=== PATIENT | female | born 1935 | race Caucasian/White ===

== ENCOUNTER 2024-01-29 17:52 | Inpatient (IN) | payer MEDICARE, OTHER, SELFPAY ==
[2024-01-29] VITALS (19 sets, daily range): BP systolic 148–220; BP diastolic 65–90; PULSE 79–92; RESP 12–29; TEMP 36.7–37; O2SAT 94–98; BMI 16.1
--- NOTE | 2024-01-29 | DI.CT.S_ITS ---
PROCEDURE: CT CERVICAL SPINE WO CON INDICATIONS: Pain TECHNIQUE: Noncontrast 3 mm thick sections acquired from the skull base to the T4 level. Sagittal and coronal reformats were then constructed. For radiation dose reduction, the following was used: automated exposure control, adjustment of mA and/or kV according to patient size. COMPARISON: None. FINDINGS: Image quality: Diagnostic Bones: Moderate spondylotic changes. Vertebral body heights are well maintained. No evidence of traumatic subluxation. There is leftward spinal curvature. Trace anterolisthesis of C7 on T1, probably degenerative Soft tissues: No pathologic prevertebral soft tissue swelling. Chest findings are separately dictated. Vascular calcifications. IMPRESSION: No displaced fracture or traumatic subluxation. Moderate spondylotic changes. If there is high concern for further derangement, consider MRI evaluation. Dictated by: Nahid Montalvo M.D. on 01/29/2024 at 20:04 Approved by: Nahid Montalvo M.D. on 01/29/2024 at 20:05
--- NOTE | 2024-01-29 | DI.CT.S_ITS ---
PROCEDURE: CT CHEST ABD PEL WO CON INDICATIONS: Fall/ Lower back and hip pain TECHNIQUE: After the administration of oral contrast, 5 mm thick sections acquired from the lung apices to the symphysis pubis. 5 mm thick coronal and sagittal reformats acquired, with additional 7 mm coronal MIP reformats through the lungs. For radiation dose reduction, the following was used: automated exposure control, adjustment of mA and/or kV according to patient size. COMPARISON: None. FINDINGS: Image quality: Motion degraded Lungs and pleura: Scattered scarring and atelectasis. No pneumothorax or hemothorax. No pulmonary laceration or contusion. No pleural effusions. No overtly suspicious pulmonary nodule. Follow-up for micro nodules for example in the left is optional for high risk patients. Mediastinum, heart, and esophagus: Not well assessed without intravenous contrast. No definite mediastinal hematoma. Coronary calcifications and annular calcifications. Ectatic ascending aorta 4.1 cm. No pathologic lymph nodes by size criteria. Chest wall and thyroid: Unremarkable Liver: No contour deforming mass. Gallbladder and biliary system: Cholelithiasis. CBD measures 6-7 mm at the upper limit of normal, correlate with LFTs. Pancreas: No ductal dilation Spleen: Nonenlarged Adrenals: No discrete nodules Kidneys: No contour deforming mass or hydronephrosis Evaluation of the solid organs is very limited without IV contrast. Vessels and lymph nodes: Atherosclerotic calcifications. Very tortuous aorta. No definite aneurysmal dilation within the limits of noncontrast evaluation. Bowel and peritoneum: No definite distal bowel obstruction. No drainable abscess or hemoperitoneum identified. Body wall: Unremarkable abdominal wall Pelvis: Distended bladder. A catheter is in place. Air is seen within the bladder likely iatrogenic. Uterus is not seen. The pelvis is obscured by metallic artifact. Bones: Right hip arthroplasty in place. Dislocation of the left hip arthroplasty. No pubic diastasis. Superior endplate height loss at T11, age-indeterminate. Less than 50% height loss. 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 Age-indeterminate superior endplate height loss at T11, less than 50%. No definite acute intrathoracic or intra-abdominal traumatic injury. Very limited noncontrast CT. Cholelithiasis and ectatic CBD, possibly incidental. Correlate with LFTs and right upper quadrant symptoms. Other findings above. Dictated by: Nahid Montalvo M.D. on 01/29/2024 at 20:06 Approved by: Nahid Montalvo M.D. on 01/29/2024 at 20:13
--- NOTE | 2024-01-29 18:10 | DI.CT.S_ITS ---
PROCEDURE: CT HEAD/BRAIN WO CON INDICATIONS: Alt MSE TECHNIQUE: Noncontrast 4.5 mm thick angled axial sections acquired from the foramen magnum to the vertex, with coronal and sagittal reformats. For radiation dose reduction, the following was used: automated exposure control, adjustment of mA and/or kV according to patient size. COMPARISON: None. FINDINGS: Image quality: Evaluation is limited in the posterior fossa due to the metallic artifact CSF spaces: Basal cisterns are patent. Lateral ventricles are symmetric. Volume: Vascular calcifications. Periventricular white matter disease is commonly seen with chronic microangiopathy. Volume loss is present. These findings are moderate Brain: No acute hemorrhage or large territory loss of landa-white differentiation Craniofacial structures: No significant paranasal sinus opacity. IMPRESSION: No acute intracranial abnormality. If there is high concern for parenchymal pathology, consider further evaluation with MRI. Dictated by: Nahid Montalvo M.D. on 01/29/2024 at 20:03 Approved by: Nahid Montalvo M.D. on 01/29/2024 at 20:04
--- NOTE | 2024-01-29 18:31 | ED.GENADULT ---
HPI - General Adult General Chief complaint: Fall Stated complaint: Fall/Confusion Time Seen by Provider: 01/29/24 18:09 History of Present Illness HPI narrative: 89-year-old female found down in her home after she had not been seen for at least 24 hours, we will for check, seemed confused, complaining of left hip pain. Had recent fall. Denied pain to her head, neck, chest, upper back, lower back, abdomen and pelvis. She denies pain to her right leg. She denies pain to shoulders, arms, elbows, wrists, hands. She denied recent cough, shortness of breath or chest pain. She denied nausea vomiting diarrhea. She denies painful urination. She denies numbness or tingling to her left leg, can feel her left foot and leg. She does not think she is taking any blood thinner medications Related Data Home Medications Medication Instructions Recorded Confirmed estradiol 1 mg tablet 1 mg PO DAILY 01/30/24 01/30/24 famotidine 20 mg tablet 20 mg PO DAILY 01/30/24 01/30/24 hydrocodone 10 mg-acetaminophen 1 tab PO Q6H PRN pain 01/30/24 01/30/24 325 mg tablet levothyroxine 75 mcg tablet 75 mcg PO 01/30/24 (Synthroid) montelukast 10 mg tablet 10 mg PO DAILY 01/30/24 01/30/24 Allergies Allergy/AdvReac Type Severity Reaction Status Date / Time pollen extracts Allergy Verified 01/29/24 18:41 Review of Systems Review of Systems Narrative: per HPI Patient History Social History Smoking Status: Never smoker Exam Narrative Exam Narrative: GENERAL: Well-developed patient, in mild distress. HEAD: Atraumatic. Normocephalic. EYES: Pupils equal round and reactive. Extraocular motions intact. No scleral icterus. No injection or drainage. ENT: Nose without bleeding, purulent drainage. Throat without erythema, tonsillar hypertrophy or exudate. Airway patent. NECK: Trachea midline. Non tender CARDIOVASCULAR: Regular rate and rhythm without murmurs, gallops, or rubs. RESPIRATORY: Clear to auscultation. Breath sounds equal bilaterally. No wheezes, rales, or rhonchi. GASTROINTESTINAL: Abdomen soft, non-tender, nondistended. EXTREMITIES: No edema or joint tenderness. Tenderness to left hip lateral and anterior BACK: Nontender without deformity or crepitance. No flank tenderness. Erythema and decubitus changes low lumbar, see nurse documentation photo NEURO: AOx3. Motor limited by pain left lower extremity, otherwise seems to be moving bilateral upper extremities well, right leg without difficulty, can wiggle toes left leg. No facial droop, clear speech SKIN: No rash or erythema of visible areas Initial Vital Signs Initial Vital Signs: Vital Signs Temperature 98.3 F 01/29/24 17:58 Pulse Rate 85 01/29/24 17:58 Respiratory Rate 16 01/29/24 17:58 Blood Pressure 193/79 H 01/29/24 17:58 Pulse Oximetry 98 01/29/24 17:58 Oxygen Delivery Method Room Air 01/29/24 17:58 Course Orders Ordered: Acetaminophen (Acetaminophen 325 Mg Tablet) 650 mg PO Q6H PRN PRN Reason: Fever/Mild Pain (1-3) Hydrocodone Bitart/Acetaminophen (Hydrocodone/Acet 5/325 Tablet) 1 tab PO Q4H PRN PRN Reason: Pain, Moderate (4-6) Hydralazine HCl (Hydralazine 20 Mg/Ml Vial) 10 mg IV Q4H PRN PRN Reason: SBP > 160 Last Admin: 01/30/24 03:57 Dose: 10 mg Documented By: WILLIE Sodium Chloride (Normal Saline 0.9%) 1,000 mls @ 100 mls/hr IV CONT DARIEN Last Admin: 01/30/24 03:36 Dose: Not Given Documented By: WILLIE Naloxone HCl (Naloxone 0.4 Mg/Ml Vial) 0.2 mg IV Q2MIN PRN PRN Reason: Opiate Reversal Sodium Chloride (Sodium Chloride 0.9% Flush) 10 ml IV PRN PRN PRN Reason: Flush Sodium Chloride (Sodium Chloride 0.9% Flush) 10 ml IV BID DARIEN Discontinued Medications Hydromorphone HCl (Hydromorphone 0.5 Mg Inj) 0.5 mg IV NOW ONE Stop: 01/29/24 22:37 Last Admin: 01/29/24 22:40 Dose: 0.5 mg Documented By: Sodium Chloride (Normal Saline 0.9%) 1,000 mls @ 150 mls/hr IV CONT DARIEN Last Infusion: 01/30/24 03:00 Dose: 100 mls/hr Documented By: Admin: 06/30/24 18:48 Dose: 150 mls/hr Documented By: RICH Sodium Chloride (Normal Saline 0.9%) 1,000 mls @ 1,000 mls/hr IV BOLUS ONE Stop: 01/29/24 21:15 Last Admin: 01/29/24 20:00 Dose: 1,000 mls/hr Documented By: Propofol (Propofol 200 Mg/20 Ml Vial) 100 mg IV NOW ONE Stop: 01/29/24 23:48 Last Admin: 01/30/24 01:12 Dose: 60 mg Documented By: Vital Signs Vital signs: Vital Signs - 8 hr 01/30/24 00:00 01/30/24 00:00 01/30/24 00:30 Pulse Rate 80 80 Respiratory Rate 11 L 12 Blood Pressure 176/74 H Pulse Oximetry 99 98 01/30/24 00:30 01/30/24 00:34 01/30/24 00:34 Pulse Rate 88 Respiratory Rate 11 L Blood Pressure 175/72 H 170/75 H Pulse Oximetry 99 01/30/24 00:35 01/30/24 00:35 01/30/24 00:35 Pulse Rate 80 89 Respiratory Rate 18 25 H Blood Pressure 185/78 H 186/77 H Pulse Oximetry 100 99 01/30/24 00:40 01/30/24 00:40 01/30/24 00:41 Pulse Rate 81 81 Respiratory Rate 17 6 L Blood Pressure 153/65 H 153/65 H Pulse Oximetry 99 98 01/30/24 00:43 01/30/24 00:46 01/30/24 00:46 Pulse Rate 79 80 Respiratory Rate 12 13 Blood Pressure 211/84 H 211/84 H Pulse Oximetry 100 100 01/30/24 00:49 01/30/24 00:50 01/30/24 00:50 Pulse Rate 81 81 Respiratory Rate 12 12 Blood Pressure 178/73 H 178/73 H Pulse Oximetry 97 97 01/30/24 00:51 01/30/24 00:55 01/30/24 00:55 Pulse Rate 82 80 Respiratory Rate 18 12 Blood Pressure 166/73 H 179/77 H Pulse Oximetry 97 97 01/30/24 01:00 01/30/24 01:00 01/30/24 01:05 Pulse Rate 80 Respiratory Rate 12 Blood Pressure 176/70 H 169/72 H Pulse Oximetry 97 01/30/24 01:05 01/30/24 01:10 01/30/24 01:10 Pulse Rate 81 81 Respiratory Rate 12 12 Blood Pressure 166/73 H Pulse Oximetry 97 97 Medical Decision Making Lab Data Lab results reviewed: Yes I reviewed the patient's lab results. 01/29/24 18:46 01/29/24 18:46 Labs: Lab Results 01/29/24 01/29/24 01/29/24 Range/Units 18:28 18:28 18:46 WBC 16.5 H (4.5-11.0) X10^3/uL RBC 4.82 (4.0-5.2) X10^6/uL Hgb 14.6 (12.0-16.0) g/dL Hct 43.3 (36-46) % MCV 89.8 (80-100) fL MCH 30.3 (26-34) PG MCHC 33.8 (30-36) % RDW 14.8 (11.6-14.8) % Plt Count 289 (150-400) X10^3/uL Neut % (Auto) 87.8 H (50-75) % Lymph % (Auto) 3.7 L (25-40) % [place] % (Auto) 8.0 (3-14) % Eos % (Auto) 0.0 L (2-4) % Baso % (Auto) 0.5 (0-2) % Neut # (Auto) 24674 H (6140-0141) /uL Lymph # (Auto) 600 L (0794-7870) /uL [place] # (Auto) 1300 H (0-900) /uL Eos # (Auto) 0 (0-450) /uL Baso # (Auto) 100 (0-100) /uL PT 10.4 (9.4-12.5) SECONDS INR 0.9 (0.9-1.3) APTT 25 L (25.1-36.5) SECONDS Sodium 126 L (137-145) mmol/L Potassium 3.5 (3.4-5.1) mmol/L Chloride 88 L (98-107) mmol/L Carbon Dioxide 28 (22-32) mmol/L BUN 29 H (7-17) mg/dL Creatinine 1.08 H (0.52-1.04) mg/dL Estimated GFR 49 L (>60) mL/min BUN/Creatinine Ratio 26.9 H (6-22) Glucose 112 H (80-110) mg/dL Lactate (0.7-2.1) mmol/L Calcium 9.3 (8.4-10.2) mg/dL Total Bilirubin 1.1 (0.2-1.3) mg/dL AST 187 H (14-36) IU/L ALT 61 H (<35) IU/L Alkaline Phosphatase 89 (38-126) U/L Ammonia (9-30) umol/L Total Creatine Kinase 2632 H (30-135) U/L Total Protein 7.6 (6.3-8.2) g/dL Albumin 4.5 (3.5-5.0) g/dL Globulin 3.1 (1.7-4.1) g/dL Albumin/Globulin Ratio 1.5 (1.0-2.8) TSH 11.2 H (0.47-4.68) uIU/mL Prolactin 9.0 (3.0-18.6) ng/mL Urine Color Yellow Urine Appearance Clear Urine pH 6.0 Normal (4.5-8.0) Ur Specific [place] 1.015 (1.000-1.035) Urine Protein 1+ H (Negative) Urine Glucose (UA) Negative (Negative) g/dL Urine Ketones 1+ H (NEGATIVE) Urine Occult Blood Trace-intact (Negative) Urine Nitrate Negative (Negative) Urine Bilirubin Negative (NEGATIVE) Urine Urobilinogen 0.2 (0.2) E.U./dL Ur Leukocyte Esterase Negative (NEGATIVE) Urine RBC None seen (0-5/HPF) Urine WBC None seen (0-5/HPF) Ur Squamous Epith Cells None seen (0-5/HPF) Urine Bacteria None seen (None) Ur Culture Indicated? Cult not indicated Vol Urine Centrifuged 10ml (spun) U Opiates 300ng/mL cut Positive H (Negative) Ur Oxycodone Screen Negative (Negative) Urine Methadone Screen Negative (Negative) Ur Barbiturates Screen Negative (Negative) U Tricyclic Antidepress Negative (Negative) Ur Phencyclidine Scrn Negative (Negative) Ur Amphetamines Screen Negative (Negative) U Methamphetamines Scrn Negative (Negative) Ur MDMA Scrn (Ecstasy) Negative (Negative) U Benzodiazepines Scrn Negative (Negative) Urine Cocaine Screen Negative (Negative) U Marijuana (THC) Screen Negative (Negative) Urine Specific [place] Normal (Normal) Ethyl Alcohol < 10 ( - 10) mg/dL Ur Creatinine Normal (Normal) 01/29/24 01/29/24 Range/Units 19:08 22:45 WBC (4.5-11.0) X10^3/uL RBC (4.0-5.2) X10^6/uL Hgb (12.0-16.0) g/dL Hct (36-46) % MCV (80-100) fL MCH (26-34) PG MCHC (30-36) % RDW (11.6-14.8) % Plt Count (150-400) X10^3/uL Neut % (Auto) (50-75) % Lymph % (Auto) (25-40) % [place] % (Auto) (3-14) % Eos % (Auto) (2-4) % Baso % (Auto) (0-2) % Neut # (Auto) (9002-6880) /uL Lymph # (Auto) (3191-4538) /uL [place] # (Auto) (0-900) /uL Eos # (Auto) (0-450) /uL Baso # (Auto) (0-100) /uL PT (9.4-12.5) SECONDS INR (0.9-1.3) APTT (25.1-36.5) SECONDS Sodium (137-145) mmol/L Potassium (3.4-5.1) mmol/L Chloride (98-107) mmol/L Carbon Dioxide (22-32) mmol/L BUN (7-17) mg/dL Creatinine (0.52-1.04) mg/dL Estimated GFR (>60) mL/min BUN/Creatinine Ratio (6-22) Glucose (80-110) mg/dL Lactate 2.5 H 2.4 H (0.7-2.1) mmol/L Calcium (8.4-10.2) mg/dL Total Bilirubin (0.2-1.3) mg/dL AST (14-36) IU/L ALT (<35) IU/L Alkaline Phosphatase (38-126) U/L Ammonia < 9 L (9-30) umol/L Total Creatine Kinase (30-135) U/L Total Protein (6.3-8.2) g/dL Albumin (3.5-5.0) g/dL Globulin (1.7-4.1) g/dL Albumin/Globulin Ratio (1.0-2.8) TSH (0.47-4.68) uIU/mL Prolactin (3.0-18.6) ng/mL Urine Color Urine Appearance Urine pH (4.5-8.0) Ur Specific [place] (1.000-1.035) Urine Protein (Negative) Urine Glucose (UA) (Negative) g/dL Urine Ketones (NEGATIVE) Urine Occult Blood (Negative) Urine Nitrate (Negative) Urine Bilirubin (NEGATIVE) Urine Urobilinogen (0.2) E.U./dL Ur Leukocyte Esterase (NEGATIVE) Urine RBC (0-5/HPF) Urine WBC (0-5/HPF) Ur Squamous Epith Cells (0-5/HPF) Urine Bacteria (None) Ur Culture Indicated? Vol Urine Centrifuged U Opiates 300ng/mL cut (Negative) Ur Oxycodone Screen (Negative) Urine Methadone Screen (Negative) Ur Barbiturates Screen (Negative) U Tricyclic Antidepress (Negative) Ur Phencyclidine Scrn (Negative) Ur Amphetamines Screen (Negative) U Methamphetamines Scrn (Negative) Ur MDMA Scrn (Ecstasy) (Negative) U Benzodiazepines Scrn (Negative) Urine Cocaine Screen (Negative) U Marijuana (THC) Screen (Negative) Urine Specific [place] (Normal) Ethyl Alcohol ( - 10) mg/dL Ur Creatinine (Normal) Point of Care Testing Test Results Negative Glucose POC 112 Urine Dip Bedside Urine Glucose Negative Bedside Urine Bilirubin - Negative Bedside Urine Ketone +/- 5 Urine Specific [place] 1.015 Bedside Urine Occult Blood +/- Bedside Urine pH 6.0 Bedside Urine Protein +/- 15 Bedside Urine Urobilinogen - Negative Bedside Urine Nitrite - Negative Bedside Urine Leukocytes - Negative Esterase Point of care testing: Point of Care Testing Test Results Negative Glucose POC 112 Urine Dip Bedside Urine Glucose Negative Bedside Urine Bilirubin - Negative Bedside Urine Ketone +/- 5 Urine Specific [place] 1.015 Bedside Urine Occult Blood +/- Bedside Urine pH 6.0 Bedside Urine Protein +/- 15 Bedside Urine Urobilinogen - Negative Bedside Urine Nitrite - Negative Bedside Urine Leukocytes - Negative Esterase Imaging Data CT scan - head: Radiologist's Impression: [address] [address] [address] Scan Report Signed Patient: Donya Arreguin (Adamaris) MR#: [id number] : 1935 Acct:[id number] Age/Sex: 89 / F Date of Service: 01/29/24 Loc: ED Accession Number: [id number] Procedure: CT head/brain wo con Ordering Provider: Mario Dupont MD PROCEDURE: CT HEAD/BRAIN WO CON INDICATIONS: Alt MSE TECHNIQUE: Noncontrast 4.5 mm thick angled axial sections acquired from the foramen magnum to the vertex, with coronal and sagittal reformats. For radiation dose reduction, the following was used: automated exposure control, adjustment of mA and/or kV according to patient size. COMPARISON: None. FINDINGS: Image quality: Evaluation is limited in the posterior fossa due to the metallic artifact CSF spaces: Basal cisterns are patent. Lateral ventricles are symmetric. Volume: Vascular calcifications. Periventricular white matter disease is commonly seen with chronic microangiopathy. Volume loss is present. These findings are moderate Brain: No acute hemorrhage or large territory loss of landa-white differentiation Craniofacial structures: No significant paranasal sinus opacity. IMPRESSION: No acute intracranial abnormality. If there is high concern for parenchymal pathology, consider further evaluation with MRI. Dictated by: Nahid Montlavo M.D. on 01/29/2024 at 20:03 Approved by: Nahid Montalvo M.D. on 01/29/2024 at 20:04 [facility] Narrative Medical decision making narrative: 89-year-old female found down at private residence on the ground for 24 hours, seemed confused, left hip pain, tenderness on exam, left hip x-ray pending. CT head C-spine chest abdomen and pelvis imaging. Labs pending including urinalysis, troponin, tox screen, CPK, urinalysis. Low lumbar decubitus skin changes noted, nurse photo documentation done. CT head no acute changes. CT cervical spine. Impressions: ?no displaced fracture or traumatic subluxation. Moderate spondylotic changes. If there is high concern for further derangement, consider MRI evaluation. ? Radiology report CT chest abdomen and pelvis without contrast. 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 Age indeterminate superior endplate height loss at T11, less than 10%. No definite acute intrathoracic or intra-abdominal traumatic injury. Very limited noncontrast CT. Cholelithiasis and ectatic CBD, possibly incidental. Correlate with LFTs and right upper quadrant symptoms. Other findings above. ? Radiology report White blood cell count 56321 elevated, UA pending. CPK 2000 elevated, rhabdomyolysis noted, IV fluid bolus. Left hip arthroplasty dislocation on imaging, other imaging studies negative including head CT. Keep NPO. IV conscious sedation for attempted relocation of left dislocated hip arthroplasty, might have been out for some time. Patient had some distal left femur pain as well, no gross deformity, additional imaging for the rest of the femur also requested. X-ray left femur. Impressions: Superior left hip arthroplasty dislocation is seen on CT. No displaced fracture of the femoral shaft.. Radiology report Left femur distal portion without fracture, we will proceed with left hip arthroplasty dislocation reduction attempt. Conscious sedation attempt after verbal consent from patient, could not reach family members, IV Dilaudid given prior, IV propofol, RT present gave jaw lift respiratory support, could feel some sliding of arthroplasty, but no reduction successful. We will contact Orthopedic surgery, possible reduction in operating room. We will consult hospitalist regarding postoperative placement and further treatment for rhabdomyolysis 0100, still awaiting call back from Orthopedic surgery, case discussed with hospitalist Nicola to anticipate further treatment inpatient post reduction for rhabdomyolysis Case discussed with Orthopedic surgery Dr. Lowry, patient might require open reduction given the time likely out, requests admit to hospitalist for further treatment of rhabdomyolysis and better preparation for possible open procedure later today Case discussed with hospitalist Dr. Petersen, accepts patient for admission to inpatient Critical Care Time Critical Care Time Critical Care Time: Yes Total Critical Care Time: 45 Attestation: The high probability of a clinically significant, sudden or life threatening deterioration of the [cardiopulmonary, abdominopelvic, musculoskeletal] system(s) required my full and direct attention, intervention and personal management. The aggregate critical care time was [45] minutes. This time is in addition to time spent performing reported procedures but includes the following: [x] Data Review and interpretation [x] Patient assessment and monitoring of vital signs [x] Documentation x Medication orders and management Discharge Plan Departure Clinical Impression: Left hip pain, Decubitus skin ulcer, Hip dislocation, left, Rhabdomyolysis Admit Date/Time: 01/30/24 01:10 Admit Provider: Morales Petersen
[2024-01-29 18:38] LABS: Appearance Urine UA CLEAR; Bilirubin Urine UA NEGATIVE (NEGATIVE); Color Urine UA YELLOW; Glucose Urine UA NEGATIVE (Negative); Ketones Urine UA 1+ (NEGATIVE); Leukocyte Esterase Urine UA NEGATIVE (NEGATIVE); Nitrite Urine UA NEGATIVE (Negative); Occult Blood Urine UA TRACE-INTACT (Negative); Protein Urine UA 1+ (Negative); Specific Gravity Urine UA 1.015 (1.000-1.035); Urobilinogen Urine UA 0.2 E.U./dL (0.2)
[2024-01-29 18:44] LABS: Ur Creatinine Normal (Normal); Ur Specific Gravity Normal (Normal); Urine pH Normal (Normal)
[2024-01-29 18:45] LABS: UR Morphine/Opiate cutoff 300 Positive (Negative); Urine Amphetamines Negative (Negative); Urine Barbiturates Negative (Negative); Urine Benzodiazepines Negative (Negative); Urine Cocaine Negative (Negative); Urine MDMA Negative (Negative); Urine Methadone Negative (Negative); Urine Methamphetamines Negative (Negative); Urine Oxycodone Negative (Negative); Urine Phencyclidine Negative (Negative); Urine Tetrahydrocannabinol Negative (Negative); Urine Tricyclic Antidepressant Negative (Negative)
[2024-01-29] MEDS: SODIUM CHLORIDE 0.9% 1,000 ML 150 ML IV (18:48)
[2024-01-29 18:54] LABS: Add Manual Diff / Slide Review NO; Basophils Absolute Auto 100 /uL (0-100); Basophils Percent Auto 0.5 % (0-2); Eosinophils Absolute Auto 0 /uL (0-450); Hematocrit 43.3 % (36-46); Hemoglobin 14.6 g/dL (12.0-16.0); Lymphocytes Absolute Auto 600 /uL (1100-4500); Lymphocytes Percent Auto 3.7 % (25-40); Mean Corpuscular HGB Conc 33.8 % (30-36); Mean Corpuscular Hemoglobin 30.3 PG (26-34); Mean Corpuscular Volume 89.8 fL (80-100); Monocytes Absolute Auto 1300 /uL (0-900); Neutrophils Absolute Auto 14500 /uL (1500-7000); Neutrophils Percent Auto 87.8 % (50-75); Platelet Count 289 X10^3/uL (150-400); Red Blood Cell Count 4.82 X10^6/uL (4.0-5.2); Red Cell Distribution Width 14.8 % (11.6-14.8); White Blood Cell Count 16.5 X10^3/uL (4.5-11.0)
[2024-01-29 19:07] LABS: INR 0.9 (0.9-1.3); Prothrombin Time 10.4 SECONDS (9.4-12.5)
[2024-01-29 19:09] LABS: Alanine Aminotransferase 61 IU/L (<35); Albumin 4.5 g/dL (3.5-5.0); Albumin Globulin Ratio 1.5 (1.0-2.8); Alkaline Phosphatase 89 U/L (38-126); Aspartate Aminotransferase 187 IU/L (14-36); BUN Creatinine Ratio 26.9 (6-22); Bilirubin Total 1.1 mg/dL (0.2-1.3); Blood Urea Nitrogen 29 mg/dL (7-17); Calcium 9.3 mg/dL (8.4-10.2); Carbon Dioxide 28 mmol/L (22-32); Chloride 88 mmol/L (98-107); Estimated Glomerular Filt Rate 49 mL/min (>60); Ethanol (ETOH) < 10 mg/dL; Globulin 3.1 g/dL (1.7-4.1); Glucose 112 mg/dL (80-110); HEMOLYSIS 47 (0-50); PTT Partial Thromboplastin Tim 25 SECONDS (25.1-36.5); Potassium 3.5 mmol/L (3.4-5.1); Sodium 126 mmol/L (137-145); Total Protein 7.6 g/dL (6.3-8.2)
[2024-01-29 19:09] LABS: Bacteria Urine None Seen; Culture Indicated Urine Cult Not Indicated; RBC Urine None Seen (0-5/HPF); Squamous Epithelial Cell Urine None Seen (0-5/HPF); Urine Volume 10mL (spun); WBC Urine None Seen (0-5/HPF)
--- NOTE | 2024-01-29 19:15 | PC.NURSE ---
Assumed cares from Sultana FERNÁNDEZ. Pt to CT scan.
[2024-01-29 19:31] LABS: Creatine Kinase 2632 U/L (30-135)
[2024-01-29 19:31] LABS: Ammonia (NH3) < 9 umol/L (9-30); Lactate (Lactic Acid) 2.5 mmol/L (0.7-2.1)
[2024-01-29] MEDS: SODIUM CHLORIDE 0.9% 1,000 ML 1000 ML IV (20:00)
--- NOTE | 2024-01-29 20:08 | PC.NURSE ---
Pt back from CT. WBC 16.[address] Dupont notified. ordered.
[2024-01-29 20:42] LABS: Thyroid Stimulating Hormone 11.2 uIU/mL (0.47-4.68)
[2024-01-29 20:50] LABS: Reflexed Lactate in 2 Hours Y
--- NOTE | 2024-01-29 21:38 | DI.RAD.S_ITS ---
PROCEDURE: XR FEMUR LT MIN 2V INDICATIONS: left hip/thigh pain TECHNIQUE: 2 views of the femur were acquired. COMPARISON: None. FINDINGS: Bones: Superior dislocation of the left hip arthroplasty, as seen on CT. Partially seen lumbosacral and pubic symphysis degenerative changes. No displaced fracture of the femoral shaft. The knee is not well seen on this study. Soft tissues: No suspicious calcifications IMPRESSION: Superior left hip arthroplasty dislocation, as seen on CT. No displaced fracture of the femoral shaft. If there is high concern for occult injury, consider repeat radiography or cross-sectional imaging. Dictated by: Nahid Montalvo M.D. on 01/29/2024 at 22:41 Approved by: Nahid Montalvo M.D. on 01/29/2024 at 22:43
--- NOTE | 2024-01-29 22:37 | PC.NURSE ---
BP 202/85. Dr Dupont notified. Verbal order received for IV hydromorphone 0.5 mg
[2024-01-29] MEDS: HYDROMORPHONE 0.5 MG INJ IV (22:40)
[2024-01-30] VITALS (51 sets, daily range): BP systolic 136–211; BP diastolic 59–92; PULSE 79–101; RESP 6–25; TEMP 36.2–37.1; O2SAT 95–100; BMI 17.9
[2024-01-30 00:20] LABS: Lactate 2HR (Lactic Acid Rflx) 2.4 mmol/L (0.7-2.1)
[2024-01-30] MEDS: propofoL 200 MG/20 ML VIAL 100 MG IV (01:12)
--- NOTE | 2024-01-30 01:14 | PC.NURSE ---
Pt tolerated conscious sedation. No issues during procedure.
--- NOTE | 2024-01-30 01:23 | PC.NURSE ---
Repositioned pt to right side, using pillows to bolster pt to right side.
--- NOTE | 2024-01-30 02:08 | P.HP_ITS ---
History of Present Illness History of Present Illness Date Patient Seen: 01/30/24 Time Patient Seen: 02:09 Chief complaint: Fall/Confusion Narrative: 89 years old female with a past medical history of hypertension and who lives at home by herself was brought to the emergency room status post fall with an unknown downtime from anywhere 24 hours to 36 hours before was checked in by family/friends. Was in significant pain and blood pressure was 213/86. Patient received IV pain medications in the emergency room and now drowsy. Unable to get any significant history from the patient. Most of the history has been obtained from the chart and caregivers. Further workup showed a white count of 16.5, hemoglobin of 14.6 and a platelet of 289. Sodium was 126 with a BUN of 29 with a creatinine of 1.08. AST/ALT was 187/61. Urine analysis is negative for leukocyte esterase. Urine toxicology screen is negative. Follow-up CT head and brain shows no acute process. CT cervical spine shows no significant fractures. CT chest and abdomen/pelvis showed superior dislocation of left hip arthroplasty age-indeterminate. Unable to correct the dislocation emergency room and further labs revealed a CPK of 2000. Reviewed with orthopedic surgery and recommended admission for optimizing medically before proceeding with surgery in the OR to fix the dislocation PENDING SALE TO [facility] Social History Smoking Status: Never smoker Meds Home Medications and Allergies Allergies Allergy/AdvReac Type Severity Reaction Status Date / Time pollen extracts Allergy Verified 01/29/24 18:41 Review of Systems Review of Systems Narrative: drowsy Exam Vital Signs (past 8 hours): - 01/29/24 18:30 01/29/24 19:00 01/29/24 19:31 Temperature 98.1 F Pulse Rate 80 81 83 Respiratory Rate 23 Blood Pressure Pulse Oximetry 97 98 98 01/29/24 19:40 01/29/24 19:40 01/29/24 20:00 Temperature 98.2 F 98.4 F Pulse Rate 82 83 Respiratory Rate 27 H 19 Blood Pressure 176/78 H Pulse Oximetry 97 97 01/29/24 20:00 01/29/24 20:30 01/29/24 20:30 Temperature 98.4 F Pulse Rate 85 Respiratory Rate 25 H Blood Pressure 189/81 H 183/81 H Pulse Oximetry 96 01/29/24 20:44 01/29/24 20:44 01/29/24 21:00 Temperature 98.4 F 98.6 F Pulse Rate 86 84 Respiratory Rate 28 H 29 H Blood Pressure 175/79 H Pulse Oximetry 97 98 01/29/24 21:00 01/29/24 21:30 01/29/24 21:30 Temperature 98.6 F Pulse Rate 80 Respiratory Rate 15 Blood Pressure 162/74 H 213/86 H Pulse Oximetry 98 01/29/24 22:24 01/29/24 22:25 01/29/24 22:25 Temperature Pulse Rate 91 H 92 H Respiratory Rate 18 20 Blood Pressure 220/90 H Pulse Oximetry 94 97 01/29/24 22:27 01/29/24 22:27 01/29/24 22:30 Temperature Pulse Rate 88 87 Respiratory Rate 18 18 Blood Pressure 204/81 H Pulse Oximetry 98 98 01/29/24 22:30 01/29/24 23:00 01/29/24 23:00 Temperature Pulse Rate 80 Respiratory Rate 12 Blood Pressure 184/81 H 161/68 H Pulse Oximetry 95 01/29/24 23:30 01/29/24 23:30 01/29/24 23:50 Temperature Pulse Rate 79 85 Respiratory Rate 13 12 Blood Pressure 148/65 H Pulse Oximetry 96 98 01/29/24 23:50 01/30/24 00:00 01/30/24 00:00 Temperature Pulse Rate 80 Respiratory Rate 11 L Blood Pressure 174/75 H 176/74 H Pulse Oximetry 99 01/30/24 00:30 01/30/24 00:30 01/30/24 00:34 Temperature Pulse Rate 80 88 Respiratory Rate 12 11 L Blood Pressure 175/72 H Pulse Oximetry 98 99 01/30/24 00:34 01/30/24 00:35 01/30/24 00:35 Temperature Pulse Rate 80 89 Respiratory Rate 18 25 H Blood Pressure 170/75 H 185/78 H Pulse Oximetry 100 99 01/30/24 00:35 01/30/24 00:40 01/30/24 00:40 Temperature Pulse Rate 81 Respiratory Rate 17 Blood Pressure 186/77 H 153/65 H Pulse Oximetry 99 01/30/24 00:41 01/30/24 00:43 01/30/24 00:46 Temperature Pulse Rate 81 79 80 Respiratory Rate 6 L 12 13 Blood Pressure 153/65 H 211/84 H Pulse Oximetry 98 100 100 01/30/24 00:46 01/30/24 00:49 07/01/24 00:50 Temperature Pulse Rate 81 81 Respiratory Rate 12 12 Blood Pressure 211/84 H 178/73 H Pulse Oximetry 97 97 01/30/24 00:50 01/30/24 00:51 01/30/24 00:55 Temperature Pulse Rate 82 80 Respiratory Rate 18 12 Blood Pressure 178/73 H 166/73 H Pulse Oximetry 97 97 01/30/24 00:55 01/30/24 01:00 01/30/24 01:00 Temperature Pulse Rate 80 Respiratory Rate 12 Blood Pressure 179/77 H 176/70 H Pulse Oximetry 97 01/30/24 01:05 01/30/24 01:05 01/30/24 01:10 Temperature Pulse Rate 81 81 Respiratory Rate 12 12 Blood Pressure 169/72 H Pulse Oximetry 97 97 01/30/24 01:10 Temperature Pulse Rate Respiratory Rate Blood Pressure 166/73 H Pulse Oximetry Oxygen Delivery Method Room Air Narrative Exam Narrative: Patient is in no acute distress. Drowsy S1-S2 heard no S3 no S4 Air entry decreased bilaterally at the base Bruise in lower extremity Objective Labs 01/29/24 18:46 01/29/24 18:46 Labs: Laboratory Results - last 24 hr 01/29/24 01/29/24 01/29/24 18:28 18:28 18:46 WBC 16.5 H RBC 4.82 Hgb 14.6 Hct 43.3 MCV 89.8 MCH 30.3 MCHC 33.8 RDW 14.8 Plt Count 289 Neut % (Auto) 87.8 H Lymph % (Auto) 3.7 L [place] % (Auto) 8.0 Eos % (Auto) 0.0 L Baso % (Auto) 0.5 Neut # (Auto) 34252 H Lymph # (Auto) 600 L [place] # (Auto) 1300 H Eos # (Auto) 0 Baso # (Auto) 100 PT 10.4 INR 0.9 APTT 25 L Sodium 126 L Potassium 3.5 Chloride 88 L Carbon Dioxide 28 BUN 29 H Creatinine 1.08 H Estimated GFR 49 L BUN/Creatinine Ratio 26.9 H Glucose 112 H Lactate Calcium 9.3 Total Bilirubin 1.1 AST 187 H ALT 61 H Alkaline Phosphatase 89 Ammonia Total Creatine Kinase 2632 H Total Protein 7.6 Albumin 4.5 Globulin 3.1 Albumin/Globulin Ratio 1.5 TSH 11.2 H Prolactin 9.0 Urine Color Yellow Urine Appearance Clear Urine pH 6.0 Normal Ur Specific [place] 1.015 Urine Protein 1+ H Urine Glucose (UA) Negative Urine Ketones 1+ H Urine Occult Blood Trace-intact Urine Nitrate Negative Urine Bilirubin Negative Urine Urobilinogen 0.2 Ur Leukocyte Esterase Negative Urine RBC None seen Urine WBC None seen Ur Squamous Epith Cells None seen Urine Bacteria None seen Ur Culture Indicated? Cult not indicated Vol Urine Centrifuged 10ml (spun) U Opiates 300ng/mL cut Positive H Ur Oxycodone Screen Negative Urine Methadone Screen Negative Ur Barbiturates Screen Negative U Tricyclic Antidepress Negative Ur Phencyclidine Scrn Negative Ur Amphetamines Screen Negative U Methamphetamines Scrn Negative Ur MDMA Scrn (Ecstasy) Negative U Benzodiazepines Scrn Negative Urine Cocaine Screen Negative U Marijuana (THC) Screen Negative Urine Specific [place] Normal Ethyl Alcohol < 10 Ur Creatinine Normal 01/29/24 01/29/24 19:08 22:45 WBC RBC Hgb Hct MCV MCH MCHC RDW Plt Count Neut % (Auto) Lymph % (Auto) [place] % (Auto) Eos % (Auto) Baso % (Auto) Neut # (Auto) Lymph # (Auto) [place] # (Auto) Eos # (Auto) Baso # (Auto) PT INR APTT Sodium Potassium Chloride Carbon Dioxide BUN Creatinine Estimated GFR BUN/Creatinine Ratio Glucose Lactate 2.5 H 2.4 H Calcium Total Bilirubin AST ALT Alkaline Phosphatase Ammonia < 9 L Total Creatine Kinase Total Protein Albumin Globulin Albumin/Globulin Ratio TSH Prolactin Urine Color Urine Appearance Urine pH Ur Specific [place] Urine Protein Urine Glucose (UA) Urine Ketones Urine Occult Blood Urine Nitrate Urine Bilirubin Urine Urobilinogen Ur Leukocyte Esterase Urine RBC Urine WBC Ur Squamous Epith Cells Urine Bacteria Ur Culture Indicated? Vol Urine Centrifuged U Opiates 300ng/mL cut Ur Oxycodone Screen Urine Methadone Screen Ur Barbiturates Screen U Tricyclic Antidepress Ur Phencyclidine Scrn Ur Amphetamines Screen U Methamphetamines Scrn Ur MDMA Scrn (Ecstasy) U Benzodiazepines Scrn Urine Cocaine Screen U Marijuana (THC) Screen Urine Specific [place] Ethyl Alcohol Ur Creatinine Assessment & Plan Assessment & Plan narrative: 89 years old female with a past medical history of hypertension and who lives at home by herself was brought to the emergency room status post fall with an unknown downtime from anywhere 24 hours to 36 hours before was checked in by family/friends. Was in significant pain and blood pressure was 213/86. Patient received IV pain medications in the emergency room and now drowsy. Unable to get any significant history from the patient. Most of the history has been obtained from the chart and caregivers. Further workup showed a white count of 16.5, hemoglobin of 14.6 and a platelet of 289. Sodium was 126 with a BUN of 29 with a creatinine of 1.08. AST/ALT was 187/61. Urine analysis is negative for leukocyte esterase. Urine toxicology screen is negative. Follow-up CT head and brain shows no acute process. CT cervical spine shows no significant fractures. CT chest and abdomen/pelvis showed superior dislocation of left hip arthroplasty age-indeterminate. Unable to correct the dislocation emergency room and further labs revealed a CPK of 2000. Reviewed with orthopedic surgery and recommended admission for optimizing medically before proceeding with surgery in the OR to fix the dislocation 1. Rhabdomyolysis likely secondary to fall with prolonged immobilization. IV fluids for now while trending the electrolytes/CPK levels and watch for any fluid overload. 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 Pain control with IV Dilaudid for now and follow orthopedics for further input 3. Hypertension urgency likely further complicated by underlying pain and anxiety. Initiate p.o. and IV hydralazine to keep the systolic under 160. May need to review home medications before resuming antihypertensives 4 decubitus ulcer chronic and stable 5. DVT prophylaxis will be with Lovenox if cleared by orthopedics for now will place SCDs Patient was evaluated with the help of a video communication device. Location of the patient is [facility] Patient will be admitted under inpatient status given the acute hip fracture needing surgical intervention/IV pain medications and expected length of stay greater than 2 midnights
[2024-01-30] MEDS: HYDRALAZINE 20 MG/ML VIAL 10 MG IV (03:57)
--- NOTE | 2024-01-30 08:06 | PC.NURSE ---
Addendum entered by Elizabet Bella R.N. 01/30/24 18:36: Patient had a closed reduction down in surgery, she is doing well and denies pain. She had a smear of stool on her pad and tried to use the bedpan but did not go. Blood pressure has come down with a systolic of 160s. Original Note: Patient is alert this morning and knows that she is in the hospital, her friend that found her down just called and stated that patient was having some hallucinations and was confused. She states that her sons both live out of state and out of town. Patient has a l. dislocated hip, she denies discomfort. Patient is resting comfortably at this time with ivf infusing.
[2024-01-30] MEDS: SODIUM CHLORIDE 0.9% 1,000 ML 100 ML IV (11:08)
[2024-01-30] MEDS: LACTATED RINGERS 1,000 ML 42 ML IV (12:04)
[2024-01-30 12:54] LABS: BUN Creatinine Ratio 31.3 (6-22); Blood Urea Nitrogen 26 mg/dL (7-17); Calcium 8.5 mg/dL (8.4-10.2); Carbon Dioxide 21 mmol/L (22-32); Chloride 101 mmol/L (98-107); Estimated Glomerular Filt Rate > 60 mL/min (>60); Glucose 80 mg/dL (80-110); HEMOLYSIS 18 (0-50); Lactate (Lactic Acid) 1.7 mmol/L (0.7-2.1); Potassium 3.5 mmol/L (3.4-5.1); Sodium 130 mmol/L (137-145)
--- NOTE | 2024-01-30 13:00 | P.HP_ITS ---
History of Present Illness History of Present Illness Date Patient Seen: 01/30/24 Time Patient Seen: 13:00 Chief complaint: Fall/Confusion Narrative: 89-year-old female seen in evaluation for her left hip. She reports that she was in the garden and was pulling a weed when she felt a pop in the left hip. This is not the 1st time that her hip has dislocated. She has had prior dislocations, she estimates 1 or 2 of them. She says that her hip was initially replaced in [place] within the last decade. She does not remember the exact date of that. She lives nearby here on [address]. She reports pain in the left hip. It has been present since the time of injury. It is worsened by movement and partially alleviated by rest. It does not radiate. She has no other known injuries [facility] Social History household members: none Smoking Status: Never smoker alcohol intake: current Meds Home Medications and Allergies Home Medications Medication Instructions Recorded Confirmed Type estradiol 1 mg tablet 1 mg PO DAILY 01/30/24 01/30/24 History famotidine 20 mg tablet 20 mg PO DAILY 01/30/24 01/30/24 History hydrocodone 10 mg-acetaminophen 1 tab PO Q6H PRN pain 01/30/24 01/30/24 History 325 mg tablet levothyroxine 75 mcg tablet 75 mcg PO DAILY 01/30/24 01/30/24 History (Synthroid) montelukast 10 mg tablet 10 mg PO DAILY 01/30/24 01/30/24 History Allergies Allergy/AdvReac Type Severity Reaction Status Date / Time pollen extracts Allergy Verified 01/30/24 11:46 Review of Systems Review of Systems ROS: Yes All systems reviewed with the patient and are negative except as otherwise documented Exam Vital Signs (past 8 hours): - 01/30/24 08:00 01/30/24 11:59 Temperature 98.5 F 98.8 F Pulse Rate 87 101 H Respiratory Rate 16 16 Blood Pressure 150/66 H 151/76 H Pulse Oximetry 100 100 Oxygen Delivery Method Room Air Oxygen Flow Rate 0 Oxygen Delivery Method Room Air Oxygen Flow Rate 0 Narrative Exam Narrative: Left lower extremity held in a position of shortening and external rotation. Sensation intact to light touch in L2 through S1 nerve distributions. Well- healed posterior incision. Flexes and extends hallux and ankle Const General: cooperative Orientation: alert and awake [facility] Head: normal to inspection Ears: hearing grossly normal bilaterally Eyes General: appearance normal, both eyes and all related structures Neck Neck: normal visual inspection Resp Effort & Inspection: normal respiratory effort and able to speak in complete sentences Cardio Pulses: other (peripheral pulses present) Skin Lesions: no lesions Rashes: no rashes Neuro General: patient alert, patient awake and moves all extremities Psych Appearance: grossly normal Objective Imaging Pelvis x-ray: My impression: Left prosthetic hip dislocation Labs 01/29/24 18:46 01/30/24 12:30 Labs: Laboratory Results - last 24 hr 01/29/24 01/29/24 01/29/24 18:28 18:28 18:46 WBC 16.5 H RBC 4.82 Hgb 14.6 Hct 43.3 MCV 89.8 MCH 30.3 MCHC 33.8 RDW 14.8 Plt Count 289 Neut % (Auto) 87.8 H Lymph % (Auto) 3.7 L [place] % (Auto) 8.0 Eos % (Auto) 0.0 L Baso % (Auto) 0.5 Neut # (Auto) 53752 H Lymph # (Auto) 600 L [place] # (Auto) 1300 H Eos # (Auto) 0 Baso # (Auto) 100 PT 10.4 INR 0.9 APTT 25 L Sodium 126 L Potassium 3.5 Chloride 88 L Carbon Dioxide 28 BUN 29 H Creatinine 1.08 H Estimated GFR 49 L BUN/Creatinine Ratio 26.9 H Glucose 112 H Lactate Calcium 9.3 Total Bilirubin 1.1 AST 187 H ALT 61 H Alkaline Phosphatase 89 Ammonia Total Creatine Kinase 2632 H Total Protein 7.6 Albumin 4.5 Globulin 3.1 Albumin/Globulin Ratio 1.5 TSH 11.2 H Prolactin 9.0 Urine Color Yellow Urine Appearance Clear Urine pH 6.0 Normal Ur Specific [place] 1.015 Urine Protein 1+ H Urine Glucose (UA) Negative Urine Ketones 1+ H Urine Occult Blood Trace-intact Urine Nitrate Negative Urine Bilirubin Negative Urine Urobilinogen 0.2 Ur Leukocyte Esterase Negative Urine RBC None seen Urine WBC None seen Ur Squamous Epith Cells None seen Urine Bacteria None seen Ur Culture Indicated? Cult not indicated Vol Urine Centrifuged 10ml (spun) U Opiates 300ng/mL cut Positive H Ur Oxycodone Screen Negative Urine Methadone Screen Negative Ur Barbiturates Screen Negative U Tricyclic Antidepress Negative Ur Phencyclidine Scrn Negative Ur Amphetamines Screen Negative U Methamphetamines Scrn Negative Ur MDMA Scrn (Ecstasy) Negative U Benzodiazepines Scrn Negative Urine Cocaine Screen Negative U Marijuana (THC) Screen Negative Urine Specific [place] Normal Ethyl Alcohol < 10 Ur Creatinine Normal 01/29/24 01/29/24 01/30/24 19:08 22:45 12:30 WBC RBC Hgb Hct MCV MCH MCHC RDW Plt Count Neut % (Auto) Lymph % (Auto) [place] % (Auto) Eos % (Auto) Baso % (Auto) Neut # (Auto) Lymph # (Auto) [place] # (Auto) Eos # (Auto) Baso # (Auto) PT INR APTT Sodium 130 L Potassium 3.5 Chloride 101 Carbon Dioxide 21 L BUN 26 H Creatinine 0.83 Estimated GFR > 60 BUN/Creatinine Ratio 31.3 H Glucose 80 Lactate 2.5 H 2.4 H 1.7 Calcium 8.5 Total Bilirubin AST ALT Alkaline Phosphatase Ammonia < 9 L Total Creatine Kinase Total Protein Albumin Globulin Albumin/Globulin Ratio TSH Prolactin Urine Color Urine Appearance Urine pH Ur Specific [place] Urine Protein Urine Glucose (UA) Urine Ketones Urine Occult Blood Urine Nitrate Urine Bilirubin Urine Urobilinogen Ur Leukocyte Esterase Urine RBC Urine WBC Ur Squamous Epith Cells Urine Bacteria Ur Culture Indicated? Vol Urine Centrifuged U Opiates 300ng/mL cut Ur Oxycodone Screen Urine Methadone Screen Ur Barbiturates Screen U Tricyclic Antidepress Ur Phencyclidine Scrn Ur Amphetamines Screen U Methamphetamines Scrn Ur MDMA Scrn (Ecstasy) U Benzodiazepines Scrn Urine Cocaine Screen U Marijuana (THC) Screen Urine Specific [place] Ethyl Alcohol Ur Creatinine Assessment & Plan Assessment and plan (1) Hip dislocation, left: Status: Acute Plan Plan to proceed with closed reduction of the left hip under anesthesia today. We will do this with a [place] table. We will use fluoroscopy for reduction confirmation. We will place the patient in an abduction pillow afterwards and plan to transitioned to an abduction brace. Discussed the procedure with her in detail today. Plan to proceed later today.
--- NOTE | 2024-01-30 13:26 | SUR.OPER ---
Patient supine on padded [place] table, one arm on padded arm board at <90, other arm padded and secured with tape across patient's chest, both legs secured in padded traction boots and positioned per surgeon, padded post at patient's groin, pressure points checked and padded.
--- NOTE | 2024-01-30 13:32 | PM.OP.1 ---
Operative Date/Time/Diagnoses Date of procedure: 01/30/24 Pre-op diagnosis: Prosthetic left hip dislocation Post-op diagnosis: same Procedure & Clinicians Procedure: Closed reduction of left hip Same procedure as scheduled: Yes Surgeon: Rafael Herbert Click Yes if Unassisted: Yes Anesthesia Type: General Operative Notes Procedure in detail: This patient sustained a closed left hip dislocation. She reports not having been down for significant period of time and says that it occurred while she was gardening. She has had some confusion since admission however and there are reports that she may have been down for longer than she indicated to me during our discussion today. She was counseled regarding closed reduction. The operative site was marked. Informed consent was signed. She was brought back to the operating room. A time-out procedure was performed. She was placed supine on the [place] table. Fluoroscopy was utilized to evaluate the left side confirming that it was dislocated. I initially attempted to externally rotate and placed traction on the dislocated hip. Her knee had a tendency to flex during this maneuver in order to limit any stress on her knee I therefore elected to proceed with a standard manual reduction of the hip. This involved having an emergency medicine physician assistant place pressure directly on the ASIS on the dislocated side. I internally rotated, flexed, and adducted the hip. I then placed traction. I felt a palpable clunk. Fluoroscopy was obtained demonstrating that the hip articulation was appropriately reduced. I internally and externally rotated the hip to the [place] table and maintained a reduction during this process. AP and lateral fluoroscopic images were saved. Post-operative Plan for aftercare: 1. Patient has been admitted to the hospitalist service and will remain inpatient for the time being. There are concerns that she made develop rhabdomyolysis and a minimum has an acute kidney injury. She will continue being treated medically for this 2. Patient is currently in a hip abduction pillow. She will be transitioned to a hip abduction brace. This should be set to block her from anything beyond neutral extension, 70? of flexion, and 15? of abduction 3. I will have the patient follow up outpatient with me in clinic after she discharges from the hospital. We will need to ascertain the details of her prior surgical history which at this point in time are unknown to me
--- NOTE | 2024-01-30 13:58 | DI.RAD.S_ITS ---
PROCEDURE: XR HIP W PEL IF DONE LT 2V INDICATIONS: HIP RELOCATION TECHNIQUE: 2 views of the hip were acquired. COMPARISON: None. FINDINGS: Fluoroscopic images demonstrate labeled left hip arthroplasty. There is good anatomic alignment on AP view. IMPRESSION: Left hip arthroplasty in appropriate anatomic location on provided AP view only. Dictated by: Magaly Zimmer M.D. on 01/30/2024 at 14:32 Approved by: Magaly Zimmer M.D. on 01/30/2024 at 14:33
[2024-01-30] MEDS: SODIUM CHLORIDE 0.9% 1,000 ML 75 ML IV (14:30)
[2024-01-30] MEDS: ALBUTEROL 2.5 MG/3 ML NEB (ADULT) INH (15:32)
--- NOTE | 2024-01-30 15:35 | PT-IP ANOTE ---
Pt underwent closed reduction of left hip today after dislocation. There are orders for anterior and posterior total hip precautions. Pt has abduction pillow and op note states transition to abduction brace with limitations in range. Brace not currently available and PT speaks with special events manager about process for this and special events manager following up. PT does not yet see an order for abduction brace.
--- NOTE | 2024-01-30 15:39 | CM.DANOTE ---
Patient is an 89 yo female who was admitted INPT status on 01/30/24 for Hip Dislocation/Found Down. Pt has MCR and PRE PREFERRED for insurance and her PCP is Dr. Osiel Mccarthy. EMR was reviewed. Per MD, pt found down by neighbor friend after GLF for unknown amount of time and developed Rhabdo and imaging showed hip dislocation. Per RN, pt confused and was having some hallucinations overnight. SW attempted to meet bedside with pt later in the day to see if she was less confused and pt now off the floor for surgical intervention for her hip dislocation. SW called pt's son Mario [phone] and explained role and he confirms that he and his brother do not live locally and pt is living alone in [place] and her neighbor friend Joanna is the primary support person locally. Pt has a cane that she will use at times and son states that pt can be difficult to get to accept help and trying to remain as independent as possible. Son thinks pt has a remote hx of SNF in [place] after a previous hip replacement years ago but no current supportive services in place. Mario believes that pt completed POA pwk making him her primary POA but he does not have a copy. Son Mario was up visiting pt about a month ago and states she was managing alright independently and was resistant to other help in the home. Mario's brother Naseem is currently in a SNF himself as he broke his back a few months ago and is still recovering and requiring assist himself and therefore he would not be able to help at this time. SW discussed process of re-location of hip and then to work with PT/OT likely tomorrow as pt still off the floor in PACU to determine d/c needs. Mario acknowledged understanding and appreciative and will help encourage pt in whatever d/c plan is recommended. Plan: SW to follow closely for PT/OT eval and recommendations to determine SNF vs HH when medically stable. CARLITOS Dove Discharge Planning/Care Management CM Discharge Assessment Start: 01/30/24 15:36 Freq: Status: Active Protocol: Document 01/30/24 15:36 BF (Rec: 01/30/24 15:38 BF [id number]) Discharge Planning Assessment Assigned [employer] Consultant CARLITOS Mondragon DPOA/Assigned Designee Name Jeronimo Martin Contact Information [phone] Advance Directives? No Advance Directives on File No History Provided By Patient,Family Member,Medical Record Has Patient been admitted in last 30 No days? Prior Living Arrangements House Household Members none Type of transporation used prior to Drives own vehicle admit Independent with ADL's Yes Is patient alert and oriented? Yes: currently confused Needs Assistance With Meal Prep,Home Chores / Shopping Caregiver for Another No DME Already Rented / Owned Cane Patient/Family Preference Residential Facility,Home with Home Health Comment Pending PT eval post hip relocation Barriers to Discharge No Discharge Plan Home with Home Health Transportation Arrangement Likely her neighbor friend Joanna if safe for d/c home Additional Comment Pending PT eval and recommendations Review Status In Process Please Provide Date Initial DC 01/30/24 Assessment Was Performed Next Review Type Continued Stay Review
--- NOTE | 2024-01-30 16:18 | PM.HP.1 ---
History of Present Illness History of Present Illness Date Patient Seen: 01/30/24 Time Patient Seen: 13:00 Chief complaint: Fall/Confusion Narrative: Per overnight provider, 89 years old female with a past medical history of hypertension and who lives at home by herself was brought to the emergency room status post fall with an unknown downtime from anywhere 24 hours to 36 hours before was checked in by family/friends. Was in significant pain and blood pressure was 213/86. Patient received IV pain medications in the emergency room and now drowsy. Unable to get any significant history from the patient. Most of the history has been obtained from the chart and caregivers. Further workup showed a white count of 16.5, hemoglobin of 14.6 and a platelet of 289. Sodium was 126 with a BUN of 29 with a creatinine of 1.08. AST/ALT was 187/61. Urine analysis is negative for leukocyte esterase. Urine toxicology screen is negative. Follow-up CT head and brain shows no acute process. CT cervical spine shows no significant fractures. CT chest and abdomen/pelvis showed superior dislocation of left hip arthroplasty age-indeterminate. Unable to correct the dislocation emergency room and further labs revealed a CPK of 2000. Reviewed with orthopedic surgery and recommended admission for optimizing medically before proceeding with surgery in the OR to fix the dislocation [facility] Social History household members: none Smoking Status: Never smoker alcohol intake: current Meds Home Medications and Allergies Home Medications Medication Instructions Recorded Confirmed Type estradiol 1 mg tablet 1 mg PO DAILY 01/30/24 01/30/24 History famotidine 20 mg tablet 20 mg PO DAILY 01/30/24 01/30/24 History hydrocodone 10 mg-acetaminophen 1 tab PO Q6H PRN pain 01/30/24 01/30/24 History 325 mg tablet levothyroxine 75 mcg tablet 75 mcg PO DAILY 01/30/24 01/30/24 History (Synthroid) montelukast 10 mg tablet 10 mg PO DAILY 01/30/24 01/30/24 History Allergies Allergy/AdvReac Type Severity Reaction Status Date / Time pollen extracts Allergy Verified 01/30/24 11:46 Review of Systems Review of Systems Narrative: All other systems reviewed with the patient and are negative unless otherwise stated. Exam Vital Signs (past 8 hours): - 01/30/24 11:59 01/30/24 13:40 01/30/24 13:44 Temperature 98.8 F Pulse Rate 101 H 88 85 Respiratory Rate 16 19 20 Blood Pressure 151/76 H 163/71 H 167/69 H Pulse Oximetry 100 95 98 Oxygen Delivery Method Room Air Room Air Room Air 01/30/24 13:50 01/30/24 13:54 01/30/24 14:01 Temperature Pulse Rate 93 H 89 96 H Respiratory Rate 18 16 16 Blood Pressure 183/75 H 183/75 H 183/75 H Pulse Oximetry 97 97 97 Oxygen Delivery Method Room Air Room Air Room Air 01/30/24 15:38 Temperature Pulse Rate 88 Respiratory Rate 16 Blood Pressure Pulse Oximetry 96 Oxygen Delivery Method Room Air Oxygen Delivery Method Room Air Oxygen Flow Rate 0 Narrative Exam Narrative: Patient is in no acute distress. extremities with no edema RRR no respiratory distress Objective Labs 01/29/24 18:46 01/30/24 12:30 Labs: Laboratory Results - last 24 hr 01/29/24 01/29/24 01/29/24 18:28 18:28 18:46 WBC 16.5 H RBC 4.82 Hgb 14.6 Hct 43.3 MCV 89.8 MCH 30.3 MCHC 33.8 RDW 14.8 Plt Count 289 Neut % (Auto) 87.8 H Lymph % (Auto) 3.7 L Swisher % (Auto) 8.0 Eos % (Auto) 0.0 L Baso % (Auto) 0.5 Neut # (Auto) 75377 H Lymph # (Auto) 600 L Swisher # (Auto) 1300 H Eos # (Auto) 0 Baso # (Auto) 100 PT 10.4 INR 0.9 APTT 25 L Sodium 126 L Potassium 3.5 Chloride 88 L Carbon Dioxide 28 BUN 29 H Creatinine 1.08 H Estimated GFR 49 L BUN/Creatinine Ratio 26.9 H Glucose 112 H Lactate Calcium 9.3 Total Bilirubin 1.1 AST 187 H ALT 61 H Alkaline Phosphatase 89 Ammonia Total Creatine Kinase 2632 H Total Protein 7.6 Albumin 4.5 Globulin 3.1 Albumin/Globulin Ratio 1.5 TSH 11.2 H Prolactin 9.0 Urine Color Yellow Urine Appearance Clear Urine pH 6.0 Normal Ur Specific [place] 1.015 Urine Protein 1+ H Urine Glucose (UA) Negative Urine Ketones 1+ H Urine Occult Blood Trace-intact Urine Nitrate Negative Urine Bilirubin Negative Urine Urobilinogen 0.2 Ur Leukocyte Esterase Negative Urine RBC None seen Urine WBC None seen Ur Squamous Epith Cells None seen Urine Bacteria None seen Ur Culture Indicated? Cult not indicated Vol Urine Centrifuged 10ml (spun) U Opiates 300ng/mL cut Positive H Ur Oxycodone Screen Negative Urine Methadone Screen Negative Ur Barbiturates Screen Negative U Tricyclic Antidepress Negative Ur Phencyclidine Scrn Negative Ur Amphetamines Screen Negative U Methamphetamines Scrn Negative Ur MDMA Scrn (Ecstasy) Negative U Benzodiazepines Scrn Negative Urine Cocaine Screen Negative U Marijuana (THC) Screen Negative Urine Specific [place] Normal Ethyl Alcohol < 10 Ur Creatinine Normal 01/29/24 01/29/24 01/30/24 19:08 22:45 12:30 WBC RBC Hgb Hct MCV MCH MCHC RDW Plt Count Neut % (Auto) Lymph % (Auto) Swisher % (Auto) Eos % (Auto) Baso % (Auto) Neut # (Auto) Lymph # (Auto) Swisher # (Auto) Eos # (Auto) Baso # (Auto) PT INR APTT Sodium 130 L Potassium 3.5 Chloride 101 Carbon Dioxide 21 L BUN 26 H Creatinine 0.83 Estimated GFR > 60 BUN/Creatinine Ratio 31.3 H Glucose 80 Lactate 2.5 H 2.4 H 1.7 Calcium 8.5 Total Bilirubin AST ALT Alkaline Phosphatase Ammonia < 9 L Total Creatine Kinase Total Protein Albumin Globulin Albumin/Globulin Ratio TSH Prolactin Urine Color Urine Appearance Urine pH Ur Specific [place] Urine Protein Urine Glucose (UA) Urine Ketones Urine Occult Blood Urine Nitrate Urine Bilirubin Urine Urobilinogen Ur Leukocyte Esterase Urine RBC Urine WBC Ur Squamous Epith Cells Urine Bacteria Ur Culture Indicated? Vol Urine Centrifuged U Opiates 300ng/mL cut Ur Oxycodone Screen Urine Methadone Screen Ur Barbiturates Screen U Tricyclic Antidepress Ur Phencyclidine Scrn Ur Amphetamines Screen U Methamphetamines Scrn Ur MDMA Scrn (Ecstasy) U Benzodiazepines Scrn Urine Cocaine Screen U Marijuana (THC) Screen Urine Specific [place] Ethyl Alcohol Ur Creatinine Assessment & Plan Assessment & Plan narrative: 89 years old female with a past medical history of hypertension and who lives at home by herself was brought to the emergency room status post fall with an unknown downtime from anywhere 24 hours to 36 hours before was checked in by family/friends. She was admitted with rhabdomyolysis and a left hip dislocation, now s/p closed reduction with orthopedics today. 1. Rhabdomyolysis likely secondary to fall with prolonged immobilization. IV fluids for now while trending the electrolytes/CPK levels and watch for any fluid overload. - repeat CK ordered for now. Continue NS at 75 cc per hour. 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 s/p closed reduction in OR with orthopedics. - PT / OT to start tomorrow. 3. Hypertension urgency likely further complicated by underlying pain and anxiety. Prn hydralazine, will start lisinopril 10 mg daily starting tomorrow. 4 decubitus sacral ulcer, unknown chronicity, present on admission. - continue dressing changes per nursing driven protocols. Code: Full, surrogate is patient's son DVT: Lovenox after surgery I have utilized all available immediate resources to obtain, update, or review the patient's current medications. Dispo: patient admitted under inpatient status. Unclear if will be able to discharge home or possible SNF, will have PT/OT evaluations. Additional history obtained via discussions with the overnight providerr. These discussions contributed to the creation of the above assessment and plan. I have reviewed patient's presenting documentation, labs, and imaging personally.
[2024-01-30] MEDS: ASPIRIN EC 81 MG TABLET PO (20:55)
[2024-01-30] MEDS: SODIUM CHLORIDE 0.9% FLUSH 10 ML IV (20:55)
[2024-01-30] MEDS: HYDROCODONE/ACET 5/325 TABLET 1 TAB PO (22:31)
--- NOTE | 2024-01-30 23:41 | PC.NURSE ---
Addendum entered by Jennifer Nelson R.N. 01/31/24 06:45: Had only 150cc UOP this shift Message sent via [facility] to Dr Steven informing him of UOP, IVF rate as well as that patient has an indwelling catheter in place. Original Note: Patient is oriented except to date and states she is here because of taking a medication but when reminded she had fallen she acknowledges that she is aware of that. Breath sounds CTA with RA sat of 98%. HRR w/BP of 156/73 which is improved from last night. Denied nausea. BT present and had BM on bedpan. Indwelling catheter is patent; urine is clear mirian. Is assisted to reposition q2h and legs are immobilized with abduction pillow device. Allevyn dressing to coccyx is intact with moderate amount of serosanguinous drainage. Noted that perirectal area is very reddened but blanchable. Denied pain at time of assessment but later reported 6/10 pain so was medicated by Jimmy Story RN, and is currently asleep. Wearing bilateral calf SCD's. Feet remain reddish/purple which she reports is chronic. CMS is intact bilaterally. Does have trace edema to left LE. Fall risk score is high and bed alarm is activated.
[2024-01-31] VITALS (7 sets, daily range): BP systolic 125–166; BP diastolic 61–91; PULSE 74–85; RESP 16–18; TEMP 36.1–37.2; O2SAT 95–98
[2024-01-31] MEDS: SODIUM CHLORIDE 0.9% 1,000 ML 75 ML IV (02:25)
[2024-01-31] MEDS: LEVOTHYROXINE 75 MCG TABLET PO (05:34)
[2024-01-31] MEDS: SODIUM CHLORIDE 0.9% FLUSH 10 ML IV (05:34)
[2024-01-31 06:04] LABS: Hemoglobin 11.9 g/dL (12.0-16.0)
[2024-01-31 06:12] LABS: BUN Creatinine Ratio 31.6 (6-22); Blood Urea Nitrogen 24 mg/dL (7-17); Calcium 7.9 mg/dL (8.4-10.2); Carbon Dioxide 27 mmol/L (22-32); Chloride 103 mmol/L (98-107); Estimated Glomerular Filt Rate > 60 mL/min (>60); Glucose 91 mg/dL (80-110); HEMOLYSIS < 15 (0-50); Potassium 3.4 mmol/L (3.4-5.1); Sodium 131 mmol/L (137-145)
[2024-01-31 06:21] LABS: Creatine Kinase 816 U/L (30-135)
--- NOTE | 2024-01-31 09:30 | PT.IIE ---
Current Diagnoses Unspecified dislocation of left hip, initial encounter (01/30/24) Traumatic ischemia of muscle, initial encounter (01/30/24) Surgery Performed Operation Date: 01/30/24 12:45 Actual Procedures p Closed Reduction Dislocated Hip(Left) - Rafael Herbert MD Physical Therapy Inpatient Evaluation/Re-Eval M1 PT/OT-IP Prior Functional Status Start: 01/30/24 15:24 Freq: NEEDED Status: Active Protocol: Document 01/31/24 09:30 AB (Rec: 01/31/24 14:11 [id number]) Medical Review Prior Functional Status Medical History Reviewed Yes Communication able to make needs known; with confusion Mobility and Gait pt stated taht she was modified indepednet with all mobilities and ambulation without AD indoors but uses a SPC for outdoor mobility Social History Household Members none Living Arrangements House Number of Floors (Floors) One Floor Number of Stairs To Enter/Railing? 3 steps with 1/lorenzo to enter from the garage has 4 steps without rails to enter from the front Home Environment Standard Height Toilet,Tub/ Shower Home Equipment Straight Cane,Hand Held Shower M2 PT-IP Current Condition Start: 01/30/24 15:24 Freq: NEEDED Status: Active Protocol: Document 01/31/24 09:30 AB (Rec: 01/31/24 14:11 [id number]) Physical Therapy Current Condition Current Condition Evaluation Date 01/31/24 Treatment Diagnosis s/p L hip dislocation s/p closed reduction; difficulty in walking Onset Date 01/30/24 M3 PT-IP Subjective Start: 01/30/24 15:24 Freq: NEEDED Status: Active Protocol: Document 01/31/24 09:30 AB (Rec: 01/31/24 14:11 [id number]) Subjective Physical Therapy Visit Type Type Initial Evaluation Visit Start Time 09:30 Visit Stop Time 11:50 Notes pt seen for split visits: 930 am to 940 am and 1055 to 1150am. Number of HOME HEALTH SPECIALIST Visits 0 Physical Therapy Visit Comments Patient Comments agreeable to do PT Therapy Pain Assessment Pain When Pain Assessed During Mobility Location Left Hip Scale Used pain scale not stated Pain Management Techniques Distraction,Modification of Treatment,Re-positioning, Timing of Activity with Medications M4 PT-IP Mobility and Gait Start: 01/30/24 15:24 Freq: NEEDED Status: Active Protocol: Document 01/31/24 09:30 AB (Rec: 01/31/24 14:11 AB [id number]) PT-Bed Mobility Assessment Rolling Level of Assist Maximal Assistance Supine to Sit Supine to Sit Maximum Assistance,1 Person Assistance,Head of Bed Elevated,Bedrails PT-Transfer Assessment Sit to and From Stand Sit to and from Stand Maximum Assistance,1 Person Assistance,Use of Upper Extremities Equipment Transfer Assistive Device Gait Belt,Front Wheeled Walker Orthotic/Prosthetic Devices or Brace: No Transfers Transfer Destination Chair Transfer Technique ambulated Transfer Ability Level of Assist Moderate Assistance,Maximum Assistance,1 Person Assistance ,Use of Upper Extremities Comments Mobility Comments PT eval received and EMR reviewed. per ortho MD operative note: hip abductor brace set for neutral extension, 70 deg flexion and 15 deg abduction but no order received. called ortho MD and left message on voicemail. Called ortho MD's office and spoke with staff and informed regarding PT request fo r hip brace order and to set parameters for wear times of hip brace. FANNY Barroso came in later on the morning and informed regarding orders and clarifications needed. [facility] contacted for hip brace fitting. Checked on pt and pt in bed. [facility] rep David with PT. Fitting pt with L hip abductor brace. informed pt regarding hip abductor brace, her hip precautions. post op folders provided to pt. pt requiring max A for rolling to the L for brief management and hp brace fitting/ adjustments. pt signed paper for hip brace. pt completed supine to sit max A and max cues. pt was able to sit on EOB CGA. completed sit to stand max A and max cues for hip precautions and safety. pt required one step instructions with all tasks. pt ambulated from EOB to chair using fWW mod to max A and max cues ~ 12 ft. pt agreed to sit up on the chair. positioned pt on the chair. call light and table placed within reach. obtained PLOF and home set up from pt. pt with memory issues and does not remember any of her precautions. pt requested to use the toilet after positioning on the chair . informed nurse and nurse assisted pt for toileting needs. Gait Assessment Gait Gait Assistance Required: Moderate Assistance,Maximum Assistance Distance (Feet) 12 Able to Maintain Weight Bearing Status Yes During Gait Assistive Devices Assistive Device Gait Belt,Front Wheeled Walker Orthotic/Prosthetic Devices or Brace: No Gait Deviations General Gait Pattern Antalgic,Decreased Feet Clearance Factors Limiting Gait Function Factors Limiting Gait Function Decreased Activity Tolerance, Decreased Strength,Difficulty Following Directions,Limited Range of Motion,Pain,Poor Balance,Poor Safety Awareness PT-Balance Assessment Sitting Balance and Reactions Static Sitting Balance Ability Good Dynamic Sitting Balance Ability Fair Standing Balance and Reactions Static Standing Balance Ability Poor Dynamic Standing Balance Ability Poor Device Used FWW M5 PT-IP Objective Assessments Start: 01/30/24 15:24 Freq: NEEDED Status: Active Protocol: Document 01/31/24 09:30 AB (Rec: 01/31/24 14:11 AB [id number]) Orientation Orientation/Cognition Level of Alertness Confusional State Orientation Name,Situation Language Function Ability Hard of Hearing Safety Awareness Decreased Safety Awareness Memory Description Short Term Impaired,X Ray Inspector Impaired Strength Lower Extremity Strength Assessment Left Impaired Hip 3+/5 Knee 4-/5 Muscle Tone Muscle Tone WNL Yes M6 PT-IP Treatment Start: 01/30/24 15:24 Freq: NEEDED Status: Active Protocol: Document 01/31/24 09:30 AB (Rec: 01/31/24 14:11 AB [id number]) Physical Therapy Treatment Education Education Provided Precautions,Weight Bearing Status,Post-Op Packet,Safety M7 PT-IP Assessment and Plan Start: 01/30/24 15:24 Freq: NEEDED Status: Active Protocol: Document 01/31/24 09:30 AB (Rec: 01/31/24 14:11 AB [id number]) PT Summary Assessment and Plan Potential Rehabilitation Potential Fair Status of Condition at Evaluation Evolving Summary Impairments Pain,ROM,Strength,Balance, Coordination,Sensation,Tone, Cognition,Bed Mobility, Transfers,Gait,Activity Tolerance Assessment Summary pt is an 89 y/o F s/p fall. pt with a previous L hip arthroplasty and sustained a L hip dislocation after the fall and underwent closed reduction. ortho MD ordered hip abductor brace and also pt to have anterior and posterior hip precautions but is WBAT. pt requiring mod to max A with transfer and ambulation but max cues with all tasks due to decrease safety awareness. recommending 2 person assist with nursing staff for safety. pt will require SNF rehab. Goals Bed Mobility Goal Minimal Assistance Transfer Goal Minimal Assistance,Front Wheeled Walker Gait Goal Minimal Assistance,Front Wheel Walker Gait Distance 50 Other Goals improve bed mobility, transfers, ambulation using fWW ~ 150 ft SBA up/down 3 steps SPC SBA Days to Meet Goals 10 Frequency of Treatment Frequency Of Treatment Twice a Day Other frequency or as tolerated Treatment Plan Physical Therapy Treatment Plan Bed Mobility Training,Transfer Training,Gait Training, Therapeutic Exercise,Balance Retraining,Post Op Education, Discharge Planning,Hot or Cold Pack,Neuromuscular Re-ed, Coordination Retraining,Manual Therapy Precautions Posterior Hip Precautions No Hip Flexion > 90 degrees,No Hip Internal Rotation,No Hip Adduction Anterior Hip Precautions No Hip Extension,No Hip External Rotation Brace L hip abductor brace Weight Bearing Status Weight Bearing Status Weight Bear as Tolerated Allowed Weight Bearing Amount (enter % LLE WBAT or #) (%) Recommendations To Nursing Amount of Assist Needed 2 Person Assist Discharge Recommendations PT Discharge Recommendations SNF Rehab Transportation Needs at Discharge Wheelchair/Cabulance
[2024-01-31] MEDS: lisinopriL 10 MG TABLET PO (09:57)
[2024-01-31] MEDS: FAMOTIDINE 20 MG TABLET PO (09:57)
[2024-01-31] MEDS: estradioL 1 MG TABLET PO (09:57)
[2024-01-31] MEDS: MONTELUKAST 10 MG TABLET PO (09:57)
[2024-01-31] MEDS: ASPIRIN EC 81 MG TABLET PO ×2 (09:57→21:23)
[2024-01-31] MEDS: DOCUSATE 100 MG CAPSULE PO ×2 (09:57→21:23)
--- NOTE | 2024-01-31 10:28 | DIET.CONS ---
Dietary Consultation Note Admission Date: 01/30/2024 01:10 Assessment: 89 y F admitted with rhabdomyolysis and left hip dislocation. Nutrition screened for BMI and low Jomar score. Met with pt at bedside who reports good appetite this morning, but reports at home she sometimes goes prolonged periods of time without eating d/t reduced appetite and forgetting. 1-2 years ago had colon surgery, post-op lost 30-35 lb. Does not like Ensures d/t too sweet, but wants to try protein smoothies here and other ONS from store upon d/c. Diet recall: B-cottage cheese and yogurt D-Tv dinner and salad Nutrition focused physical exam: -Severe muscle wasting: temporalis, deltoid, trapezius, pectoralis, interosseous -Severe subcutaneous fat loss: buccal, orbital, triceps Ht: 154.94 cm Wt: 43 kg BMI: 17.9 (underweight for age) UBW: 59 kg per pt (1-2 yrs ago) Last BM: 01/31/24 (01/31/24 01:19) MNA: Jomar Score: 15 Diet: 01/30/24 Dinner General (Regular) Diet Diet Modifications: Nutrition Percent Meal Consumed 100% 01/30/24 18:00 Labs: RBC 4.82 X10^6/uL (4.0-5.2) 01/29/24 18:46 Hgb 11.9 g/dL (12.0-16.0) L 01/31/24 05:50 Hct 36.0 % (36-46) 01/31/24 05:50 Creatinine 0.76 mg/dL (0.52-1.04) 01/31/24 05:50 Lactate 1.7 mmol/L (0.7-2.1) 01/30/24 12:30 Nutrition Diagnosis: Severe Chronic Protein Calorie Malnutrition r/t inadequate oral intake as evidenced by severe muscle mass loss (temporalis, deltoid, trapezius, pectoralis, interosseous), severe subcutaneous fat loss (buccal, orbital, triceps), <75% of estimated energy needs for >6 months, inability to re-gain weight loss post reported colon surgery, decreased appetite and prolonged periods of not eating d/t forgetfulness, BMI 17.9 (underweight for age) Interventions: 1. Protein/kcal smoothies daily in addition to meal 2. Increase energy/protein intake -Discussed ONS options, small freq snacks during day, adequate protein intake, high protein/high kcal handout EER: [id number] kcals (35 kcals/kg per BMI/PCM) 65-70 g protein (1.5 g/kg per PCM) Monitoring/Evaluations: po intakes Electronically Signed by: Deidra Martin 01/31/24 10:28 Clinical Dietitian [address] [id number]
--- NOTE | 2024-01-31 12:05 | CM.DPC ---
DCP Cont. Reviewed EMR and team rounds for status updates. Plan is for pt to start working with therapies today, the rhabdo is clearing and she is improving. Will monitor for PT/OT recommendations for d/c disposition.
--- NOTE | 2024-01-31 14:07 | OT.IP.EVAL ---
Current Diagnoses Unspecified dislocation of left hip, initial encounter (01/30/24) Traumatic ischemia of muscle, initial encounter (01/30/24) Surgery Performed Operation Date: 01/30/24 12:45 Actual Procedures p Closed Reduction Dislocated Hip(Left) - Rafael Herbert MD Occupational Therapy Inpatient Evaluation/Re-Eval M1 PT/OT-IP Prior Functional Status Start: 01/30/24 15:24 Freq: NEEDED Status: Active Protocol: Document 01/31/24 14:15 [facility] (Rec: 01/31/24 14:33 [facility] [id number]) Medical Review Prior Functional Status Medical History Reviewed Yes Communication able to make needs known; with confusion Mobility and Gait pt stated that she was modified independent with all mobilities and ambulation without AD indoors but uses a SPC for outdoor mobility Activities of Daily Living and IADL's Pt states she was completely independent with all ADL,IADL and drives. Social History Household Members none Living Arrangements House Number of Floors (Floors) One Floor Number of Stairs To Enter/Railing? 3 steps with 1/lorenzo to enter from the garage has 4 steps without rails to enter from the front Home Environment Standard Height Toilet,Tub/ Shower Home Equipment Straight Cane,Hand Held Shower M2 OT-IP Current Condition Start: 01/31/24 14:15 Freq: Status: Active Protocol: Document 01/31/24 14:15 [facility] (Rec: 01/31/24 14:33 [facility] [id number]) Occupational Therapy Current Condition Current Condition Evaluation Date 01/31/24 Treatment Diagnosis FAll S/P Left hip dislocations Diagnosis Onset Date 01/30/24 Post Operative Precautions Posterior Hip Precautions No Hip Flexion > 90 degrees,No Hip Internal Rotation,No Hip Adduction Anterior Hip Precautions No Hip Extension,No Hip External Rotation Other Precautions Hip abductions brace when out of bed and pillow on in bed. Weight Bearing Status Weight Bearing Status Weight Bear as Tolerated M3 OT- IP Subjective and Pain Start: 01/31/24 14:15 Freq: Status: Active Protocol: Document 01/31/24 14:15 [facility] (Rec: 01/31/24 14:33 [facility] [id number]) OT- Subjective Occupational Therapy Visit Type Type Initial Evaluation Visit Start Time 13:25 Visit Stop Time 14:07 Occupational Therapy Visit Comments Patient Comments Pt agreed to work with OT. Noted swelling and redness at IV site on right forearm, and nursing called in. Patient/Caregiver Goals To get better and go to skilled rehab. OT Pain Assessment Pain When Pain Assessed At Rest Pain Present Pain Present Denied Pain M4 OT- IP ADL's Start: 01/31/24 14:15 Freq: Status: Active Protocol: Document 01/31/24 14:15 [facility] (Rec: 01/31/24 14:33 [facility] [id number]) OT JOP-[id number] General Evaluation Self-Feeding Ability Standby Assistance Areas Needing Assistance Opening Containers Comments OT Self-Feeding Comments Set-up assist. OT ADL-Grooming Comments OT Grooming Comments NOt performed. OT ADL-Oral Care Comments Oral Care Comments NOt performed. OT ADL-Dressing General Eval Lower Body Dressing Ability Maximum Assistance,Total Assistance Areas Needing Assistance Socks,Orthosis/Prosthesis Comments OT Dressing Comments At this time pt will need assist and use of LB dressing equipment so able to follow her anterior and posterior precautions. OT ADL-Toileting General Evaluation Toileting Ability Total Assistance Comments OT Toileting Comments Leigh in place. Educated best to stand to wipe at this time to best follow her hip precautions. Pt will need assist. OT ADL-Bathing Comments OT Bathing Comments Sponge bath more appropriate at this time or use of rolling shower chair. Pt states prior would sit on the edge of the tub to wash her hair. M5 OT- IP IADL's Start: 01/31/24 14:15 Freq: Status: Active Protocol: Document 01/31/24 14:15 [facility] (Rec: 01/31/24 14:33 [facility] [id number]) OT-Instrumental Activities of Daily Living Deficits IADL Deficits Identified Deficits Home Safety Awareness Awareness of Need for Assistance at Home Good Awareness Home Safety Comments Pt is well aware that she will not be able to care for herself and after skilled rehab looking to hire assist to stay with her. M6 OT- IP Functional Cognition Start: 01/31/24 14:15 Freq: Status: Active Protocol: Document 01/31/24 14:15 [facility] (Rec: 01/31/24 14:33 [facility] [id number]) Cognitive Factors Limiting Selfcare Function Cognitive Ability Level of Alertness Alert Patient Orientation Name,Age,Place,Situation Attention Span Ability Capable of Focused Attention Ability to Follow Commands Able to Follow One Step Commands with Increased Time, Able to Follow One Step Commands with Repetition Memory Description Short Term Impaired Safety Awareness Decreased Recall of Precautions,Decreased Ability to Apply Precautions Cognitive Comments Cognitive Assessment Comments Pt having low Na still and just having surgery which may be effecting her memory at this time. Pt unable to recall her hip precautions even after multiple education at this time. Pt needing step by step commands for mobility needs. OT- Vision and Hearing OT- Hearing Assessment OT- Hearing Assessment WFL OT- Vision Assessment Visual Acuity Glasses For Reading Occular Pursuits WFL Visual Convergence WFL Visual Orellana WFL M7 OT- IP Mobility and Balance Start: 01/31/24 14:15 Freq: Status: Active Protocol: Document 01/31/24 14:15 [facility] (Rec: 01/31/24 14:33 [facility] [id number]) OT- Bed Mobility Assessment Scooting Scooting to Edge of Bed Standby Assistance OT-Transfer Assessment Sit to and From Stand Sit to and from Stand Maximum Assistance,1 Person Assistance Comments Mobility Comments Pt after cues able to scoot forwards in the recliner and needing MAX vc and MAX A x1 to stand to the FWW. Pt able to take a few steps forwards and back with MODA X1 with the FWW and MAX vc to follow her hip precautions. OT- Balance Assessment Sitting Balance and Reactions Static Sitting Balance Ability Good Dynamic Sitting Balance Ability Fair Standing Balance and Reactions Static Standing Balance Ability Poor Dynamic Standing Balance Ability Poor M8 OT- IP Objective Assessments Start: 01/31/24 14:15 Freq: Status: Active Protocol: Document 01/31/24 14:15 [facility] (Rec: 01/31/24 14:33 [facility] [id number]) OT Gross Range of Motion Upper Extremity Range of Motion Assessment Within Functional Limits OT Strength Upper Extremity Strength Assessment Within Functional Limits Comments Strength Comments WFL for age and lifestyle. M9 OT- IP Assessment and Plan Start: 01/31/24 14:15 Freq: Status: Active Protocol: Document 01/31/24 14:15 [facility] (Rec: 01/31/24 14:33 [facility] [id number]) OT Summary Assessment and Plan Potential Rehabilitation Potential Good Analytic Complexity at Evaluation Moderate Summary OT Impairments Pain,Strength,Balance, Functional Cognition, Functional Mobility,Grooming, Dressing,Toileting,Bathing, Toilet Transfers,Shower Transfers,Activity Tolerance Progress Towards Goals Slow Progress due to Medical Issues,Slow Progress due to Activity Tolerance Assessment Summary Pt MOD complexity and and main barriers decreased ability to recall her precautions which may be due to low Na, needing extensive 1-2 person assist for ADL and mobility needs at this time. Pt is also having to wear an abductor brace when out of bed. Pt will benefit from skilled rehab at this time. Pt is well aware even after skilled rehab will need assist and already thinking of hiring assist to stay with her at home. Goals Self-Feeding Goal Independent Grooming Goal Independent Dressing Goal Moderate Assistance Toileting Goal Minimal Assistance Bathing Goal Moderate Assistance Toilet Transfer Goal Standby Assistance Shower Transfer Goal Contact Guard Assistance Days to Meet Goals 25 Frequency of Treatment Frequency Of Treatment Once a Day Treatment Plan OT Treatment Plan ADL Training,Functional Cognition Training,Functional Mobility,Patient/Family Education,Discharge Planning Other Treatment Recommendations and Next Transfer to [facility] with MODA X 1 Treatment Focus with FWW. Patti ARMENTA dressing equipment. Discharge Recommendations OT Discharge Recommendations SNF Rehab Transportation Needs at Discharge Wheelchair/Cabulance
--- NOTE | 2024-01-31 14:30 | PM.PNPO.1 ---
Subjective Subjective Date Patient Seen: 01/31/24 Time Patient Seen: 14:31 Interval history: Patient states pain is mild. Otherwise without complaints. Exam Vital Signs (past 8 hours): - 01/31/24 08:00 01/31/24 09:57 01/31/24 12:44 Temperature 98.2 F 99 F Pulse Rate 79 79 79 Respiratory Rate 16 16 Blood Pressure 125/91 H 125/91 H 133/61 Pulse Oximetry 98 95 Oxygen Flow Rate 0 Oxygen Delivery Method Room Air Oxygen Flow Rate 0 Narrative Exam Narrative: 81-year-old female sitting comfortably in bedside chair in no apparent distress. Abduction brace in place. Sensation grossly intact to light touch left lower extremity. Motor functions intact distal left lower extremity. Const General: cooperative and comfortable Objective Labs 01/31/24 05:50 01/31/24 05:50 Labs: Laboratory Results - last 24 hr 01/31/24 05:50 Hgb 11.9 L Hct 36.0 Sodium 131 L Potassium 3.4 Chloride 103 Carbon Dioxide 27 BUN 24 H Creatinine 0.76 Estimated GFR > 60 BUN/Creatinine Ratio 31.6 H Glucose 91 Calcium 7.9 L Total Creatine Kinase 816 H D [facility] Social History household members: none Smoking Status: Never smoker alcohol intake: current Assessment & Plan Post-op Postoperative Procedures: Procedures Operation Date: 01/30/24 12:45 Actual Procedure Side Surgeon p Closed Reduction Dislocated Hip Left Rafael Herbert MD Postoperative day: 1 Postoperative status: doing well Postoperative plan narrative: Status post closed reduction left hip January 30, 2024. Hip abduction brace should be set to harpal from anything beyond neutral extension, 70? flexion and 15? of abduction Brace to be on when active/ambulating, no need for brace to be on in bed does not need to have the abduction pillow on in bed either. Follow up with Dr. Herbert after discharge from hospital Disposition per hospitalist.
[2024-01-31] MEDS: ALBUTEROL 2.5 MG/3 ML NEB (ADULT) INH ×2 (14:33→20:21)
--- NOTE | 2024-01-31 15:01 | P.PN_ITS ---
Subjective Subjective Interval history: 89F admitted with dislocated hip, reduced yesterday. Pain controlled today, no complaints. Was forgetful with therapies, recommended SNF over concerns for not following precautions. Exam Vital Signs (past 8 hours): - 01/31/24 08:00 01/31/24 09:57 01/31/24 12:44 Temperature 98.2 F 99 F Pulse Rate 79 79 79 Respiratory Rate 16 16 Blood Pressure 125/91 H 125/91 H 133/61 Pulse Oximetry 98 95 Oxygen Delivery Method Oxygen Flow Rate 0 01/31/24 14:33 Temperature Pulse Rate 85 Respiratory Rate 16 Blood Pressure Pulse Oximetry 98 Oxygen Delivery Method Room Air Oxygen Flow Rate Oxygen Delivery Method Room Air Oxygen Flow Rate 0 Narrative Exam Narrative: Patient is in no acute distress. extremities with no edema RRR no respiratory distress Objective Labs 01/31/24 05:50 01/31/24 05:50 Labs: Laboratory Results - last 24 hr 01/31/24 05:50 Hgb 11.9 L Hct 36.0 Sodium 131 L Potassium 3.4 Chloride 103 Carbon Dioxide 27 BUN 24 H Creatinine 0.76 Estimated GFR > 60 BUN/Creatinine Ratio 31.6 H Glucose 91 Calcium 7.9 L Total Creatine Kinase 816 H D [facility] Social History household members: none Smoking Status: Never smoker alcohol intake: current Assessment & Plan Assessment & Plan narrative: 89 years old female with a past medical history of hypertension and who lives at home by herself was brought to the emergency room status post fall with an unknown downtime from anywhere 24 hours to 36 hours before was checked in by family/friends. She was admitted with rhabdomyolysis and a left hip dislocation, now s/p closed reduction with orthopedics today. 1. Rhabdomyolysis likely secondary to fall with prolonged immobilization. IV fluids for now while trending the electrolytes/CPK levels and watch for any fluid overload. - repeat CK was 816, will recheck tomorrow. Continue NS at 75 cc per hour. Can stop trending if <500. 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 s/p closed reduction in OR with orthopedics. -PT / OT to continue 3. Hypertension - improved BP today with lisinopril initiation. Continue to follow. 4 decubitus sacral ulcer, unknown chronicity, present on admission. - continue dressing changes per nursing driven protocols. Code: Full, surrogate is patient's son DVT: Lovenox after surgery I have utilized all available immediate resources to obtain, update, or review the patient's current medications. Dispo: patient admitted under inpatient status. SNF recommended after therapy evaluations, likely ready in 1-2 days. Additional history obtained via discussions with the overnight providerr. These discussions contributed to the creation of the above assessment and plan. I have reviewed patient's presenting documentation, labs, and imaging personally.
--- NOTE | 2024-01-31 16:04 | PC.NURSE ---
Dressing on wound on coccyx changed to new Allevyn. Center area unstageable, periphery stage 2.
--- NOTE | 2024-01-31 17:06 | PT-IP ANOTE ---
checked on pt and pt refused PT. stated that the nurse if fixing her IV line and should not move at that time. checked back on pt after > 1 hour and pt in bed. pt refused PT and stated that she is just tired and wanted to rest. will f/u.
[2024-01-31] MEDS: BUDESONIDE 0.5 MG/2 ML NEB INH (20:21)
--- NOTE | 2024-01-31 21:12 | PC.WOUNDPHOT ---
Wound photos taken by JOLENE Holloway on admission. Dressed w/ allevyn. Unstageable. Coccyx Back Coccyx
[2024-01-31] MEDS: ACETAMINOPHEN 325 MG TABLET 650 MG PO (21:23)
[2024-02-01] MEDS: HYDROCODONE/ACET 5/325 TABLET 1 TAB PO (03:27)
[2024-02-01 06:00] VITALS: BP 132/74; PULSE 84; RESP 16; TEMP 36.9; O2SAT 96
[2024-02-01 06:27] LABS: Add Manual Diff / Slide Review NO; Basophils Absolute Auto 100 /uL (0-100); Basophils Percent Auto 0.5 % (0-2); Eosinophils Absolute Auto 100 /uL (0-450); Eosinophils Percent Auto 1.3 % (2-4); Hematocrit 31.8 % (36-46); Hemoglobin 10.7 g/dL (12.0-16.0); Lymphocytes Absolute Auto 1400 /uL (1100-4500); Lymphocytes Percent Auto 12.5 % (25-40); Mean Corpuscular HGB Conc 33.6 % (30-36); Mean Corpuscular Hemoglobin 30.2 PG (26-34); Mean Corpuscular Volume 89.7 fL (80-100); Monocytes Absolute Auto 800 /uL (0-900); Monocytes Percent Auto 7.5 % (3-14); Neutrophils Absolute Auto 8500 /uL (1500-7000); Neutrophils Percent Auto 78.2 % (50-75); Platelet Count 222 X10^3/uL (150-400); Red Blood Cell Count 3.54 X10^6/uL (4.0-5.2); Red Cell Distribution Width 15.7 % (11.6-14.8); White Blood Cell Count 10.9 X10^3/uL (4.5-11.0)
[2024-02-01 06:40] LABS: Creatine Kinase 435 U/L (30-135)
[2024-02-01 06:43] LABS: BUN Creatinine Ratio 30.4 (6-22); Blood Urea Nitrogen 24 mg/dL (7-17); Calcium 7.9 mg/dL (8.4-10.2); Carbon Dioxide 24 mmol/L (22-32); Chloride 102 mmol/L (98-107); Estimated Glomerular Filt Rate > 60 mL/min (>60); Glucose 107 mg/dL (80-110); HEMOLYSIS < 15 (0-50); Potassium 3.6 mmol/L (3.4-5.1); Sodium 129 mmol/L (137-145)
[2024-02-01] MEDS: ALBUTEROL 2.5 MG/3 ML NEB (ADULT) INH ×3 (07:31→14:56)
[2024-02-01] MEDS: BUDESONIDE 0.5 MG/2 ML NEB INH (07:32)
[2024-02-01 08:00] VITALS: BP 171/68; PULSE 77; RESP 16; TEMP 36.6; O2SAT 95
--- NOTE | 2024-02-01 08:29 | PM.PNPO.1 ---
Subjective Subjective Date Patient Seen: 02/01/24 Time Patient Seen: 08:29 Interval history: Pt is mildly confused. When I ask her about her original hip replacement surgery, she tells me it was 5 years ago [place] the [place] [address]. This story is consistent with what she told Dr Herbert 2 days ago when he asked a similar question. When I try to get her to clarify, she does tell me that it was somewhere in [place], and that a friend of hers arranged for rehab at a facility in [place]; this reference is also consistent in review of CM notes. Exam Vital Signs (past 8 hours): - 02/01/24 06:00 02/01/24 07:33 Temperature 98.5 F Pulse Rate 84 Respiratory Rate 16 Blood Pressure 132/74 Pulse Oximetry 96 Oxygen Delivery Method Room Air Oxygen Flow Rate 0 Oxygen Delivery Method Room Air Oxygen Flow Rate 0 Narrative Exam Narrative: 5/5 strength in hip flexors, quadriceps, hamstrings, DF, PF, EHL on right. Sensation to light touch intact throughout RLE. Calf soft and compressible. Objective Labs 02/01/24 06:18 02/01/24 06:18 Labs: Laboratory Results - last 24 hr 02/01/24 06:18 WBC 10.9 RBC 3.54 L Hgb 10.7 L Hct 31.8 L MCV 89.7 MCH 30.2 MCHC 33.6 RDW 15.7 H Plt Count 222 Neut % (Auto) 78.2 H Lymph % (Auto) 12.5 L [place] % (Auto) 7.5 Eos % (Auto) 1.3 L Baso % (Auto) 0.5 Neut # (Auto) 8500 H Lymph # (Auto) 1400 [place] # (Auto) 800 Eos # (Auto) 100 Baso # (Auto) 100 Sodium 129 L Potassium 3.6 Chloride 102 Carbon Dioxide 24 BUN 24 H Creatinine 0.79 Estimated GFR > 60 BUN/Creatinine Ratio 30.4 H Glucose 107 Calcium 7.9 L Total Creatine Kinase 435 H D PFSH Social History household members: none Smoking Status: Never smoker alcohol intake: current Assessment & Plan Post-op Assessment and plan (1) 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 WBAT to RLE. She needs a hip abduction brace to wear when walking. This should be set to block her from anything beyond neutral extension, 70? of flexion, and 15? of abduction. Continue hip abduction pillow when in bed. Can f/u w/ Dr Almazant to discuss hip revision options/plan to prevent further dislocations, if desired. This can be in 3-4 weeks, or whenever is convenient for caregivers. Continue ASA 81mg BID x 4 weeks for VTE prophylaxis. Disposition, pain management per hospitalist service. Postoperative Procedures: Procedures Operation Date: 01/30/24 12:45 Actual Procedure Side Surgeon p Closed Reduction Dislocated Hip Left Rafael Herbert MD Postoperative day: 2
[2024-02-01] MEDS: LEVOTHYROXINE 75 MCG TABLET PO (08:51)
[2024-02-01] MEDS: estradioL 1 MG TABLET PO (08:51)
[2024-02-01] MEDS: ASPIRIN EC 81 MG TABLET PO ×2 (08:51→21:35)
[2024-02-01] MEDS: MONTELUKAST 10 MG TABLET PO (08:51)
[2024-02-01] MEDS: FAMOTIDINE 20 MG TABLET PO (08:52)
[2024-02-01 08:55] VITALS: BP 171/68; PULSE 79
--- NOTE | 2024-02-01 10:27 | PT.IPTN ---
Current Diagnoses Unspecified dislocation of left hip, initial encounter (01/30/24) Traumatic ischemia of muscle, initial encounter (01/30/24) Other specified postprocedural states (01/30/24) Surgery Performed Operation Date: 01/30/24 12:45 Actual Procedures p Closed Reduction Dislocated Hip(Left) - Rafael Herbert MD Physical Therapy Treatment Note M2 PT-IP Current Condition Start: 01/30/24 15:24 Freq: NEEDED Status: Active Protocol: Document 01/31/24 09:30 AB (Rec: 01/31/24 14:11 AB [id number]) Physical Therapy Current Condition Current Condition Evaluation Date 01/31/24 Treatment Diagnosis s/p L hip dislocation s/p closed reduction; difficulty in walking Onset Date 01/30/24 M3 PT-IP Subjective Start: 01/30/24 15:24 Freq: NEEDED Status: Active Protocol: Document 02/01/24 10:50 TS (Rec: 02/01/24 11:15 TS [id number]) Subjective Physical Therapy Visit Type Type Treatment Note Visit Start Time 10:27 Visit Stop Time 10:50 Number of CIRCUS ROUSTABOUT Visits 1 Physical Therapy Visit Comments Patient Comments Pt found resting in chair, she has some confusion, reports ABD brace is uncomfortable, she is agreeable to PT. Therapy Pain Assessment Pain When Pain Assessed At Rest Pain Present Pain Present Pain Reported M4 PT-IP Mobility and Gait Start: 01/30/24 15:24 Freq: NEEDED Status: Active Protocol: Document 02/01/24 10:50 TS (Rec: 02/01/24 11:15 TS [id number]) PT-Transfer Assessment Sit to and From Stand Sit to and from Stand Moderate Assistance,1 Person Assistance,Use of Upper Extremities Equipment Transfer Assistive Device Gait Belt,Front Wheeled Walker Orthotic/Prosthetic Devices or Brace: No Comments Mobility Comments STS with FWW ModA, pt required cues for pushing from arms of chair. She ambulated in the room ~2x20'Chyna with use of FWW. Pt ambulates with slow step to gait. Pt was left back in chair, all needs met. Gait Assessment Gait Gait Assistance Required: Minimum Assistance Distance (Feet) 40 Able to Maintain Weight Bearing Status Yes During Gait Assistive Devices Assistive Device Gait Belt,Front Wheeled Walker Orthotic/Prosthetic Devices or Brace: No Gait Deviations General Gait Pattern Antalgic,Decreased Feet Clearance Factors Limiting Gait Function Factors Limiting Gait Function Decreased Activity Tolerance, Decreased Strength,Difficulty Following Directions,Limited Range of Motion,Pain,Poor Balance,Poor Safety Awareness PT-Balance Assessment Sitting Balance and Reactions Static Sitting Balance Ability Good Dynamic Sitting Balance Ability Fair Standing Balance and Reactions Static Standing Balance Ability Fair Dynamic Standing Balance Ability Fair Device Used FWW M5 PT-IP Objective Assessments Start: 01/30/24 15:24 Freq: NEEDED Status: Active Protocol: Document 01/31/24 09:30 AB (Rec: 01/31/24 14:11 AB [id number]) Orientation Orientation/Cognition Level of Alertness Confusional State Orientation Name,Situation Language Function Ability Hard of Hearing Safety Awareness Decreased Safety Awareness Memory Description Short Term Impaired,Senior Care Impaired Strength Lower Extremity Strength Assessment Left Impaired Hip 3+/5 Knee 4-/5 Muscle Tone Muscle Tone WNL Yes M6 PT-IP Treatment Start: 01/30/24 15:24 Freq: NEEDED Status: Active Protocol: Document 02/01/24 10:50 TS (Rec: 02/01/24 11:15 TS [id number]) Physical Therapy Treatment Education Education Provided Precautions,Weight Bearing Status,Post-Op Packet,Safety M7 PT-IP Assessment and Plan Start: 01/30/24 15:24 Freq: NEEDED Status: Active Protocol: Document 02/01/24 10:50 TS (Rec: 02/01/24 11:15 TS [id number]) PT Summary Assessment and Plan Potential Rehabilitation Potential Fair Summary Impairments Pain,ROM,Strength,Balance, Coordination,Sensation,Tone, Cognition,Bed Mobility, Transfers,Gait,Activity Tolerance Progress Towards Goals Slow Progress due to Pain,Slow Progress due to Activity Tolerance Assessment Summary Donya made some progress with her mobility but continues to be limited by pain and poor activity tolerance. She requires ModA for STS from chair with cues for sequencing . She progressed her gait to 2x20'Chyna with FWW. She is uncomfortable in the brace, pt was educated on the importance of having it on. PT continues to recommend SNF. Goals Bed Mobility Goal Minimal Assistance Transfer Goal Minimal Assistance,Front Wheeled Walker Gait Goal Minimal Assistance,Front Wheel Walker Gait Distance 50 Other Goals improve bed mobility, transfers, ambulation using fWW ~ 150 ft SBA up/down 3 steps SPC SBA Days to Meet Goals 10 Frequency of Treatment Frequency Of Treatment Twice a Day Other frequency or as tolerated Treatment Plan Physical Therapy Treatment Plan Bed Mobility Training,Transfer Training,Gait Training, Therapeutic Exercise,Balance Retraining,Post Op Education, Discharge Planning,Hot or Cold Pack,Neuromuscular Re-ed, Coordination Retraining,Manual Therapy Precautions Posterior Hip Precautions No Hip Flexion > 90 degrees,No Hip Internal Rotation,No Hip Adduction Anterior Hip Precautions No Hip Extension,No Hip External Rotation Brace L hip abductor brace Weight Bearing Status Weight Bearing Status Weight Bear as Tolerated Allowed Weight Bearing Amount (enter % LLE WBAT or #) (%) Recommendations To Nursing Amount of Assist Needed 1 Person Assist Discharge Recommendations PT Discharge Recommendations SNF Rehab Transportation Needs at Discharge Wheelchair/Cabulance
--- NOTE | 2024-02-01 10:41 | PM.PN.1 ---
Subjective Subjective Interval history: Sitting in a chair, minimal hip pain. She declined her blood pressure pills today because they make her dizzy. Exam Vital Signs (past 8 hours): - 02/01/24 06:00 02/01/24 07:33 02/01/24 08:00 Temperature 98.5 F 97.8 F Pulse Rate 84 77 Respiratory Rate 16 16 Blood Pressure 132/74 171/68 H Pulse Oximetry 96 95 Oxygen Delivery Method Room Air Oxygen Flow Rate 0 0 02/01/24 08:55 Temperature Pulse Rate 79 Respiratory Rate Blood Pressure 171/68 H Pulse Oximetry Oxygen Delivery Method Oxygen Flow Rate Oxygen Delivery Method Room Air Oxygen Flow Rate 0 Narrative Exam Narrative: NAD, alert and oriented. Fluent speech. Lungs are clear, normal rate and effort. Heart is regular, no murmur gallop or rub. Abdomen is soft, non distended. Extremities are free of edema. Objective Labs 02/01/24 06:18 02/01/24 06:18 Labs: Laboratory Results - last 24 hr 02/01/24 06:18 WBC 10.9 RBC 3.54 L Hgb 10.7 L Hct 31.8 L MCV 89.7 MCH 30.2 MCHC 33.6 RDW 15.7 H Plt Count 222 Neut % (Auto) 78.2 H Lymph % (Auto) 12.5 L [place] % (Auto) 7.5 Eos % (Auto) 1.3 L Baso % (Auto) 0.5 Neut # (Auto) 8500 H Lymph # (Auto) 1400 [place] # (Auto) 800 Eos # (Auto) 100 Baso # (Auto) 100 Sodium 129 L Potassium 3.6 Chloride 102 Carbon Dioxide 24 BUN 24 H Creatinine 0.79 Estimated GFR > 60 BUN/Creatinine Ratio 30.4 H Glucose 107 Calcium 7.9 L Total Creatine Kinase 435 H D PFSH Social History household members: none Smoking Status: Never smoker alcohol intake: current Assessment & Plan Assessment & Plan narrative: 1. Rhabdomyolysis likely secondary to fall with prolonged immobilization. Present on admission and improved. - repeat CK was 816, will recheck tomorrow. Continue NS at 75 cc per hour. Can stop trending if <500. 2. 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 Present on admission and improved. s/p closed reduction in OR with orthopedics. -PT / OT to continue 3. Hypertension, present on admission and active. -encourage medications. Continue to follow. 4. Decubitus sacral ulcer, unknown chronicity, present on admission and active. - continue dressing changes per nursing driven protocols. Dispo: -needs long-term facility. -son is flying in from [place] today to help encourage patient. Code: Full, surrogate is patient's son DVT: Lovenox after surgery
--- NOTE | 2024-02-01 13:31 | CM.DPC ---
DCP Cont. Reviewed EMR and team rounds for status updates. Per PT/OT, SNF is rec. Called son, he will discuss her facility preference today, and he will be in town here tomorrow. He has a SNF in [place] that he likes, I already told him that would be a BLS transport and it will be private pay, due to the distance. Confirm facility and send referral Th02/01.
[2024-02-01] MEDS: HYDROCODONE/ACET 10/325 TABLET 1 TAB PO ×2 (13:52→21:36)
--- NOTE | 2024-02-01 15:46 | PT-IP ANOTE ---
Pt was left to rest in bed. PT will check on pt tomorrow.
--- NOTE | 2024-02-01 15:47 | OT.IPNOTE ---
Pt asleep, to check on pt tomorrow for OT.
[2024-02-01 19:46] VITALS: BP 146/107; PULSE 75; RESP 16; TEMP 37.2; O2SAT 97
[2024-02-01] MEDS: DOCUSATE 100 MG CAPSULE PO (21:34)
[2024-02-02] MEDS: LEVOTHYROXINE 75 MCG TABLET PO (06:15)
[2024-02-02] MEDS: HYDROCODONE/ACET 5/325 TABLET 1 TAB PO ×2 (06:15→20:27)
[2024-02-02 06:19] LABS: Add Manual Diff / Slide Review NO; Basophils Absolute Auto 100 /uL (0-100); Basophils Percent Auto 0.6 % (0-2); Eosinophils Absolute Auto 500 /uL (0-450); Eosinophils Percent Auto 5.4 % (2-4); Hematocrit 32.7 % (36-46); Hemoglobin 10.9 g/dL (12.0-16.0); Lymphocytes Absolute Auto 1600 /uL (1100-4500); Lymphocytes Percent Auto 16.6 % (25-40); Mean Corpuscular HGB Conc 33.3 % (30-36); Mean Corpuscular Volume 90.1 fL (80-100); Monocytes Absolute Auto 700 /uL (0-900); Monocytes Percent Auto 7.7 % (3-14); Neutrophils Absolute Auto 6700 /uL (1500-7000); Neutrophils Percent Auto 69.7 % (50-75); Platelet Count 251 X10^3/uL (150-400); Red Blood Cell Count 3.62 X10^6/uL (4.0-5.2); White Blood Cell Count 9.6 X10^3/uL (4.5-11.0)
[2024-02-02 06:38] LABS: BUN Creatinine Ratio 27.7 (6-22); Blood Urea Nitrogen 23 mg/dL (7-17); Calcium 8.1 mg/dL (8.4-10.2); Carbon Dioxide 24 mmol/L (22-32); Chloride 103 mmol/L (98-107); Estimated Glomerular Filt Rate > 60 mL/min (>60); Glucose 88 mg/dL (80-110); HEMOLYSIS 15 (0-50); Potassium 4.2 mmol/L (3.4-5.1); Sodium 129 mmol/L (137-145)
[2024-02-02 08:00] VITALS: BP 165/78; PULSE 75; RESP 16; TEMP 37.3; O2SAT 93
[2024-02-02] MEDS: FAMOTIDINE 20 MG TABLET PO (08:21)
[2024-02-02] MEDS: estradioL 1 MG TABLET PO (08:21)
[2024-02-02] MEDS: ASPIRIN EC 81 MG TABLET PO ×2 (08:21→20:27)
[2024-02-02] MEDS: DOCUSATE 100 MG CAPSULE PO ×2 (08:24→20:27)
[2024-02-02] MEDS: MONTELUKAST 10 MG TABLET PO (08:32)
[2024-02-02 08:33] VITALS: BP 165/78; PULSE 75
[2024-02-02] MEDS: lisinopriL 10 MG TABLET PO (08:33)
--- NOTE | 2024-02-02 09:16 | CM.DPNOTE ---
Addendum entered by CARLITOS Conley 02/03/24 11:05: ADD: Referral sent to [facility] P [phone] F [phone] per son Mario's request. Placed call; according to Brook at the [facility] publishing [facility], there will not be anyone in admissions until Monday 02/05. Email sent to Julia at [facility] asking of she had reviewed this referral. According to Dr Beasley, patient is not medically ready for discharge at this time. CM team following closely Original Note: DCP Cont Reviewed chart. Placed call to son Mario. Patient is now POD #3 from reduction. Discussed need for SNF choices and Mario agreeable to referral being sent to [facility] today. Family touring a SNF in [place] that patient had been at in the past. Emailed Julia/[facility] this patient's referral for review. PASRR completed. MAURA
[2024-02-02] MEDS: ALBUTEROL 2.5 MG/3 ML NEB (ADULT) INH (11:15)
[2024-02-02 11:16] VITALS: PULSE 67; RESP 16; O2SAT 94
[2024-02-02] MEDS: BUDESONIDE 0.5 MG/2 ML NEB INH (11:16)
--- NOTE | 2024-02-02 11:45 | OT.IP.TRT ---
Current Diagnoses Unspecified dislocation of left hip, initial encounter (01/30/24) Traumatic ischemia of muscle, initial encounter (01/30/24) Other specified postprocedural states (01/30/24) Surgery Performed Operation Date: 01/30/24 12:45 Actual Procedures p Closed Reduction Dislocated Hip(Left) - Rafael Herbert MD Occupational Therapy Treatment Note M2 OT-IP Current Condition Start: 01/31/24 14:15 Freq: Status: Active Protocol: Document 01/31/24 14:15 [facility] (Rec: 01/31/24 14:33 [facility] [id number]) Occupational Therapy Current Condition Current Condition Evaluation Date 01/31/24 Treatment Diagnosis FAll S/P Left hip dislocations Diagnosis Onset Date 01/30/24 Post Operative Precautions Posterior Hip Precautions No Hip Flexion > 90 degrees,No Hip Internal Rotation,No Hip Adduction Anterior Hip Precautions No Hip Extension,No Hip External Rotation Other Precautions Hip abductions brace when out of bed and pillow on in bed. Weight Bearing Status Weight Bearing Status Weight Bear as Tolerated M3 OT- IP Subjective and Pain Start: 01/31/24 14:15 Freq: Status: Active Protocol: Document 02/02/24 12:16 [facility] (Rec: 02/02/24 12:24 [facility] [id number]) OT- Subjective Occupational Therapy Visit Type Type Treatment Note Visit Start Time 11:45 Visit Stop Time 12:10 Occupational Therapy Visit Comments Patient Comments Pt not wanting to get up at this time as not wanting to wear the brace due to being uncomfortable and having sciatica pain. Pt agreed to do cognitive assessment. To notify pt's nurse of refusal to wear the brace. Able to let pt now that pt has doctors order to have the brace on when up. Patient/Caregiver Goals To go home. OT Pain Assessment Pain When Pain Assessed At Rest Pain Present Pain Present Pain Reported M4 OT- IP ADL's Start: 01/31/24 14:15 Freq: Status: Active Protocol: Document 01/31/24 14:15 [facility] (Rec: 01/31/24 14:33 [facility] [id number]) OT ZUL-Odkn-Mvbazhb General Evaluation Self-Feeding Ability Standby Assistance Areas Needing Assistance Opening Containers Comments OT Self-Feeding Comments Set-up assist. OT ADL-Grooming Comments OT Grooming Comments NOt performed. OT ADL-Oral Care Comments Oral Care Comments NOt performed. OT ADL-Dressing General Eval Lower Body Dressing Ability Maximum Assistance,Total Assistance Areas Needing Assistance Socks,Orthosis/Prosthesis Comments OT Dressing Comments At this time pt will need assist and use of LB dressing equipment so able to follow her anterior and posterior precautions. OT ADL-Toileting General Evaluation Toileting Ability Total Assistance Comments OT Toileting Comments Leigh in place. Educated best to stand to wipe at this time to best follow her hip precautions. Pt will need assist. OT ADL-Bathing Comments OT Bathing Comments Sponge bath more appropriate at this time or use of rolling shower chair. Pt states prior would just sit on the edge of the tub to wash her hair. M5 OT- IP IADL's Start: 01/31/24 14:15 Freq: Status: Active Protocol: Document 01/31/24 14:15 [facility] (Rec: 01/31/24 14:33 [facility] [id number]) OT-Instrumental Activities of Daily Living Deficits IADL Deficits Identified Deficits Home Safety Awareness Awareness of Need for Assistance at Home Good Awareness Home Safety Comments Pt is well aware that she will not be able to care for herself and after skilled rehab looking to hire assist to stay with her. M6 OT- IP Functional Cognition Start: 01/31/24 14:15 Freq: Status: Active Protocol: Document 02/02/24 12:16 [facility] (Rec: 02/02/24 12:24 [facility] [id number]) Cognitive Factors Limiting Selfcare Function Cognitive Ability Level of Alertness Alert Patient Orientation Name,Age,Birthday,Month,Date, Year,Day of Week,Place, Situation Attention Span Ability Capable of Focused Attention, Capable of Sustained Attention Ability to Follow Commands Able to Follow One Step Commands Memory Description Short Term Impaired Safety Awareness Decreased Recall of Precautions,Decreased Ability to Apply Precautions, Underestimates Need for Assistance Problem Solving Ability Needs Assist to Identify Solutions Cognitive Tests SLUMS 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 Pt able to recall 4/5 objects after time passed, not able to draw the hour hands of the clock correctly after time given, and able to answer 3/4 questions right after paragraph read. Cognitive Comments Cognitive Assessment Comments Pt able to answer all home safety questions with increased time. Pt is insistent that she does not want to wear the brace and that she will be fine without as has been independent prior. Pt however not able to recall that she has anterior and posterior hip precautions to follow. Even after education still not able to recall her anterior and posterior precautions. Pt having low Na number which may be affecting her memory for new learning of her hip precautions. M7 OT- IP Mobility and Balance Start: 01/31/24 14:15 Freq: Status: Active Protocol: Document 01/31/24 14:15 [facility] (Rec: 01/31/24 14:33 [facility] [id number]) OT- Bed Mobility Assessment Scooting Scooting to Edge of Bed Standby Assistance OT-Transfer Assessment Sit to and From Stand Sit to and from Stand Maximum Assistance,1 Person Assistance Comments Mobility Comments Pt after cues able to scoot forwards in the recliner and needing MAX vc and MAX A x1 to stand to the FWW. Pt able to take a few steps forwards and back with MODA X1 with the FWW and MAX vc to follow her hip precautions. OT- Balance Assessment Sitting Balance and Reactions Static Sitting Balance Ability Good Dynamic Sitting Balance Ability Fair Standing Balance and Reactions Static Standing Balance Ability Poor Dynamic Standing Balance Ability Poor M8 OT- IP Objective Assessments Start: 01/31/24 14:15 Freq: Status: Active Protocol: Document 01/31/24 14:15 [facility] (Rec: 01/31/24 14:33 [facility] [id number]) OT Gross Range of Motion Upper Extremity Range of Motion Assessment Within Functional Limits OT Strength Upper Extremity Strength Assessment Within Functional Limits Comments Strength Comments WFL for age and lifestyle. M9 OT- IP Assessment and Plan Start: 01/31/24 14:15 Freq: Status: Active Protocol: Document 02/02/24 12:16 [facility] (Rec: 02/02/24 12:24 [facility] [id number]) OT Summary Assessment and Plan Potential Rehabilitation Potential Good Analytic Complexity at Evaluation Moderate Summary OT Impairments Pain,Strength,Balance, Functional Cognition, Functional Mobility,Grooming, Dressing,Toileting,Bathing, Toilet Transfers,Shower Transfers,Activity Tolerance Progress Towards Goals Slow Progress due to Pain,Slow Progress due to Medical Issues,Slow Progress due to Activity Tolerance Assessment Summary Pt is resistant to wear her abductor brace at this time due to pain and discomfort to wear the brace- to let nursing know. Pt still not able to recall her hip precautions even after educations. Pt will benefit from skilled rehab when medically stable. Goals Self-Feeding Goal Independent Grooming Goal Independent Dressing Goal Moderate Assistance Toileting Goal Minimal Assistance Bathing Goal Moderate Assistance Toilet Transfer Goal Standby Assistance Shower Transfer Goal Contact Guard Assistance Days to Meet Goals 25 Frequency of Treatment Frequency Of Treatment Once a Day Treatment Plan OT Treatment Plan ADL Training,Functional Cognition Training,Functional Mobility,Patient/Family Education,Discharge Planning Other Treatment Recommendations and Next Pt to recall her hip Treatment Focus precautions 50% of the time. Discharge Recommendations OT Discharge Recommendations SNF Rehab Transportation Needs at Discharge Wheelchair/Cabulance
--- NOTE | 2024-02-02 11:56 | PT-IP ANOTE ---
After many attempts to convince pt to wear Hip ABD brace she continues to refuse to wear it for mobility. She reports it is too uncomfortable for her tender areas. PT will check on pt tomorrow.
--- NOTE | 2024-02-02 12:00 | PM.PN.1 ---
Subjective Subjective Date Patient Seen: 02/02/24 Time Patient Seen: 08:40 Interval history: The patient is sitting up in bed, eating breakfast. She reports no pain at this point. She was eating and drinking poorly though is starting to sit up and eat breakfast. Exam Vital Signs (past 8 hours): - 02/02/24 08:00 02/02/24 08:33 02/02/24 11:16 Temperature 99.1 F Pulse Rate 75 75 67 Respiratory Rate 16 16 Blood Pressure 165/78 H 165/78 H Pulse Oximetry 93 94 Oxygen Delivery Method Room Air Oxygen Delivery Method Room Air Oxygen Flow Rate 0 Narrative Exam Narrative: NAD, alert and oriented. Fluent speech. Lungs are clear, normal rate and effort. Heart is regular, no murmur gallop or rub. Abdomen is soft, non distended. Extremities are free of edema. hip wedge in place. Objective Labs 02/02/24 06:13 02/02/24 06:13 Labs: Laboratory Results - last 24 hr 02/02/24 06:13 WBC 9.6 RBC 3.62 L Hgb 10.9 L Hct 32.7 L MCV 90.1 MCH 30.0 MCHC 33.3 RDW 16.0 H Plt Count 251 Neut % (Auto) 69.7 Lymph % (Auto) 16.6 L [place] % (Auto) 7.7 Eos % (Auto) 5.4 H Baso % (Auto) 0.6 Neut # (Auto) 6700 Lymph # (Auto) 1600 [place] # (Auto) 700 Eos # (Auto) 500 H Baso # (Auto) 100 Sodium 129 L Potassium 4.2 Chloride 103 Carbon Dioxide 24 BUN 23 H Creatinine 0.83 Estimated GFR > 60 BUN/Creatinine Ratio 27.7 H Glucose 88 Calcium 8.1 L [facility] Social History household members: none Smoking Status: Never smoker alcohol intake: current Assessment & Plan Assessment & Plan narrative: 1. Rhabdomyolysis likely secondary to fall with prolonged immobilization. Present on admission and improved. - repeat CK was 435 yesterday. IV fluids stopped yesterday. Encourage oral intake. 2. 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 Present on admission and improved. s/p closed reduction in OR with orthopedics 01/30/2024. -PT / OT to continue 3. Hypertension, present on admission and active. -mildly elevated but adequate control. Continue current medications. 4. Decubitus sacral ulcer, unknown chronicity, present on admission and active. - continue dressing changes per nursing driven protocols. Dispo: -anticipate long term facility. -son is in from [place] to help encourage patient. Code: Full, surrogate is patient's son DVT prophylaxis: Lovenox IH PROFEE Charge codes Subsequent inpatient/observation care: 97289
--- NOTE | 2024-02-02 13:10 | PM.PNPO.1 ---
Subjective Subjective Date Patient Seen: 02/02/24 Time Patient Seen: 10:45 Interval history: Pt sleeping, awakens easilty to voice. On my visit yesterday, I thought she was a bit confused, but today she appears to be totally coherent. She has her hip abduction pillow place, and her brace is in the room. I asked her how she normally sleeps; if she's on her side or if she moves around a lot. She says she's normally a back sleeper and doesn't move much. I told her if this is the case, we can dispense with the abduction, pillow, but she says she really likes it. She does not like the brace. She is quite petite and the plastic at the midportion of the brace rubs against her spinous processes and causes a lot of pain. Exam Vital Signs (past 8 hours): - 02/02/24 08:00 02/02/24 08:33 02/02/24 11:16 Temperature 99.1 F Pulse Rate 75 75 67 Respiratory Rate 16 16 Blood Pressure 165/78 H 165/78 H Pulse Oximetry 93 94 Oxygen Delivery Method Room Air Oxygen Delivery Method Room Air Oxygen Flow Rate 0 Narrative Exam Narrative: 5/5 hip flexors, quadriceps, hamstrings, DF, PF, EHL on right. Sensation to light touch intact throughout RLE, calf soft and compressible. Objective Labs 02/02/24 06:13 02/02/24 06:13 Labs: Laboratory Results - last 24 hr 02/02/24 06:13 WBC 9.6 RBC 3.62 L Hgb 10.9 L Hct 32.7 L MCV 90.1 MCH 30.0 MCHC 33.3 RDW 16.0 H Plt Count 251 Neut % (Auto) 69.7 Lymph % (Auto) 16.6 L [place] % (Auto) 7.7 Eos % (Auto) 5.4 H Baso % (Auto) 0.6 Neut # (Auto) 6700 Lymph # (Auto) 1600 [place] # (Auto) 700 Eos # (Auto) 500 H Baso # (Auto) 100 Sodium 129 L Potassium 4.2 Chloride 103 Carbon Dioxide 24 BUN 23 H Creatinine 0.83 Estimated GFR > 60 BUN/Creatinine Ratio 27.7 H Glucose 88 Calcium 8.1 L PFSH Social History household members: none Smoking Status: Never smoker alcohol intake: current Assessment & Plan Post-op Assessment and plan (1) 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 WBAT to RLE. She needs a hip abduction brace to wear when walking. This should be set to block her from anything beyond neutral extension, 70? of flexion, and 15? of abduction. It needs to be well-padded circumfrentially about the waist d/t her small frame. I would recommend wrapping a towel folded lengthwise around her waist or perhaps cutting off the leg of a thick pair of sweatpants to help pad all bony prominences. 2) Continue hip abduction pillow when in bed. If she is not a side sleeper, she can discontinue use of the pillow. 3) Can f/u w/ Dr Herbert to discuss hip revision options/plan to prevent further dislocations, if desired. This can be in 3-4 weeks, or whenever is convenient for caregivers. Based on CM note, she may go to [facility] or a facility in [place] where she has been in the past. 4) Continue ASA 81mg BID x 4 weeks for VTE prophylaxis. 5) Disposition, pain management per hospitalist service. Postoperative Procedures: Procedures Operation Date: 01/30/24 12:45 Actual Procedure Side Surgeon p Closed Reduction Dislocated Hip Left Rafael Herbert MD Postoperative day: 3
[2024-02-02 19:56] VITALS: BP 155/53; PULSE 72; RESP 17; TEMP 36.3; O2SAT 98
[2024-02-03] VITALS (7 sets, daily range): BP systolic 133–175; BP diastolic 57–82; PULSE 61–84; RESP 16–20; TEMP 36.1–37.6; O2SAT 93–98
[2024-02-03 06:17] LABS: Add Manual Diff / Slide Review NO; Basophils Absolute Auto 0 /uL (0-100); Basophils Percent Auto 0.6 % (0-2); Eosinophils Absolute Auto 500 /uL (0-450); Eosinophils Percent Auto 5.3 % (2-4); Hematocrit 34.9 % (36-46); Hemoglobin 11.7 g/dL (12.0-16.0); Lymphocytes Absolute Auto 1500 /uL (1100-4500); Lymphocytes Percent Auto 16.6 % (25-40); Mean Corpuscular HGB Conc 33.4 % (30-36); Mean Corpuscular Hemoglobin 29.9 PG (26-34); Mean Corpuscular Volume 89.4 fL (80-100); Monocytes Absolute Auto 700 /uL (0-900); Neutrophils Absolute Auto 6200 /uL (1500-7000); Neutrophils Percent Auto 69.5 % (50-75); Platelet Count 261 X10^3/uL (150-400); Red Blood Cell Count 3.91 X10^6/uL (4.0-5.2); White Blood Cell Count 8.9 X10^3/uL (4.5-11.0)
[2024-02-03 06:28] LABS: BUN Creatinine Ratio 29.1 (6-22); Blood Urea Nitrogen 23 mg/dL (7-17); Calcium 8.4 mg/dL (8.4-10.2); Carbon Dioxide 27 mmol/L (22-32); Chloride 103 mmol/L (98-107); Estimated Glomerular Filt Rate > 60 mL/min (>60); Glucose 87 mg/dL (80-110); HEMOLYSIS < 15 (0-50); Potassium 4.4 mmol/L (3.4-5.1); Sodium 131 mmol/L (137-145)
[2024-02-03] MEDS: LEVOTHYROXINE 75 MCG TABLET PO (06:51)
--- NOTE | 2024-02-03 07:53 | RT ---
Patient has been refusing nebulizer treatments. Per Eval and Treat order, scheduled nebs discontinued at this time.
[2024-02-03] MEDS: lisinopriL 10 MG TABLET PO (08:55)
[2024-02-03] MEDS: ASPIRIN EC 81 MG TABLET PO ×2 (08:56→20:07)
[2024-02-03] MEDS: DOCUSATE 100 MG CAPSULE PO ×2 (08:56→20:07)
[2024-02-03] MEDS: HYDROCODONE/ACET 5/325 TABLET 1 TAB PO (08:56)
[2024-02-03] MEDS: MONTELUKAST 10 MG TABLET PO (08:56)
[2024-02-03] MEDS: FAMOTIDINE 20 MG TABLET PO (08:56)
[2024-02-03] MEDS: estradioL 1 MG TABLET PO (08:56)
--- NOTE | 2024-02-03 10:41 | DIET.CONS2 ---
Dietary Inpatient Consultation Note Admission Date: 01/30/2024 01:10 Nutrition f/u. Met with pt at bedside, who reports making efforts to intake food at meal times despite lower appetite and is sipping on protein-based smoothies between meals, which she enjoys. Recorded po intakes 50-100% during admission. Encouraged continued efforts to support adequate intakes and protein needs d/t PCM. Diet: 01/30/24 Dinner General (Regular) Diet Diet Modifications: Nutrition Percent Meal Consumed 50% 02/03/24 09:00 Percent Meal Consumed 50% 02/02/24 18:00 Percent Meal Consumed 75% 02/01/24 18:00 Electronically Signed by: Deidra Martin 02/03/24 10:41 Clinical Dietitian [address] [address]
--- NOTE | 2024-02-03 12:03 | PT-IP ANOTE ---
Holding PT at this time per hospitalist due to surgical consult for sacral wound.
--- NOTE | 2024-02-03 12:04 | OT.IPNOTE ---
Per hospitalist to have surgical consult on pt for her wound, therefore hold therapy today. Nursing was able to position pt with pillows in the bed. To check on the pt tomorrow.
--- NOTE | 2024-02-03 12:42 | PC.NURSE ---
Patient reluctant to mobilize. Discussed options for increasing comfort/padding edges of brace so that patient can get up. Patient states that she understands need move, but did not like alternatives discussed, states I understand, but it is not going to happen if I have to wear that thing. RN reports repositioning, while attempting to maintain precautions. Surgical consult for wound assessment.
--- NOTE | 2024-02-03 12:53 | P.PN_ITS ---
Subjective Subjective Date Patient Seen: 02/03/24 Time Patient Seen: 08:20 Interval history: The patient notes discomfort in her sacral area. She is not been compliant with her hip immobilizer brace stating it is very uncomfortable. Nursing noted an enlarging sacral ulcer. Exam Vital Signs (past 8 hours): - 02/03/24 05:50 02/03/24 07:45 02/03/24 08:30 Temperature 98.5 F 97.0 F L Pulse Rate 61 69 Respiratory Rate 17 16 Blood Pressure 133/57 L 175/77 H Pulse Oximetry 94 98 Oxygen Delivery Method Room Air Oxygen Flow Rate 0 02/03/24 08:55 Temperature Pulse Rate 70 Respiratory Rate Blood Pressure 152/82 H Pulse Oximetry Oxygen Delivery Method Oxygen Flow Rate Oxygen Delivery Method Room Air Oxygen Flow Rate 0 Narrative Exam Narrative: NAD, alert and oriented. Fluent speech. Lungs are clear, normal rate and effort. Heart is regular, no murmur gallop or rub. Abdomen is soft, non distended. Extremities are free of edema. Dermatologic exam shows a 6 x 5.5 cm sacral decubitus ulcer, possibly stage 4, with a central 2 x 3 cm dark tender central area of ecchymosis versus tissue necrosis. She has a caudal coccygeal 6 by 5.5 cm stage 1-2 ulcer with mild erythema. Objective Labs 02/03/24 06:00 02/03/24 06:00 Labs: Laboratory Results - last 24 hr 02/03/24 06:00 WBC 8.9 RBC 3.91 L Hgb 11.7 L Hct 34.9 L MCV 89.4 MCH 29.9 MCHC 33.4 RDW 16.0 H Plt Count 261 Neut % (Auto) 69.5 Lymph % (Auto) 16.6 L [place] % (Auto) 8.0 Eos % (Auto) 5.3 H Baso % (Auto) 0.6 Neut # (Auto) 6200 Lymph # (Auto) 1500 [place] # (Auto) 700 Eos # (Auto) 500 H Baso # (Auto) 0 Sodium 131 L Potassium 4.4 Chloride 103 Carbon Dioxide 27 BUN 23 H Creatinine 0.79 Estimated GFR > 60 BUN/Creatinine Ratio 29.1 H Glucose 87 Calcium 8.4 PFSH Social History household members: none Smoking Status: Never smoker alcohol intake: current Assessment & Plan Assessment & Plan narrative: 1. Rhabdomyolysis likely secondary to fall with prolonged immobilization. Present on admission and improved. - repeat CK was 435 yesterday. IV fluids stopped yesterday. Encourage oral intake. 2. 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 Present on admission and improved. s/p closed reduction in OR with orthopedics 01/30/2024. -PT / OT on hold given lack of participation and compliance with immobilizer brace 3. Hypertension, present on admission and active. -mildly elevated but adequate control. Continue current medications. 4. Decubitus sacral ulcer, unknown chronicity, present on admission and increasing in size due to immobility. - high risk for significant ulceration - continue dressing changes per nursing driven protocols. - frequent turning - surgery consultation Dispo: -consult surgery for an enlarging sacral decubitus ulcer. -frequent turning and pillow placement for comfort and healing -daily dressing changes -anticipate fdc facility. -son is in from [place] to help encourage patient. Code: Full, surrogate is patient's son DVT prophylaxis: Aspirin 81mg BID Time-Based Coding :: [TOTAL MINUTES] spent with patient and on the chart (including review of chart, obtaining history, exam, reviewing outside data, placing orders, documenting exam and treatment plan, and counseling patient) on [DATE]. PROFEE Charge codes Subsequent inpatient/observation care: 99911
--- NOTE | 2024-02-03 13:25 | CM.DPNOTE ---
DCP Cont Call placed to Rafael Grimes [facility] is covering for Julia in admissions. Discussed this referral and faxed to F [phone]. If patient is accepted, [facility] will not have a female bed available until Tuesday morning. CM team following closely. MAURA
--- NOTE | 2024-02-03 16:15 | PM.PN.1 ---
Subjective Subjective Interval history: Donya is a pleasant 89 year old female who is s/p closed reduction of a prosthetic left hip dislocation by Dr. Herbert. Today patient states she is doing okay overall she rates her pain as ?neutral?, slightly better than yesterday. She she did not work with PT today d/t wound workup and refusal of wearing brace. She reports she does not tolerate the hip brace and is adamant about not using it due to the significant discomfort it causes her. She feels that the discomfort from the brace outweighs the pain in her hip. She is quite petite and the plastic at the midportion of the brace rubs against her spinous processes and causes a lot of pain. We discussed possible other ways to make the brace more comfortable but she declines. Denies fever, chills, chest pain, SOB, nausea, vomiting. Exam Vital Signs (past 8 hours): - 02/03/24 08:30 02/03/24 08:55 Pulse Rate 70 Blood Pressure 152/82 H Oxygen Delivery Method Room Air Oxygen Delivery Method Room Air Oxygen Flow Rate 0 Narrative Exam Narrative: Lying comfortably in bed during interview today, SCDs intact and functioning, no acute distress. Gross sensation intact throughout bilateral lower extremities Calf soft and nontender bilaterally 5/5 strength right df, PF, EHL, knee and hip flexion. 4/5 strength left DF, PF, EHL. Resp Effort & Inspection: normal respiratory effort and able to speak in complete sentences Cardio Rate: regular rate Other: Brisk capillary refill. Objective Labs 02/03/24 06:00 02/03/24 06:00 Labs: Laboratory Results - last 24 hr 02/03/24 06:00 WBC 8.9 RBC 3.91 L Hgb 11.7 L Hct 34.9 L MCV 89.4 MCH 29.9 MCHC 33.4 RDW 16.0 H Plt Count 261 Neut % (Auto) 69.5 Lymph % (Auto) 16.6 L [place] % (Auto) 8.0 Eos % (Auto) 5.3 H Baso % (Auto) 0.6 Neut # (Auto) 6200 Lymph # (Auto) 1500 [place] # (Auto) 700 Eos # (Auto) 500 H Baso # (Auto) 0 Sodium 131 L Potassium 4.4 Chloride 103 Carbon Dioxide 27 BUN 23 H Creatinine 0.79 Estimated GFR > 60 BUN/Creatinine Ratio 29.1 H Glucose 87 Calcium 8.4 PFSH Social History household members: none Smoking Status: Never smoker alcohol intake: current Assessment & Plan Assessment & Plan narrative: 1) Continue to work w/ PT. WBAT to RLE. She needs a hip abduction brace to wear when walking although patient refuses to wear the brace this time. The purpose of the brace is to block her from anything beyond neutral extension, 70? of flexion, and 15? of abduction. It needs to be well-padded circumfrentially about the waist d/t her small frame. I would recommend wrapping a towel folded lengthwise around her waist or perhaps cutting off the leg of a thick pair of sweatpants to help pad all bony prominences. Patient has been counseled on risks of not using the brace when walking. 2) Continue hip abduction pillow when in bed. If she is not a side sleeper, she can discontinue use of the pillow. 3) Patient to f/u w/ Dr Herbert to discuss hip revision options/plan to prevent further dislocations, if desired. This can be in 3-4 weeks, or whenever is convenient for caregivers. Based on CM note, she may go to [facility] or a facility in [place] where she has been in the past. 4) Continue ASA 81mg BID x 4 weeks for VTE prophylaxis. 5) Disposition, pain management per hospitalist service. Time-Based Coding :: [TOTAL MINUTES] spent with patient and on the chart (including review of chart, obtaining history, exam, reviewing outside data, placing orders, documenting exam and treatment plan, and counseling patient) on [DATE].
--- NOTE | 2024-02-03 18:03 | PM.CN ---
History of Present Illness Consult details Date Patient Seen: 02/03/24 Time Patient Seen: 18:04 Chief complaint: Fall/Confusion Narrative: 89F POD 4 sp closed reduction of left hip. She is having a difficult time mobilizing and has remained largely bed bound. Consulted in regards to a developing pressure injury to sacrum. No history of pressure injuries. Meds Home Medications and Allergies Home Medications Medication Instructions Recorded Confirmed Type estradiol 1 mg tablet 1 mg PO DAILY 01/30/24 01/30/24 History famotidine 20 mg tablet 20 mg PO DAILY 01/30/24 01/30/24 History hydrocodone 10 mg-acetaminophen 1 tab PO Q6H PRN pain 01/30/24 01/30/24 History 325 mg tablet levothyroxine 75 mcg tablet 75 mcg PO DAILY 01/30/24 01/30/24 History (Synthroid) montelukast 10 mg tablet 10 mg PO DAILY 01/30/24 01/30/24 History Allergies Allergy/AdvReac Type Severity Reaction Status Date / Time pollen extracts Allergy Verified 01/30/24 11:46 Exam Vital Signs (past 8 hours): - 02/03/24 15:00 Temperature 99.6 F Pulse Rate 80 Respiratory Rate 16 Blood Pressure 165/76 H Pulse Oximetry 96 Oxygen Delivery Method Room Air Oxygen Flow Rate 0 Narrative Exam Narrative: Gen--Elderly frail woman alert and oriented Chest--Non labored resp Back-Pressure injury right of sacrum approximately 6 inches with denuding of the skin. No infection Objective Labs 02/03/24 06:00 02/03/24 06:00 Labs: Laboratory Results - last 24 hr 02/03/24 06:00 WBC 8.9 RBC 3.91 L Hgb 11.7 L Hct 34.9 L MCV 89.4 MCH 29.9 MCHC 33.4 RDW 16.0 H Plt Count 261 Neut % (Auto) 69.5 Lymph % (Auto) 16.6 L [place] % (Auto) 8.0 Eos % (Auto) 5.3 H Baso % (Auto) 0.6 Neut # (Auto) 6200 Lymph # (Auto) 1500 [place] # (Auto) 700 Eos # (Auto) 500 H Baso # (Auto) 0 Sodium 131 L Potassium 4.4 Chloride 103 Carbon Dioxide 27 BUN 23 H Creatinine 0.79 Estimated GFR > 60 BUN/Creatinine Ratio 29.1 H Glucose 87 Calcium 8.4 PFSH Social History household members: none Tobacco & Substance Use Smoking Status: Never smoker alcohol intake: current Assessment & Plan Assessment and plan (1) Decubitus skin ulcer: Qualifiers: Pressure injury location: sacral region Status: Acute Assessment & Plan narrative: 89F POD 4 sp closed reduction of left hip with a sacral pressure injury grade 2 -Optimize nutrition. -Protein supplement with each meal -Dietary consult ordered -Frequent repositioning -No need for surgical debridement or antibiotic therapy at this time -Cover wound Mepilex or gauze Time-Based Coding :: [TOTAL MINUTES] spent with patient and on the chart (including review of chart, obtaining history, exam, reviewing outside data, placing orders, documenting exam and treatment plan, and counseling patient) on [DATE].
[2024-02-03] MEDS: ALBUTEROL 2.5 MG/3 ML NEB (ADULT) INH (18:28)
--- NOTE | 2024-02-03 22:53 | PC.NURSE ---
Addendum entered by Jennifer Nelson R.N. 02/04/24 05:35: Troponin returned at 0.022. Dr. Petersen notified and telemetry placed and order for troponin to be repeated at 6h mar. Addendum entered by Jennifer Nelson R.N. 02/04/24 04:31: At 0317 patient called and stated she was having sharp, 8/10 pain in mid chest without radiation. No diaphoresis or SOB. BP was 171/79 with HR of 79 and RA sat of 95%. EKG was done after which message sent to Dr. Petersen informing him of information and that EKG report was locatied under reports. No response after 15 min and patient continuing to state pain feels like a lead weight on my chest so Dr. Petersen contacted via phone and new orders received. NTG administered x3 after which patient still stating pain was 7/10 although lying quietly in bed with eyes closed between interventions. IV started per Raphael, [employer], and troponin obtained. Morphine administered for pain still at 7/10 and now appears to be asleep. Original Note: Patient is alert and oriented. Breath sounds CTA with RA sat of 98%. HRR but BP elevated at 168/77; is on Lisinopril. Denied nausea. BT present and abdomen is soft. External catheter is in place related to poor mobility as well as pressure injury on coccyx. Is assisted to reposition q2h as patient will allow and trying to keep only on sides. Is difficult to keep off back with abduction pillow in place so multiple pillows utilized between legs when positioned on sides. Gait not assessed. Has not had PT since 01/31 due to patient refusing to wear hip abduction brace; on 01/31 was able to walk in room with 1 assist + walker. Dressing to coccyx is CDI. No new skin issues observed at time of assessment. Agreeable to having bilateral calf SCD's placed when last turned at 2200. Placed on contact isolation as sacral ulcer culture showing gm + cocci on gram stain. Fall risk score is high and bed alarm is activated. Denied any pain although complains of skin sensitivity when legs touched/moved.
[2024-02-04] VITALS (9 sets, daily range): BP systolic 121–171; BP diastolic 60–79; PULSE 73–87; RESP 16–18; TEMP 36.7–37.2; O2SAT 93–98
--- NOTE | 2024-02-04 03:27 | EKG_ITS ---
[address] [address] [place] [address] Test Date: 2024-02-04 Pat Name: Donya Arreguin Department: [facility] Room: 203 Gender: Female College Associate: mik : 1935 Requested By: Order Number: [id number] Reading MD: Miki Bowden Measurements Intervals [place] Rate: 77 P: 64 WI: 124 QRS: -15 QRSD: 78 T: 64 QT: 358 QTc: 405 Interpretive Statements Normal sinus rhythm Possible Left atrial enlargement Nonspecific T wave abnormality Electronically Signed On 02-07-2024 9:00:16 PDT by Miki Bowden
[2024-02-04] MEDS: NITROGLYCERIN 0.4 MG SL TAB SL ×3 (03:55→04:08)
[2024-02-04] MEDS: MORPHINE 2 MG/ML INJ IV (04:24)
[2024-02-04 05:20] LABS: Troponin I 0.022 ng/mL (0.01-0.034)
[2024-02-04] MEDS: LEVOTHYROXINE 75 MCG TABLET PO (05:55)
--- NOTE | 2024-02-04 07:11 | P.PN_ITS ---
Subjective Subjective Date Patient Seen: 02/04/24 Time Patient Seen: 08:20 Interval history: Interval history overnight Addendum entered by Jennifer Nelson R.N. 02/04/24 05:35: Troponin returned at 0.022. Dr. Petersen notified and telemetry placed and order for troponin to be repeated at 6h mar. Addendum entered by Jennifer Nelson R.N. 02/04/24 04:31: At 0317 patient called and stated she was having sharp, 8/10 pain in mid chest without radiation. No diaphoresis or SOB. BP was 171/79 with HR of 79 and RA sat of 95%. EKG was done after which message sent to Dr. Petersen informing him of information and that EKG report was locatied under reports. No response after 15 min and patient continuing to state pain feels like a lead weight on my chest so Dr. Petersen contacted via phone and new orders received. NTG administered x3 after which patient still stating pain was 7/10 although lying quietly in bed with eyes closed between interventions. IV started per Raphael, CHOIR SINGER, and troponin obtained. Morphine administered for pain still at 7/10 and now appears to be asleep. Original Note: Patient is alert and oriented. Breath sounds CTA with RA sat of 98%. HRR but BP elevated at 168/77; is on Lisinopril. Denied nausea. BT present and abdomen is soft. External catheter is in place related to poor mobility as well as pressure injury on coccyx. Is assisted to reposition q2h as patient will allow and trying to keep only on sides. Is difficult to keep off back with abduction pillow in place so multiple pillows utilized between legs when positioned on sides. Gait not assessed. Has not had PT since 01/31 due to patient refusing to wear hip abduction brace; on 01/31 was able to walk in room with 1 assist + walker. Dressing to coccyx is CDI. No new skin issues observed at time of assessment. Agreeable to having bilateral calf SCD's placed when last turned at 2200. Placed on contact isolation as sacral ulcer culture showing gm + cocci on gram stain. Fall risk score is high and bed alarm is activated. Denied any pain although complains of skin sensitivity when legs touched/moved. Initialized on 02/03/24 22:53 - END OF NOTE The patient reports no further chest pain overnight. She states her sacrum/coccyx area is comfortable and supported at this point. She was able to get up and walk a few steps yesterday with nursing. Exam Vital Signs (past 8 hours): - 02/03/24 23:50 02/04/24 02:40 02/04/24 03:17 Temperature 98.9 F 98.0 F Pulse Rate 76 77 78 Respiratory Rate 18 18 Blood Pressure 156/73 H 160/77 H 171/79 H Pulse Oximetry 96 96 95 Oxygen Flow Rate 0 0 0 02/04/24 03:55 02/04/24 04:01 02/04/24 04:08 Temperature Pulse Rate 79 84 87 Respiratory Rate Blood Pressure 146/72 H 122/60 126/69 Pulse Oximetry Oxygen Flow Rate Oxygen Delivery Method Room Air Oxygen Flow Rate 0 Narrative Exam Narrative: NAD, alert and oriented. Fluent speech. Lungs are clear, normal rate and effort. Heart is regular, no murmur gallop or rub. Abdomen is soft, non distended. Extremities are free of edema. Dermatologic exam shows a 6 x 5.5 cm sacral decubitus ulcer, possibly stage 4, with a central 2 x 3 cm dark tender central area of ecchymosis versus tissue necrosis. She has a caudal coccygeal 6 by 5.5 cm stage 1-2 ulcer with mild erythema. Objective ECG Impression: Normal sinus rhythm at 77bpm Possible Left atrial enlargement Nonspecific T wave abnormality Labs 02/03/24 06:00 02/03/24 06:00 Labs: Laboratory Results - last 24 hr 02/04/24 04:20 Troponin I 0.022 [facility] Social History household members: none Smoking Status: Never smoker alcohol intake: current Assessment & Plan Assessment & Plan narrative: 1. Rhabdomyolysis likely secondary to fall with prolonged immobilization. Present on admission and improved. - repeat CK was 435 yesterday. IV fluids stopped yesterday. Encourage oral intake. 2. 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 Present on admission and improved. s/p closed reduction in OR with orthopedics 01/30/2024. -PT / OT on hold given lack of participation and compliance with immobilizer brace 3. Hypertension, present on admission and active. -mildly elevated but adequate control. Continue current medications. 4. Decubitus sacral ulcer, unknown chronicity, present on admission and increasing in size due to immobility. - high risk for significant ulceration - continue dressing changes per nursing driven protocols. - frequent turning - surgery consultation 02/03/2024, no debridement is indicated 5. Chest pain, ruled out for DC on initial troponin and followup and EKG, resolved - telemetry - serial cardiac enzymes negative to date - consider further workup Dispo: -consult surgery for an enlarging sacral decubitus ulcer. -frequent turning and pillow placement for comfort and healing -daily dressing changes -[facility]. -son is in from [place] to help encourage patient, care reviewed yesterday - telemetry - serial cardiac enzymes - consider further workup Code: Full, surrogate is patient's son DVT prophylaxis: Aspirin 81mg BID Time-Based Coding :: [TOTAL MINUTES] spent with patient and on the chart (including review of chart, obtaining history, exam, reviewing outside data, placing orders, documenting exam and treatment plan, and counseling patient) on [DATE]. PROFEE Charge codes Subsequent inpatient/observation care: 24830
[2024-02-04] MEDS: FAMOTIDINE 20 MG TABLET PO (09:25)
[2024-02-04] MEDS: DOCUSATE 100 MG CAPSULE PO ×2 (09:25→20:52)
[2024-02-04] MEDS: lisinopriL 10 MG TABLET PO (09:25)
[2024-02-04] MEDS: HYDROCODONE/ACET 5/325 TABLET 1 TAB PO ×3 (09:25→18:30)
[2024-02-04] MEDS: ASPIRIN EC 81 MG TABLET PO ×2 (09:26→20:52)
[2024-02-04] MEDS: SODIUM CHLORIDE 0.9% FLUSH 10 ML IV ×2 (09:26→20:52)
--- NOTE | 2024-02-04 10:49 | P.PN_ITS ---
Subjective Subjective Interval history: Patient states she is feeling well at this time with regards to her left hip. She has no pain numbness or tingling down her left extremity. She says that is uncomfortable for her to wear the hip immobilizer due to the sensitivity of the orthosis on her skin. She would episode of chest pain last night and was evaluated by the hospitalist on-call. Exam Vital Signs (past 8 hours): - 02/04/24 03:17 02/04/24 03:55 02/04/24 04:01 Temperature Pulse Rate 78 79 84 Respiratory Rate Blood Pressure 171/79 H 146/72 H 122/60 Pulse Oximetry 95 Oxygen Flow Rate 0 02/04/24 04:08 02/04/24 09:39 Temperature 98.4 F Pulse Rate 87 77 Respiratory Rate 16 Blood Pressure 126/69 171/68 H Pulse Oximetry 93 Oxygen Flow Rate Oxygen Delivery Method Room Air Oxygen Flow Rate 0 Narrative Exam Narrative: Patient was found lying in bed being repositioned by nursing staff. No pain to palpation along the left hip. Resolving ecchymosis along the posterior hip region. No pain to palpation along posterior calf or thigh. SCDs her on bilateral calf. Able to dorsiflex and plantar flex at the ankle against resistance. Sensation to light touch throughout the left lower extremity. Objective Labs 02/03/24 06:00 02/03/24 06:00 Labs: Laboratory Results - last 24 hr 02/04/24 04:20 Troponin I 0.022 PFSH Social History household members: none Smoking Status: Never smoker alcohol intake: current Assessment & Plan Post-op Postoperative Procedures: Procedures Operation Date: 01/30/24 12:45 Actual Procedure Side Surgeon p Closed Reduction Dislocated Hip Left Rafael Herbert MD Postoperative day: 5 Postoperative status: doing well Postoperative plan: routine post-op care Postoperative plan narrative: Discussed with the patient's importance of her to get up and work with therapy. She has already had a surgical consultation for developing decubitus ulcer. while not surgical now her prolonged bed rest only increases the development of a surgical ulcer. Recommend the patient wear loose-fitting shorts or scrub pants while utilizing the abduction brace. She may also apply double absorbent underwear when working with therapy. Discussed these measures with nursing staff and PT. Continue to work w/ PT. WBAT to RLE. She needs a hip abduction brace to wear when walking. The purpose of the brace is to block her from anything beyond neutral extension, 70? of flexion, and 15? of abduction. Patient has been counseled on risks of not using the brace when walking. Continue hip abduction pillow when in bed. If she is not a side sleeper, she can discontinue use of the pillow. Patient to f/u w/ Dr Herbert to discuss hip revision options/plan to prevent further dislocations, if desired. This can be in 3-4 weeks, or whenever is convenient for caregivers. Based on CM note, she may go to [facility] or a facility in [place] where she has been in the past. Continue ASA 81mg BID x 4 weeks for VTE prophylaxis. Continue bilateral SCDs while in bed. Reposition every 2 hours. Disposition, pain management per hospitalist service. Time Spent With Patient Time with patient: 25 - 35 minutes Quality VTE Deep Vein Thrombosis/Pulmonary Embolism Present on Admission: No
--- NOTE | 2024-02-04 10:55 | PT.IPTN ---
Current Diagnoses Pressure ulcer of unspecified site, unspecified stage (01/30/24) Unspecified dislocation of left hip, initial encounter (01/30/24) Traumatic ischemia of muscle, initial encounter (01/30/24) Other specified postprocedural states (01/30/24) Surgery Performed Operation Date: 01/30/24 12:45 Actual Procedures p Closed Reduction Dislocated Hip(Left) - Rafael Herbert MD Physical Therapy Treatment Note M2 PT-IP Current Condition Start: 01/30/24 15:24 Freq: NEEDED Status: Active Protocol: Document 01/31/24 09:30 AB (Rec: 01/31/24 14:11 AB [id number]) Physical Therapy Current Condition Current Condition Evaluation Date 01/31/24 Treatment Diagnosis s/p L hip dislocation s/p closed reduction; difficulty in walking Onset Date 01/30/24 M3 PT-IP Subjective Start: 01/30/24 15:24 Freq: NEEDED Status: Active Protocol: Document 02/04/24 10:55 AB (Rec: 02/04/24 13:02 AB [id number]) Subjective Physical Therapy Visit Type Type Treatment Note Visit Start Time 10:55 Visit Stop Time 12:30 Number of CUT LACE MACHINE OPERATOR Visits 0 Physical Therapy Visit Comments Patient Comments pt agreeable to do PT Therapy Pain Assessment Pain When Pain Assessed During Mobility Pain Present Pain Present Pain Reported Location Bilateral Calf Scale Used pain with touching; pain scale not stated Description Tender Pain Behaviors Calling Out,Wincing Pain Management Techniques Distraction,Modification of Treatment,Re-positioning, Timing of Activity with Medications M4 PT-IP Mobility and Gait Start: 01/30/24 15:24 Freq: NEEDED Status: Active Protocol: Document 02/04/24 10:55 AB (Rec: 02/04/24 13:02 AB [id number]) PT-Bed Mobility Assessment Rolling Level of Assist Maximal Assistance,1 Person Assistance Supine to Sit Supine to Sit Maximum Assistance,1 Person Assistance,2 Person Assistance ,Head of Bed Elevated,Bedrails PT-Transfer Assessment Sit to and From Stand Sit to and from Stand Maximum Assistance,1 Person Assistance,2 Person Assistance ,Use of Upper Extremities Equipment Transfer Assistive Device Gait Belt,Front Wheeled Walker Orthotic/Prosthetic Devices or Brace: No Transfers Transfer Destination Chair,Bedside Commode Transfer Technique Stand Step Pivot Transfer Ability Level of Assist Maximum Assistance,1 Person Assistance,2 Person Assistance ,Use of Upper Extremities Comments Mobility Comments PA informed PT to pad hip abductor brace and pt to wear pants if possible for pt's comfort due to pt refusing to use hip abductor brace. informed PA that PT can try but with more padding/fabric the brace will move or slide more on pt. talked with nurse and stated that [facility] will get pt scrub pants. asked [facility] for scrub pants and was provided. talked with pt and stated that the brace is not comfortable on her back due to her scoliosis and does not want to wear the brac. informed pt the purpose of the brace and importance of mobility. informed pt that PT will try to reposition and pad brace so pt will be more comfortable and pt to let PT know after PT session if she just wants to go back in bed and have the brace off. Pt understood and pt willing to try the brace again and get up with PT. completed rolling L<>R for donning of pants and brace. pt completed supine to sit max A x 1-2 and max cues. HOB elevated. pt required min A for sitting balance on EOB. repositioned brace again. pt requested to use the toilet. completed sit to stand from EOB max A x 1-2 and max cues and step transfer to bedside commode max A x 1-2 and max cues for hip precautions. pt required assist with pants/ brief management and hygiene care. pt required max A x 1-2 for sit to stand from bedside commode and max A x 1-2 for standing balance while assisted with pants/brief and hygiene care. re-adjusted brace in standing as brace tends to move when pt moves. Asked pt pt is she wants to go back to bed or sit on the chair. Pt wanting to sit on the chair. switched chair behind pt to sit on and required max A for controlled descent to chair and max cues for hip precautions. pt agreed to try to sit up on the chair for lunch. positioned pt on the chair. pt stated that the brace feels fine. call light and table placed within reach. M5 PT-IP Objective Assessments Start: 01/30/24 15:24 Freq: NEEDED Status: Active Protocol: Document 01/31/24 09:30 AB (Rec: 01/31/24 14:11 AB [id number]) Orientation Orientation/Cognition Level of Alertness Confusional State Orientation Name,Situation Language Function Ability Hard of Hearing Safety Awareness Decreased Safety Awareness Memory Description Short Term Impaired,Interceptor Operator Impaired Strength Lower Extremity Strength Assessment Left Impaired Hip 3+/5 Knee 4-/5 Muscle Tone Muscle Tone WNL Yes M6 PT-IP Treatment Start: 01/30/24 15:24 Freq: NEEDED Status: Active Protocol: Document 02/04/24 10:55 AB (Rec: 02/04/24 13:02 AB [id number]) Physical Therapy Treatment Education Education Provided Precautions,Safety M7 PT-IP Assessment and Plan Start: 01/30/24 15:24 Freq: NEEDED Status: Active Protocol: Document 02/04/24 10:55 AB (Rec: 02/04/24 13:02 AB [id number]) PT Summary Assessment and Plan Potential Rehabilitation Potential Fair Summary Impairments Pain,ROM,Strength,Balance, Coordination,Sensation,Tone, Cognition,Bed Mobility, Transfers,Gait,Activity Tolerance Progress Towards Goals Slow Progress due to Medical Issues,Slow Progress due to Activity Tolerance,Slow Progress - Other Assessment Summary pt requiries max A x 1-2 and max cues using FWW. recommending 2 person assist with nursing staff and transfers only at this time. pt tolerated brace during PT session but requires frequent readjustments for proper positioning as brace tends to move and unable to tighten brace much due to pt's body structure/scoliosis. pt will require SNF rehab to improve mobility. pt also has sacral ulcer affecting sitting tolerance and mobility. PT tx frequency decreased to once a day. Goals Bed Mobility Goal Minimal Assistance Transfer Goal Minimal Assistance,Front Wheeled Walker Gait Goal Minimal Assistance,Front Wheel Walker Gait Distance 50 Other Goals improve bed mobility, transfers, ambulation using fWW ~ 150 ft SBA up/down 3 steps SPC SBA Days to Meet Goals 10 Frequency of Treatment Frequency Of Treatment Once a Day Treatment Plan Physical Therapy Treatment Plan Bed Mobility Training,Transfer Training,Gait Training, Therapeutic Exercise,Balance Retraining,Post Op Education, Discharge Planning,Hot or Cold Pack,Neuromuscular Re-ed, Coordination Retraining,Manual Therapy Precautions Posterior Hip Precautions No Hip Flexion > 90 degrees,No Hip Internal Rotation,No Hip Adduction Anterior Hip Precautions No Hip Extension,No Hip External Rotation Weight Bearing Status Weight Bearing Status Weight Bear as Tolerated Allowed Weight Bearing Amount (enter % RLE WBAT or #) (%) Recommendations To Nursing Amount of Assist Needed 2 Person Assist Discharge Recommendations PT Discharge Recommendations SNF Rehab Transportation Needs at Discharge Wheelchair/Cabulance,Stretcher /Ambulance
[2024-02-04 10:59] LABS: Troponin I 0.013 ng/mL (0.01-0.034)
[2024-02-04] MEDS: estradioL 1 MG TABLET PO (11:11)
[2024-02-04] MEDS: MONTELUKAST 10 MG TABLET PO (20:52)
--- NOTE | 2024-02-04 23:16 | PC.NURSE ---
Patient is alert and oriented. Breath sounds CTA with RA sat of 98%. HRR w/telemetry reading of SR and denies any chest pain tonight. BT hypoactive and denies passing flatus and has not had a BM since 01/31; given hs dose of Colace. Denies nausea. External catheter in place at night due to limited mobility; denied dysuria. Is being repositioned q2h related to pressure injury on sacrum and is unable to reposition herself; attempts to keep her off her back as much as possible. Noted a new, stage 2, quarter size open area below previous one so allevyn dressing applied. Is using foam abductor pillow between legs when in bed. Did get up earlier today with assist of PT and wore hip abduction brace and able to sit up in chair for a few hours; used walker and 2 assists. Complains of bilateral calf tenderness with any touch so declined to wear SCD's tonight. Denied pain but did receive Vicodin at end of previous shift. CMS is intact bilaterally. On contact isolation as sacral wound culture is growing gm + cocci on gram stain. Fall risk score is high and bed alarm is activated.
[2024-02-05] VITALS (7 sets, daily range): BP systolic 113–154; BP diastolic 52–74; PULSE 73–85; RESP 13–18; TEMP 36.4–37.3; O2SAT 95–97
[2024-02-05] MEDS: HYDROCODONE/ACET 5/325 TABLET 1 TAB PO ×2 (06:12→20:27)
[2024-02-05] MEDS: LEVOTHYROXINE 75 MCG TABLET PO (06:12)
--- NOTE | 2024-02-05 07:20 | PM.PN.1 ---
Subjective Subjective Date Patient Seen: 02/05/24 Time Patient Seen: 09:30 Interval history: The patient states that her coccyx area is feeling better, and has been well padded with positioning and pillows. She was able to get up and walk again yesterday. No further chest pain episodes Exam Vital Signs (past 8 hours): - 02/05/24 00:00 02/05/24 00:00 02/05/24 06:12 Temperature 98.8 F 97.6 F Pulse Rate 85 84 Respiratory Rate 18 16 Blood Pressure 144/57 H 120/74 Pulse Oximetry 97 97 Oxygen Flow Rate 0 0 Oxygen Delivery Method Room Air Oxygen Flow Rate 0 Narrative Exam Narrative: NAD, alert and oriented. Fluent speech. Lungs are clear, normal rate and effort. Heart is regular, no murmur gallop or rub. Abdomen is soft, non distended. Extremities are free of edema. Dermatologic exam shows a 6 x 5.5 cm sacral decubitus ulcer, possibly stage 4, with a central 2 x 3 cm dark tender central area of ecchymosis versus tissue necrosis, with a caudal coccygeal 6 x 5.5 cm stage 1-2 ulcer with mild erythema per 02/03/2024 exam. Objective Labs 02/05/24 06:32 02/05/24 06:32 Labs: Laboratory Results - last 24 hr 02/04/24 10:23 Troponin I 0.013 [facility] Social History household members: none Smoking Status: Never smoker alcohol intake: current Assessment & Plan Assessment & Plan narrative: 1. Rhabdomyolysis likely secondary to fall with prolonged immobilization. Present on admission and improved. - repeat CK was 435 yesterday. IV fluids stopped yesterday. Encourage oral intake. 2. 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 Present on admission and improved. s/p closed reduction in OR with orthopedics 01/30/2024. -PT / OT on hold given lack of participation and compliance with immobilizer brace -posterior hip precautions per Orthopedics, outpatient follow-up with Dr. Rafael Herbert 3. Hypertension, present on admission and active. -mildly elevated but adequate control. Continue current medications. 4. Decubitus sacral ulcer, unknown chronicity, present on admission and increasing in size due to immobility, complicated by infection with Klebsiella and Pseudomonas. - high risk for significant ulceration - continue dressing changes per nursing driven protocols. - frequent turning - surgery consultation 02/03/2024, no debridement is indicated - start Levaquin 500 mg daily for 7 days on 02/05/2024 5. Chest pain on 02/04/2024, without recurrence, ruled out for ID on initial troponin and followup and EKG, resolved - telemetry - serial cardiac enzymes negative to date - consider further workup if further episodes Dispo: -frequent turning and pillow placement for comfort and healing -daily dressing changes -start Levaquin 500 mg daily for 7 days on 02/05/2024 -anticipate nursing home facility, [facility] in [facility] tomorrow -son is in from [place] to help encourage patient, care reviewed yesterday - telemetry - serial cardiac enzymes - consider further workup Code: Full, surrogate is patient's son DVT prophylaxis: Aspirin 81mg BID Time-Based Coding :: [TOTAL MINUTES] spent with patient and on the chart (including review of chart, obtaining history, exam, reviewing outside data, placing orders, documenting exam and treatment plan, and counseling patient) on [DATE]. Quality VTE Deep Vein Thrombosis/Pulmonary Embolism Present on Admission: No [facility] PROFEE Charge codes Subsequent inpatient/observation care: [id number]
[2024-02-05 07:29] LABS: Add Manual Diff / Slide Review NO; Basophils Absolute Auto 100 /uL (0-100); Basophils Percent Auto 0.6 % (0-2); Eosinophils Absolute Auto 300 /uL (0-450); Eosinophils Percent Auto 2.2 % (2-4); Hematocrit 33.1 % (36-46); Hemoglobin 11.1 g/dL (12.0-16.0); Lymphocytes Absolute Auto 900 /uL (1100-4500); Lymphocytes Percent Auto 7.9 % (25-40); Mean Corpuscular HGB Conc 33.7 % (30-36); Mean Corpuscular Hemoglobin 30.3 PG (26-34); Monocytes Absolute Auto 900 /uL (0-900); Monocytes Percent Auto 7.7 % (3-14); Neutrophils Absolute Auto 9500 /uL (1500-7000); Neutrophils Percent Auto 81.6 % (50-75); Platelet Count 253 X10^3/uL (150-400); Red Blood Cell Count 3.68 X10^6/uL (4.0-5.2); Red Cell Distribution Width 15.8 % (11.6-14.8); White Blood Cell Count 11.6 X10^3/uL (4.5-11.0)
[2024-02-05 07:51] LABS: BUN Creatinine Ratio 34.3 (6-22); Blood Urea Nitrogen 24 mg/dL (7-17); Carbon Dioxide 25 mmol/L (22-32); Chloride 100 mmol/L (98-107); Estimated Glomerular Filt Rate > 60 mL/min (>60); Glucose 80 mg/dL (80-110); HEMOLYSIS 30 (0-50); Potassium 4.6 mmol/L (3.4-5.1); Sodium 127 mmol/L (137-145)
[2024-02-05 08:01] LABS: Troponin I 0.017 ng/mL (0.01-0.034)
[2024-02-05] MEDS: FAMOTIDINE 20 MG TABLET PO (09:05)
[2024-02-05] MEDS: DOCUSATE 100 MG CAPSULE PO ×2 (09:05→20:27)
[2024-02-05] MEDS: lisinopriL 10 MG TABLET PO (09:05)
[2024-02-05] MEDS: estradioL 1 MG TABLET PO (09:05)
[2024-02-05] MEDS: ASPIRIN EC 81 MG TABLET PO ×2 (09:05→20:27)
[2024-02-05] MEDS: SODIUM CHLORIDE 0.9% FLUSH 10 ML IV ×2 (09:06→20:27)
[2024-02-05] MEDS: levoFLOXacin 250 MG TABLET 750 MG PO (10:01)
--- NOTE | 2024-02-05 10:59 | CM.DPNOTE ---
Addendum entered by CARLITOS Davis 02/05/24 15:23: BAIL BONDING AGENT had lengthy DCP conversation with pt and son in room. Updated them on waiting answers. Preference [facility], pt now unsure though because she wants friend to tour it first. BAIL BONDING AGENT explained that if we have an accepting facility tomorrow, we will go ahead and discharge her there and that pending medically necessity, will not be holding her another day because of new preference. Pt expressed understanding. Per previous PT recs, rec BLS transport. BAIL BONDING AGENT explained potential cost associated with BLS transport. Pt expressed understanding. In agreement with BLS transport. Son in agreement with plan. P [facility] likely tuesday pending accepting facility. BLS transport needed. SL Original Note: DCP Note BAIL BONDING AGENT reviewed EMR. Per previous CM notes, both SNF options ([facility] and [facility]) have no admissions team until Tuesday. Per Hospitalist, pt getting new abx but other than that, cleared to dc when placement available. PASRR previously completed. P: [facility] likely tuesday pending accepting facility. Previous transport plan was BLS...needs to be arranged vs could pt tolerate w/c van?. CM team will coordinate with SNFs Tuesday. CARLITOS Davis
--- NOTE | 2024-02-05 11:19 | PT-IP ANOTE ---
PT reviews chart and notes PT note from last date that pt has decreased tolerance to abduction brace. Nsg approaches PT to ask PT if there has been an update about the brace. PT does not see any updates in chart from ortho about the brace. PT and nsg speak to pt. Pt states that the doctor has determined that the brace does not work. PT ed pt that PT does not see any update from ortho about this and offers to assist pt OOB if she would like and she would have to wear brace. Pt states that she does not want to get up if it has anything to do with brace. PT will check back next date. In the interim, PT erroneously discontinues PT order and is unable to restore. Will attempt to ask nsg to put in another PT order. Hospitalist nor nsg currently available for PT to ask. Ortho could also put in another order and update any orders about the brace. Thank you.
--- NOTE | 2024-02-05 11:54 | PM.PN.1 ---
Subjective Subjective Date Patient Seen: 02/05/24 Time Patient Seen: 11:54 Interval history: This is a pleasant 89-year-old female here after she had a left hip dislocation (periprosthetic). This was reduced in the ED. currently denies any distal numbness or tingling. Denies any recent nausea, vomiting, diarrhea, fevers, chills or any other constitutional symptoms. No other complaints at this time. Exam Vital Signs (past 8 hours): - 02/05/24 06:12 02/05/24 08:00 02/05/24 09:05 Temperature 97.6 F 98.1 F Pulse Rate 84 73 73 Respiratory Rate 16 13 Blood Pressure 120/74 113/60 113/60 Pulse Oximetry 97 95 Oxygen Flow Rate 0 0 Oxygen Delivery Method Room Air Oxygen Flow Rate 0 Narrative Exam Narrative: HEENT: Head atraumatic eyes anicteric moist mucous membranes Cardiovascular: Palpable peripheral pulses extremities are warm and well perfused Respiratory: Breathing comfortably on room air Psychiatric: Appropriate mood and affect Neuro: No acute deficits Musculoskeletal: Internal and external log roll of the left leg demonstrates good rotation. Did not flex and rotate due to her known instability. Distally sensation intact in sural, saphenous, superficial peroneal, deep peroneal and tibial nerve distributions. Able to flex EHL, FHL, tib ant and gastrocs. 2+ dorsalis pedis pulse with brisk capillary refill less than 2 seconds. Objective Labs 02/05/24 06:32 02/05/24 06:32 Labs: Laboratory Results - last 24 hr 02/05/24 06:32 WBC 11.6 H RBC 3.68 L Hgb 11.1 L Hct 33.1 L MCV 90.0 MCH 30.3 MCHC 33.7 RDW 15.8 H Plt Count 253 Neut % (Auto) 81.6 H Lymph % (Auto) 7.9 L [place] % (Auto) 7.7 Eos % (Auto) 2.2 Baso % (Auto) 0.6 Neut # (Auto) 9500 H Lymph # (Auto) 900 L [place] # (Auto) 900 Eos # (Auto) 300 Baso # (Auto) 100 Sodium 127 L Potassium 4.6 Chloride 100 Carbon Dioxide 25 BUN 24 H Creatinine 0.70 Estimated GFR > 60 BUN/Creatinine Ratio 34.3 H Glucose 80 Calcium 8.0 L Troponin I 0.017 PFSH Social History household members: none Smoking Status: Never smoker alcohol intake: current Assessment & Plan Assessment & Plan narrative: Assessment: 89-year-old female with left hip dislocation which is now reduced Plan: Follow up Dr. Herbert next available appointment. Patient expressed understanding with this plan all of her questions were answered fully to her satisfaction. She will continue with posterior hip precautions. Time-Based Coding :: [TOTAL MINUTES] spent with patient and on the chart (including review of chart, obtaining history, exam, reviewing outside data, placing orders, documenting exam and treatment plan, and counseling patient) on [DATE]. Quality VTE Deep Vein Thrombosis/Pulmonary Embolism Present on Admission: No
--- NOTE | 2024-02-05 12:01 | PT-IP ANOTE ---
Nsg is able to put in new PT order.
--- NOTE | 2024-02-05 15:45 | PC.NURSE ---
Day shift: Patient has 1 half dollar-sized pressure sore on coccyx - blackish eschar appears to be present. MD Beasley aware. Tender to touch when cleaning. Additional 2 open areas below the coccyx on buttocks - blanchable but open and red. Allevant dressings applied to all. Pillows placed to keep patient off her bottom. Patient refused to use brace today, thus did not get out of bed. Will continue to monitor.
[2024-02-05] MEDS: MONTELUKAST 10 MG TABLET PO (20:27)
[2024-02-06] VITALS (7 sets, daily range): BP systolic 100–136; BP diastolic 49–65; PULSE 70–81; RESP 16; TEMP 36.4–37.4; O2SAT 95–98
[2024-02-06] MEDS: HYDROCODONE/ACET 5/325 TABLET 1 TAB PO ×2 (04:04→14:26)
[2024-02-06] MEDS: LEVOTHYROXINE 75 MCG TABLET PO (05:47)
[2024-02-06] MEDS: estradioL 1 MG TABLET PO (09:47)
[2024-02-06] MEDS: lisinopriL 10 MG TABLET PO (09:47)
[2024-02-06] MEDS: polyethylene glycoL 3350 17 GM POWD.PACK PO (09:47)
[2024-02-06] MEDS: FAMOTIDINE 20 MG TABLET PO (09:47)
[2024-02-06] MEDS: ASPIRIN EC 81 MG TABLET PO ×2 (09:47→20:08)
[2024-02-06] MEDS: DOCUSATE 100 MG CAPSULE PO ×2 (09:47→20:08)
--- NOTE | 2024-02-06 10:46 | DIET.CONS2 ---
Dietary Inpatient Consultation Note Admission Date: 01/30/2024 01:10 Nutrition f/u. Nutrition consulted to optimize nutrition for pressure injury. Tolerated protein supplement being provided with meals, Shahbaz trial today. Will continue to follow for po intakes and shahbaz tolerance. Diet: 01/30/24 Dinner General (Regular) Diet Diet Modifications: protein supplement with each meal Nutrition Percent Meal Consumed 50% 02/05/24 18:00 Percent Meal Consumed 25% 02/04/24 18:00 Percent Meal Consumed 50% 02/04/24 11:19 Electronically Signed by: Deidra Martin 02/06/24 10:46 Clinical Dietitian [address] [id number]
--- NOTE | 2024-02-06 11:53 | OT.IP.TRT ---
Current Diagnoses Pressure ulcer of unspecified site, unspecified stage (01/30/24) Unspecified dislocation of left hip, initial encounter (01/30/24) Traumatic ischemia of muscle, initial encounter (01/30/24) Other specified postprocedural states (01/30/24) Surgery Performed Operation Date: 01/30/24 12:45 Actual Procedures p Closed Reduction Dislocated Hip(Left) - Rafael Herbert MD Occupational Therapy Treatment Note M2 OT-IP Current Condition Start: 01/31/24 14:15 Freq: Status: Active Protocol: Document 01/31/24 14:15 CCC (Rec: 01/31/24 14:33 [facility] [id number]) Occupational Therapy Current Condition Current Condition Evaluation Date 01/31/24 Treatment Diagnosis FAll S/P Left hip dislocations Diagnosis Onset Date 01/30/24 Post Operative Precautions Posterior Hip Precautions No Hip Flexion > 90 degrees,No Hip Internal Rotation,No Hip Adduction Anterior Hip Precautions No Hip Extension,No Hip External Rotation Other Precautions Hip abductions brace when out of bed and pillow on in bed. Weight Bearing Status Weight Bearing Status Weight Bear as Tolerated M3 OT- IP Subjective and Pain Start: 01/31/24 14:15 Freq: Status: Active Protocol: Document 02/06/24 13:54 CGR (Rec: 02/06/24 14:05 CGR [id number]) OT- Subjective Occupational Therapy Visit Type Type Treatment Note Visit Start Time 11:24 Visit Stop Time 11:53 OT Pain Assessment Pain When Pain Assessed At Rest Pain Present Pain Present Denied Pain M4 OT- IP ADL's Start: 01/31/24 14:15 Freq: Status: Active Protocol: Document 02/06/24 13:54 CGR (Rec: 02/06/24 14:05 CGR [id number]) OT [id number] Comments OT Self-Feeding Comments not meal time OT ADL-Grooming Comments OT Grooming Comments not performed OT ADL-Oral Care Comments Oral Care Comments not performed OT ADL-Dressing General Eval Lower Body Dressing Ability Total Assistance Areas Needing Assistance Orthosis/Prosthesis Comments OT Dressing Comments total assist with hip brace. OT ADL-Toileting General Evaluation Toileting Ability Total Assistance Comments OT Toileting Comments Pt has periwick for toileting. OT ADL-Bathing Comments OT Bathing Comments not performed M5 OT- IP IADL's Start: 01/31/24 14:15 Freq: Status: Active Protocol: Document 01/31/24 14:15 [facility] (Rec: 01/31/24 14:33 [facility] [id number]) OT-Instrumental Activities of Daily Living Deficits IADL Deficits Identified Deficits Home Safety Awareness Awareness of Need for Assistance at Home Good Awareness Home Safety Comments Pt is well aware that she will not be able to care for herself and after skilled rehab looking to hire assist to stay with her. M6 OT- IP Functional Cognition Start: 01/31/24 14:15 Freq: Status: Active Protocol: Document 02/02/24 12:16 [facility] (Rec: 02/02/24 12:24 [facility] [id number]) Cognitive Factors Limiting Selfcare Function Cognitive Ability Level of Alertness Alert Patient Orientation Name,Age,Birthday,Month,Date, Year,Day of Week,Place, Situation Attention Span Ability Capable of Focused Attention, Capable of Sustained Attention Ability to Follow Commands Able to Follow One Step Commands Memory Description Short Term Impaired Safety Awareness Decreased Recall of Precautions,Decreased Ability to Apply Precautions, Underestimates Need for Assistance Problem Solving Ability Needs Assist to Identify Solutions Cognitive Tests SLUMS 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 Pt able to recall 4/5 objects after time passed, not able to draw the hour hands of the clock correctly after time given, and able to answer 3/4 questions right after paragraph read. Cognitive Comments Cognitive Assessment Comments Pt able to answer all home safety questions with increased time. Pt is insistent that she deos not want to wear the brace and that she will be fine without as has been independent prior. Pt however not able to recall that she has anterior and posterior hip precautions to follow. Even after education still not able to recall her anterior and posterior precautions. M7 OT- IP Mobility and Balance Start: 01/31/24 14:15 Freq: Status: Active Protocol: Document 02/06/24 13:54 CGR (Rec: 02/06/24 14:05 CGR [id number]) OT- Bed Mobility Assessment Supine to Sit Supine to Sit Assist Minimal Assistance,Moderate Assistance,2 Person Assistance Sit to Supine Sit to Supine Assist Minimal Assistance,Moderate Assistance,2 Person Assistance Scooting Scooting to Edge of Bed Minimal Assistance,Moderate Assistance,2 Person Assistance OT-Transfer Assessment Sit to and From Stand Sit to and from Stand Moderate Assistance,1 Person Assistance Transfers Transfer Ability Minimal Assistance,2 Person Assistance Technique Transfer Destination Bed Transfer Technique Stand Step Pivot Devices Transfer Assistive Devices Gait Belt,Front Wheeled Walker Comments Mobility Comments Pt stood from edge of bed with max vc for maintaining hip precautions. Pt stood for donning brace but brace is ill fitting d/t pt's hx of scoliosis. Pt then took steps in the room with small steps but without apparent pain or difficulty. OT- Balance Assessment Sitting Balance and Reactions Static Sitting Balance Ability Fair Dynamic Sitting Balance Ability Fair M8 OT- IP Objective Assessments Start: 01/31/24 14:15 Freq: Status: Active Protocol: Document 01/31/24 14:15 CCC (Rec: 01/31/24 14:33 CCC [id number]) OT Gross Range of Motion Upper Extremity Range of Motion Assessment Within Functional Limits OT Strength Upper Extremity Strength Assessment Within Functional Limits Comments Strength Comments WFL for age and lifestyle. M9 OT- IP Assessment and Plan Start: 01/31/24 14:15 Freq: Status: Active Protocol: Document 02/06/24 13:54 CGR (Rec: 02/06/24 14:05 CGR [id number]) OT Summary Assessment and Plan Potential Rehabilitation Potential Good Analytic Complexity at Evaluation Moderate Summary OT Impairments Pain,Strength,Balance, Functional Cognition, Functional Mobility,Grooming, Dressing,Toileting,Bathing, Toilet Transfers,Shower Transfers,Activity Tolerance Progress Towards Goals Slow Progress due to Pain,Slow Progress due to Medical Issues,Slow Progress due to Activity Tolerance Assessment Summary Pt is agreeable to mobility and decided with P.T. to don brace standing at bedside with extra care taken to bed mobility to EOB. Pt tolerated movement well and noted that brace is indeed ill fitting when donned in standing. Pt tolerated standing for some time as brace was donned then for ambulating. Pt then stood while brief was changed. Pt returned to bed. Pt's mobility is quite good but limited by anterior and posterior hip precautions with hip fx 0-70. Pt will benefit from SNF upon discharge. Goals Self-Feeding Goal Independent Grooming Goal Independent Dressing Goal Moderate Assistance Toileting Goal Minimal Assistance Bathing Goal Moderate Assistance Toilet Transfer Goal Standby Assistance Shower Transfer Goal Contact Guard Assistance Days to Meet Goals 25 Frequency of Treatment Frequency Of Treatment Once a Day Treatment Plan OT Treatment Plan ADL Training,Functional Cognition Training,Functional Mobility,Patient/Family Education,Discharge Planning Other Treatment Recommendations and Next Pt to recall her hip Treatment Focus precautions 50% of the time. Discharge Recommendations OT Discharge Recommendations SNF Rehab Transportation Needs at Discharge Stretcher/Ambulance
--- NOTE | 2024-02-06 12:58 | PT.IPTN ---
Current Diagnoses Pressure ulcer of unspecified site, unspecified stage (01/30/24) Unspecified dislocation of left hip, initial encounter (01/30/24) Traumatic ischemia of muscle, initial encounter (01/30/24) Other specified postprocedural states (01/30/24) Surgery Performed Operation Date: 01/30/24 12:45 Actual Procedures p Closed Reduction Dislocated Hip(Left) - Rafael Herbert MD Physical Therapy Treatment Note M2 PT-IP Current Condition Start: 01/30/24 15:24 Freq: NEEDED Status: Active Protocol: Document 01/31/24 09:30 AB (Rec: 01/31/24 14:11 AB [id number]) Physical Therapy Current Condition Current Condition Evaluation Date 01/31/24 Treatment Diagnosis s/p L hip dislocation s/p closed reduction; difficulty in walking Onset Date 01/30/24 M3 PT-IP Subjective Start: 01/30/24 15:24 Freq: NEEDED Status: Active Protocol: Document 02/06/24 11:10 MB (Rec: 02/06/24 12:58 MB [id number]) Subjective Physical Therapy Visit Type Type Treatment Note Visit Start Time 11:10 Visit Stop Time 12:00 Number of SMOOTH PLATER Visits 0 Physical Therapy Visit Comments Patient Comments Pt requires a lot of encouragement to participate with PT and PT encourages pt since PT, SPT, and OT can all assist with brace and look at brace, that it is a good time to get up and assess brace again, since that is her biggest complaint. Pt is very concerned about pain related to the brace. Therapy Pain Assessment Pain When Pain Assessed During Mobility Pain Present Pain Present Pain Reported Location Bilateral Calf Scale Used Pain with touching Pain Management Techniques Distraction,Modification of Treatment,Re-positioning M4 PT-IP Mobility and Gait Start: 01/30/24 15:24 Freq: NEEDED Status: Active Protocol: Document 02/06/24 11:10 MB (Rec: 02/06/24 12:58 MB [id number]) PT-Bed Mobility Assessment Supine to Sit Supine to Sit 2 Person Assistance,Head of Bed Elevated,Bedrails Sit to Supine Sit to Supine 2 Person Assistance,Head of Bed Elevated,Bedrails Scooting Scooting to Edge of Bed Minimal Assistance,Moderate Assistance Scooting Up and Down in Bed Minimal Assistance,Moderate Assistance PT-Transfer Assessment Sit to and From Stand Sit to and from Stand Moderate Assistance,2 Person Assistance,Use of Upper Extremities Equipment Transfer Assistive Device Gait Belt,Front Wheeled Walker Orthotic/Prosthetic Devices or Brace: No Transfer Ability Level of Assist Moderate Assistance,2 Person Assistance,Use of Upper Extremities Comments Mobility Comments Pt requires cues, increased time, 2-3 person assistance for mobility to protect left leg/keep left leg in proper position for bed mobility. Pt is able to initiate bed mobility as far as scooting, sitting, and using right leg to help scoot in the bed. Assistance guarding/lifting left leg to get back to bed and scooting. Pt stands about 10' with RW and assistance for therapists to look at brace and try to position it better. It is not possible and brace remains off center d/t severe scoliotic curve to the left inferiorly and when adjusted, metal deangelo is close to pt's posterior left thigh. Gait Assessment Gait Gait Assistance Required: Moderate Assistance,1 Person Assist,2 Person Assist Distance (Feet) 2 Able to Maintain Weight Bearing Status Yes During Gait Assistive Devices Assistive Device Gait Belt,Front Wheeled Walker Orthotic/Prosthetic Devices or Brace: No Gait Deviations General Gait Pattern Antalgic,Decreased Feet Clearance Factors Limiting Gait Function Factors Limiting Gait Function Decreased Activity Tolerance, Decreased Strength,Difficulty Following Directions,Limited Range of Motion,Pain,Poor Balance,Poor Safety Awareness Comments Gait Comments Cues for baby steps including side stepping and backward stepping to protect hip precautions PT-Balance Assessment Sitting Balance and Reactions Static Sitting Balance Ability Good Dynamic Sitting Balance Ability Fair Standing Balance and Reactions Static Standing Balance Ability Fair Dynamic Standing Balance Ability Fair Device Used FWW M5 PT-IP Objective Assessments Start: 01/30/24 15:24 Freq: NEEDED Status: Active Protocol: Document 01/31/24 09:30 AB (Rec: 01/31/24 14:11 AB [id number]) Orientation Orientation/Cognition Level of Alertness Confusional State Orientation Name,Situation Language Function Ability Hard of Hearing Safety Awareness Decreased Safety Awareness Memory Description Short Term Impaired,Service Observer Chief Impaired Strength Lower Extremity Strength Assessment Left Impaired Hip 3+/5 Knee 4-/5 Muscle Tone Muscle Tone WNL Yes M6 PT-IP Treatment Start: 01/30/24 15:24 Freq: NEEDED Status: Active Protocol: Document 02/06/24 11:10 MB (Rec: 02/06/24 12:58 MB [id number]) Physical Therapy Treatment Education Education Provided Precautions,Safety M7 PT-IP Assessment and Plan Start: 01/30/24 15:24 Freq: NEEDED Status: Active Protocol: Document 02/06/24 11:10 MB (Rec: 02/06/24 12:58 MB [id number]) PT Summary Assessment and Plan Potential Rehabilitation Potential Fair Summary Impairments Pain,ROM,Strength,Balance, Coordination,Bed Mobility, Transfers,Gait,Activity Tolerance Progress Towards Goals Slow Progress due to Medical Issues,Slow Progress due to Activity Tolerance,Slow Progress - Other Assessment Summary Pt has right greater than left thigh swelling today. She requires encouragement to participate with PT as she is concerned about pain caused by the brace. PT, SPT, OT all provide support and encouragement to pt. She does a good job initiating all mobility and a therapist always guards/holds left leg with bed mobility supine to sit, sit to supine and STS today. Brace does not fit well . PT speaks with David from [facility] and he can come work with therapy tomorrow to look at brace again. Overall, brace intolerance limits bed mobility and lying in bed is not good for sacral wound healing. Goals Bed Mobility Goal Minimal Assistance Transfer Goal Minimal Assistance,Front Wheeled Walker Gait Goal Minimal Assistance,Front Wheel Walker Gait Distance 50 Other Goals improve bed mobility, transfers, ambulation using fWW ~ 150 ft SBA up/down 3 steps SPC SBA Days to Meet Goals 10 Frequency of Treatment Frequency Of Treatment Once a Day Treatment Plan Physical Therapy Treatment Plan Bed Mobility Training,Transfer Training,Gait Training, Therapeutic Exercise,Balance Retraining,Post Op Education, Discharge Planning,Hot or Cold Pack,Neuromuscular Re-ed, Coordination Retraining,Manual Therapy Precautions Posterior Hip Precautions No Hip Flexion > 90 degrees,No Hip Internal Rotation,No Hip Adduction Anterior Hip Precautions No Hip Extension,No Hip External Rotation Weight Bearing Status Weight Bearing Status Weight Bear as Tolerated Allowed Weight Bearing Amount (enter % RLE WBAT or #) (%) Recommendations To Nursing Amount of Assist Needed 2 Person Assist Discharge Recommendations PT Discharge Recommendations SNF Rehab Transportation Needs at Discharge Wheelchair/Cabulance,Stretcher /Ambulance
[2024-02-06] MEDS: SODIUM CHLORIDE 0.9% FLUSH 10 ML IV ×2 (13:56→20:10)
--- NOTE | 2024-02-06 14:02 | CM.DPC ---
DCP SNF Planning: Per MD, pt's pressure ulcer seems to be a little worse and Wound Consult placed for recommendations and pending wound care then pt may be stable for d/c in 1-2 days. Per PT, 2PA and needed encouragement as pt does not like using the brace and recommending SNF via BLS vs cabulance due to her wound. SW called [facility] and spoke to admissions and he reviewed and confirms they can accept. Provided best number to contact admissions directly is [phone], fax [phone], RN report [phone]. Do not need updated clinicals at this time just an update on d/c timeline and then d/c packet faxed at discharge. SW spoke to [facility] admissions and they confirm that they can accept pt as well. SW faxed updated clinicals to review. SW met bedside with pt and explained role and updated her on above. Pt states that she knows her family is wanting SNF at [facility] as she has very capable family in [place] and that family feels pt likely would not be able to ever live back at home alone. Pt leaning towards [facility] as she states that she feels she is already making progress and envisions herself being able to get back to living at home and is willing and financially capable of paying for PP CG if/when needed. Pt is not sure she can tolerate the distance to [place] at d/c and also for her follow up with Ortho post discharge. Pt states that her son Linden who flew up from [place] and staying a week is fairly overwhelmed. Pt's preference is coordinating her care with her nephew Bishnu Lilly [phone] who lives in [place] but pt states she plans to consider her SNF options and talk to family and make final SNF decision tomorrow. BLS form completed in case pt needs stretcher transport at d/. Plan: SW to follow closely for [facility] vs [facility] pending pt preference Tues and Wound Consult recommendations. BLS vs cabulance at d/c. CARLITOS Dove
--- NOTE | 2024-02-06 14:32 | P.PN_ITS ---
Subjective Subjective Date Patient Seen: 02/05/24 Time Patient Seen: 13:30 Interval history: The patient states that her coccyx area is feeling better, and has been well padded with positioning and pillows. She was able to get up and walk again yesterday. No further chest pain episodes. Seen by wound care after nursing noted possible further necrosis. Planning for SNF tomorrow. Exam Vital Signs (past 8 hours): - 02/06/24 08:00 02/06/24 09:47 02/06/24 12:00 Temperature 97.6 F 97.6 F Pulse Rate 73 70 81 Respiratory Rate 16 16 Blood Pressure 125/54 L 125/54 L 132/54 L Pulse Oximetry 96 95 Oxygen Flow Rate 0 0 Oxygen Delivery Method Room Air Oxygen Flow Rate 0 Narrative Exam Narrative: NAD, alert and oriented. Fluent speech. Lungs are clear, normal rate and effort. Heart is regular, no murmur gallop or rub. Abdomen is soft, non distended. Extremities are free of edema. Objective Labs 02/05/24 06:32 02/05/24 06:32 [facility] Social History household members: none Smoking Status: Never smoker alcohol intake: current Assessment & Plan Assessment & Plan narrative: 1. Rhabdomyolysis likely secondary to fall with prolonged immobilization. Present on admission and improved. - IV fluids have been stopped. CK was trended until <500 then stopped. Encourage oral intake. 2. 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 Present on admission and improved. s/p closed reduction in OR with orthopedics 01/30/2024. -PT / OT complicated with lack of participation and compliance with immobilizer brace -posterior hip precautions per Orthopedics, outpatient follow-up with Dr. Rafael Herbert 3. Hypertension, present on admission and active. -mildly elevated but adequate control. Continue current medications. 4. Decubitus sacral ulcer, unknown chronicity, present on admission and increasing in size due to immobility, complicated by infection with Klebsiella and Pseudomonas. - high risk for significant ulceration - continue dressing changes per nursing driven protocols. - frequent turning - surgery consultation 02/03/2024, no debridement is indicated. Pending wound care evaluation today. - started Levaquin 500 mg daily for 7 days on 02/05/2024 5. Chest pain on 02/04/2024, without recurrence, ruled out for FL on initial troponin and followup and EKG, resolved - telemetry - serial cardiac enzymes negative to date - no further evaluation warranted at this time, can consider as outpatient if symptoms recur. Dispo: -frequent turning and pillow placement for comfort and healing -daily dressing changes -start Levaquin 500 mg daily for 7 days on 02/05/2024 -anticipate detention facility tomorrow discharge, after formal wound care evaluation. -son is in from [place] to help encourage patient, care reviewed yesterday Code: Full, surrogate is patient's son DVT prophylaxis: Aspirin 81mg BID Dispo: Anticipate discharge tomorrow to SNF Discussed with case management, therapy staff today to formulate the above history, assessment and plan/ Time-Based Coding :: [TOTAL MINUTES] spent with patient and on the chart (including review of chart, obtaining history, exam, reviewing outside data, placing orders, documenting exam and treatment plan, and counseling patient) on [DATE]. Quality VTE Deep Vein Thrombosis/Pulmonary Embolism Present on Admission: No
--- NOTE | 2024-02-06 15:38 | PM.PNPO.1 ---
Subjective Subjective Date Patient Seen: 02/06/24 Time Patient Seen: 15:44 Interval history: Pt hates her hip abduction brace and refuses to wear it. Per nursing, PT is unable to work w/ pt and pt is getting worse pressure ulcers because she is not getting out of bed. Pt was to tx to SNF today, but this has been held d/t wound care issues related to ulcers. Exam Vital Signs (past 8 hours): - 02/06/24 08:00 02/06/24 09:47 02/06/24 12:00 Temperature 97.6 F 97.6 F Pulse Rate 73 70 81 Respiratory Rate 16 16 Blood Pressure 125/54 L 125/54 L 132/54 L Pulse Oximetry 96 95 Oxygen Flow Rate 0 0 Oxygen Delivery Method Room Air Oxygen Flow Rate 0 Narrative Exam Narrative: Pts calf is nonswollen and soft, but very tender to touch. 5/5 hip flexors, quadriceps, hamstrings, DF, PF, EHL on right. 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 WBAT to RLE. I discussed the hip brace issues w/ Dr Herbert, letting him know that pt is much clearer and more compliant than when either one of us saw her last week. Given this, he acquiesced to her discontinuing use of the hip abduction brace. HOWEVER, he does want her to use a knee immobilizer when walking. I discussed this with the patient an she is willing to try this. 2) Continue hip abduction pillow when in bed. If she is not a side sleeper, she can discontinue use of the pillow. 3) Can f/u w/ Dr Herbert to discuss hip revision options/plan to prevent further dislocations, if desired. This can be in 3-4 weeks, or whenever is convenient for caregivers. Based on CM note, she may go to [facility] or a facility in [place] where she has been in the past. 4) Continue ASA 81mg BID x 4 weeks for VTE prophylaxis. 5) Disposition, pain management per hospitalist service. Postoperative Procedures: Procedures Operation Date: 01/30/24 12:45 Actual Procedure Side Surgeon p Closed Reduction Dislocated Hip Left Rafael Herbert MD Postoperative day: 7 Quality VTE Deep Vein Thrombosis/Pulmonary Embolism Present on Admission: No
--- NOTE | 2024-02-06 16:25 | PM.CN ---
History of Present Illness Consult details Date Patient Seen: 02/06/24 Time Patient Seen: 12:30 Chief complaint: Fall/Confusion Narrative: The patient is an 89-year-old female with a history of hypertension who was admitted to the hospital January 30, 2024 after sustaining a fall. She was on the floor for approximately 24-36 hours before being discovered. Patient developed severe pain in the sacral region and was admitted to the hospital for further evaluation and treatment. She was found to have rhabdomyolysis and a dislocated hip. The CPK levels have improved with IV hydration. The patient was noted to have a pressure injury on her sacrum which has been treated with Allevyn and pressure offloading cushion. The patient reports the pain has improved since admission. She has had some leukocytosis but denies having any fever or chills. She has undergone closed reduction of the hip dislocation. Meds Home Medications and Allergies Home Medications Medication Instructions Recorded Confirmed Type estradiol 1 mg tablet 1 mg PO DAILY 01/30/24 01/30/24 History famotidine 20 mg tablet 20 mg PO DAILY 01/30/24 01/30/24 History hydrocodone 10 mg-acetaminophen 1 tab PO Q6H PRN pain 01/30/24 01/30/24 History 325 mg tablet levothyroxine 75 mcg tablet 75 mcg PO DAILY 01/30/24 01/30/24 History (Synthroid) montelukast 10 mg tablet 10 mg PO DAILY 01/30/24 01/30/24 History Allergies Allergy/AdvReac Type Severity Reaction Status Date / Time pollen extracts Allergy Verified 01/30/24 11:46 Review of Systems Cardiovascular Comments: No chest pain Respiratory Comments: No shortness of breath Exam Vital Signs (past 8 hours): - 02/06/24 09:47 02/06/24 12:00 02/06/24 16:00 Temperature 97.6 F 97.8 F Pulse Rate 70 81 77 Respiratory Rate 16 16 Blood Pressure 125/54 L 132/54 L 100/49 L Pulse Oximetry 95 98 Oxygen Flow Rate 0 0 Oxygen Delivery Method Room Air Oxygen Flow Rate 0 Const Other: Elderly female who is alert and oriented and in no apparent distress Resp Other: Unlabored Skin Other: Large unstageable pressure injury of sacrum with central necrosis and some fluctuance with rim of surrounding erythema Objective Labs 02/05/24 06:32 02/05/24 06:32 PFSH Social History household members: none Tobacco & Substance Use Smoking Status: Never smoker alcohol intake: current Assessment & Plan Assessment and plan (1) Pressure ulcer of sacral region, unstageable: Status: Acute Assessment & Plan narrative: Large unstageable pressure ulcer of sacral region with some central necrosis, recommend reconsideration for surgical debridement, pressure off loading with E hob cushion, turn from side to side q.2 hours, protein supplementation, observe for signs or symptoms of infection, follow up at wound center after discharge for further treatment. Time-Based Coding :: [Total of 50 minutes] spent with patient and on the chart (including review of chart, obtaining history, exam, reviewing outside data, placing orders, documenting exam and treatment plan, and counseling patient) on February 06, 2024].
--- NOTE | 2024-02-06 18:44 | PC.NURSE ---
Notified FANNY Ramey re: pt's continued declination of hip brace d/t discomfort and pain. Pt has not been out of bed in 2+ days d/t restrictive requirements of brace for ambulation. FANNY Ramey consulted MD Herbert and relayed messaged to this RN that hip brace will be d/c'ed and knee immobilizer will be ordered and can be worn instead for ambulation/OOB. This RN attempted to notify PT however they had already left for the day. FANNY Ramey updated current brace order to reflect this. Wound care consulted and changed dressing for pressure injury on coccyx. Will continue to monitor.
[2024-02-06] MEDS: MONTELUKAST 10 MG TABLET PO (20:09)
[2024-02-07] VITALS (8 sets, daily range): BP systolic 120–156; BP diastolic 45–73; PULSE 71–100; RESP 12–18; TEMP 36.4–37.3; O2SAT 94–100
--- NOTE | 2024-02-07 01:58 | PC.NURSE ---
Addendum entered by Rosemary Keating R.N. 02/07/24 05:21: changed dressings on sacral region w/ allevyn. patient tolerated well but experienced some discomfort in conjunction with repositioning. pt stated that she no longer wanted the foam abductor pillow in place while resting in bed as she feels very immobilized. vicodin PO administered. Vital signs stable. Original Note: pt is a&o x 3-4; short-term deficit with forgetfulness at times. breath sounds cta bilaterally with O2 sats of 98% on room air. active bowel sounds and passing flatus, however no bowel movement since 01/31. denies nausea. external catheter placed overnight due to limited mobility. pt has a unstageable pressure injury w/ necrosis on her sacral region that is covered with an allevyn dressing. pt is repositioned Q2H due to pressure injuries on her sacral region. pt uses a foam abductor pillow in-between legs while resting in bed. refuses scds. bed alarm on and call light is within reach.
[2024-02-07] MEDS: CYCLOBENZAPRINE 10 MG TABLET PO ×2 (04:14→15:55)
[2024-02-07] MEDS: HYDROCODONE/ACET 5/325 TABLET 1 TAB PO (05:13)
[2024-02-07] MEDS: LEVOTHYROXINE 75 MCG TABLET PO (05:33)
[2024-02-07 06:13] LABS: Add Manual Diff / Slide Review NO; Basophils Absolute Auto 0 /uL (0-100); Basophils Percent Auto 0.4 % (0-2); Eosinophils Absolute Auto 100 /uL (0-450); Eosinophils Percent Auto 1.4 % (2-4); Hematocrit 33.8 % (36-46); Hemoglobin 11.2 g/dL (12.0-16.0); Lymphocytes Absolute Auto 900 /uL (1100-4500); Lymphocytes Percent Auto 9.2 % (25-40); Mean Corpuscular HGB Conc 33.2 % (30-36); Mean Corpuscular Hemoglobin 29.9 PG (26-34); Mean Corpuscular Volume 89.9 fL (80-100); Monocytes Absolute Auto 800 /uL (0-900); Monocytes Percent Auto 7.7 % (3-14); Neutrophils Absolute Auto 8200 /uL (1500-7000); Neutrophils Percent Auto 81.3 % (50-75); Platelet Count 263 X10^3/uL (150-400); Red Blood Cell Count 3.75 X10^6/uL (4.0-5.2); Red Cell Distribution Width 15.6 % (11.6-14.8); White Blood Cell Count 10.1 X10^3/uL (4.5-11.0)
[2024-02-07 06:51] LABS: BUN Creatinine Ratio 33.3 (6-22); Blood Urea Nitrogen 27 mg/dL (7-17); Calcium 8.3 mg/dL (8.4-10.2); Carbon Dioxide 29 mmol/L (22-32); Chloride 97 mmol/L (98-107); Estimated Glomerular Filt Rate > 60 mL/min (>60); Glucose 100 mg/dL (80-110); HEMOLYSIS < 15 (0-50); Potassium 4.3 mmol/L (3.4-5.1); Sodium 125 mmol/L (137-145)
[2024-02-07] MEDS: estradioL 1 MG TABLET PO (08:30)
[2024-02-07] MEDS: ASPIRIN EC 81 MG TABLET PO ×2 (08:30→20:25)
[2024-02-07] MEDS: polyethylene glycoL 3350 17 GM POWD.PACK PO (08:30)
[2024-02-07] MEDS: lisinopriL 10 MG TABLET PO (08:30)
[2024-02-07] MEDS: DOCUSATE 100 MG CAPSULE PO ×2 (08:30→20:25)
[2024-02-07] MEDS: FAMOTIDINE 20 MG TABLET PO (08:33)
[2024-02-07] MEDS: SODIUM CHLORIDE 0.9% FLUSH 10 ML IV ×2 (08:33→20:25)
--- NOTE | 2024-02-07 10:29 | CM.DPC ---
DCP Cont. Reviewed EMR and team rounds for status updates. Per Hospitalist, pt's sodium is too high today, and she will be going to the OR for further debridement of her wound. Likely be ready tomorrow for d/c, either [facility], her son will make a decision today.
--- NOTE | 2024-02-07 10:30 | PT.IPTN ---
Current Diagnoses Pressure ulcer of sacral region, unstageable (01/30/24) Pressure ulcer of unspecified site, unspecified stage (01/30/24) Unspecified dislocation of left hip, initial encounter (01/30/24) Traumatic ischemia of muscle, initial encounter (01/30/24) Other specified postprocedural states (01/30/24) Surgery Performed Operation Date: 01/30/24 12:45 Actual Procedures p Closed Reduction Dislocated Hip(Left) - Rafael Herbetr MD Physical Therapy Treatment Note M2 PT-IP Current Condition Start: 01/30/24 15:24 Freq: NEEDED Status: Active Protocol: Document 01/31/24 09:30 AB (Rec: 01/31/24 14:11 AB [id number]) Physical Therapy Current Condition Current Condition Evaluation Date 01/31/24 Treatment Diagnosis s/p L hip dislocation s/p closed reduction; difficulty in walking Onset Date 01/30/24 M3 PT-IP Subjective Start: 01/30/24 15:24 Freq: NEEDED Status: Active Protocol: Document 02/07/24 11:44 TS (Rec: 02/07/24 11:54 TS [id number]) Subjective Physical Therapy Visit Type Type Treatment Note Visit Start Time 10:30 Visit Stop Time 11:31 Notes OT present Number of VETERINARIAN SMALL ANIMAL Visits 1 Physical Therapy Visit Comments Patient Comments Pt found resting in bed, is agreeable to work with PT. Therapy Pain Assessment Pain When Pain Assessed During Mobility Pain Present Pain Present Pain Reported M4 PT-IP Mobility and Gait Start: 01/30/24 15:24 Freq: NEEDED Status: Active Protocol: Document 02/07/24 11:44 TS (Rec: 02/07/24 11:54 TS [id number]) PT-Bed Mobility Assessment Supine to Sit Supine to Sit Moderate Assistance,2 Person Assistance,Head of Bed Elevated,Bedrails Scooting Scooting to Edge of Bed Minimal Assistance,Moderate Assistance PT-Transfer Assessment Sit to and From Stand Sit to and from Stand Maximum Assistance,2 Person Assistance,Use of Upper Extremities Equipment Transfer Assistive Device Gait Belt,Front Wheeled Walker Orthotic/Prosthetic Devices or Brace: No Transfers Transfer Destination Chair,Bedside Commode Transfer Technique Stand Step Pivot Transfer Ability Level of Assist Maximum Assistance,2 Person Assistance,Use of Upper Extremities Comments Mobility Comments Knee immobilizer fitted prior to mobility. Supine to sit ModA for LLE and uprighting trunk. STS from bed MaxA with use of FWW. She requried max cues for STS sequencing, pt has difficulty following directions at times. She performed stand step pivot to commode, pt is unsteady and requires MaxA with max cues for transfer. After use of commode pt required assist with pericare from nursing. STS from commode MaxA x2 with FWW. Chair was placed behind pt. She was left in chair, all needs met. Gait Assessment Gait Gait Assistance Required: Maximum Assistance,2 Person Assist Distance (Feet) 2 Able to Maintain Weight Bearing Status Yes During Gait Assistive Devices Assistive Device Gait Belt,Front Wheeled Walker Orthotic/Prosthetic Devices or Brace: No Gait Deviations General Gait Pattern Antalgic,Decreased Feet Clearance Factors Limiting Gait Function Factors Limiting Gait Function Decreased Activity Tolerance, Decreased Strength,Difficulty Following Directions,Limited Range of Motion,Pain,Poor Balance,Poor Safety Awareness PT-Balance Assessment Sitting Balance and Reactions Static Sitting Balance Ability Fair Dynamic Sitting Balance Ability Fair Standing Balance and Reactions Static Standing Balance Ability Poor Dynamic Standing Balance Ability Poor Device Used FWW M5 PT-IP Objective Assessments Start: 01/30/24 15:24 Freq: NEEDED Status: Active Protocol: Document 01/31/24 09:30 AB (Rec: 01/31/24 14:11 AB [id number]) Orientation Orientation/Cognition Level of Alertness Confusional State Orientation Name,Situation Language Function Ability Hard of Hearing Safety Awareness Decreased Safety Awareness Memory Description Short Term Impaired,Retirement Impaired Strength Lower Extremity Strength Assessment Left Impaired Hip 3+/5 Knee 4-/5 Muscle Tone Muscle Tone WNL Yes M6 PT-IP Treatment Start: 01/30/24 15:24 Freq: NEEDED Status: Active Protocol: Document 02/07/24 11:44 TS (Rec: 02/07/24 11:54 TS [id number]) Physical Therapy Treatment Education Education Provided Precautions,Safety M7 PT-IP Assessment and Plan Start: 01/30/24 15:24 Freq: NEEDED Status: Active Protocol: Document 02/07/24 11:44 TS (Rec: 02/07/24 11:54 TS [id number]) PT Summary Assessment and Plan Potential Rehabilitation Potential Fair Summary Impairments Pain,ROM,Strength,Balance, Coordination,Bed Mobility, Transfers,Gait,Activity Tolerance Progress Towards Goals Slow Progress due to Medical Issues,Slow Progress due to Activity Tolerance,Slow Progress - Other Assessment Summary Donya continues to make slow progress with her mobility. She is ModA x2 for bed mobility with cueing. She required MaxA x2 for STS and transfers with FWW. She has some difficulty following instructions. Knee immobilizer was no requested by ortho and was fitted to pt. She is tolerating the knee immobilizer well. PT continues to recommend SNF. Goals Bed Mobility Goal Minimal Assistance Transfer Goal Minimal Assistance,Front Wheeled Walker Gait Goal Minimal Assistance,Front Wheel Walker Gait Distance 50 Other Goals improve bed mobility, transfers, ambulation using fWW ~ 150 ft SBA up/down 3 steps SPC SBA Days to Meet Goals 10 Frequency of Treatment Frequency Of Treatment Once a Day Treatment Plan Physical Therapy Treatment Plan Bed Mobility Training,Transfer Training,Gait Training, Therapeutic Exercise,Balance Retraining,Post Op Education, Discharge Planning,Hot or Cold Pack,Neuromuscular Re-ed, Coordination Retraining,Manual Therapy Precautions Posterior Hip Precautions No Hip Flexion > 90 degrees,No Hip Internal Rotation,No Hip Adduction Anterior Hip Precautions No Hip Extension,No Hip External Rotation Weight Bearing Status Weight Bearing Status Weight Bear as Tolerated Allowed Weight Bearing Amount (enter % RLE WBAT or #) (%) Recommendations To Nursing Amount of Assist Needed 2 Person Assist Discharge Recommendations PT Discharge Recommendations SNF Rehab Transportation Needs at Discharge Wheelchair/Cabulance,Stretcher /Ambulance
[2024-02-07] MEDS: levoFLOXacin 250 MG TABLET 750 MG PO (10:55)
--- NOTE | 2024-02-07 12:17 | OT.IP.TRT ---
Current Diagnoses Pressure ulcer of sacral region, unstageable (01/30/24) Pressure ulcer of unspecified site, unspecified stage (01/30/24) Unspecified dislocation of left hip, initial encounter (01/30/24) Traumatic ischemia of muscle, initial encounter (01/30/24) Other specified postprocedural states (01/30/24) Surgery Performed Operation Date: 01/30/24 12:45 Actual Procedures p Closed Reduction Dislocated Hip(Left) - Rafael Herbert MD Occupational Therapy Treatment Note M2 OT-IP Current Condition Start: 01/31/24 14:15 Freq: Status: Active Protocol: Document 01/31/24 14:15 [facility] (Rec: 01/31/24 14:33 [facility] [id number]) Occupational Therapy Current Condition Current Condition Evaluation Date 01/31/24 Treatment Diagnosis FAll S/P Left hip dislocations Diagnosis Onset Date 01/30/24 Post Operative Precautions Posterior Hip Precautions No Hip Flexion > 90 degrees,No Hip Internal Rotation,No Hip Adduction Anterior Hip Precautions No Hip Extension,No Hip External Rotation Other Precautions Hip abductions brace when out of bed and pillow on in bed. Weight Bearing Status Weight Bearing Status Weight Bear as Tolerated M3 OT- IP Subjective and Pain Start: 01/31/24 14:15 Freq: Status: Active Protocol: Document 02/07/24 10:10 [facility] (Rec: 02/07/24 12:17 [facility] [id number]) OT- Subjective Occupational Therapy Visit Type Visit Start Time 10:10 Visit Stop Time 11:17 Occupational Therapy Visit Comments Patient Comments Pt agreed to get up and use the BSC. Able to issue pt knee immobilizer on as pt has orders to dc the hip abductor brace and use the knee immobilizer instead. Patient/Caregiver Goals To get better. OT Pain Assessment Pain When Pain Assessed During Mobility Pain Present Pain Present Pain Reported M4 OT- IP ADL's Start: 01/31/24 14:15 Freq: Status: Active Protocol: Document 02/07/24 10:10 [facility] (Rec: 02/07/24 12:17 [facility] [id number]) OT [id number] Comments OT Self-Feeding Comments not meal time OT ADL-Grooming Comments OT Grooming Comments Assisted pt to brush the back on her hair. OT ADL-Oral Care Comments Oral Care Comments not performed OT ADL-Dressing General Eval Lower Body Dressing Ability Total Assistance Areas Needing Assistance Orthosis/Prosthesis Comments OT Dressing Comments Total assist for knee immobilizer. OT ADL-Toileting General Evaluation Toileting Ability Maximum Assistance,Total Assistance Comments OT Toileting Comments Assist to all hygiene needs while on the BSC. OT ADL-Bathing Comments OT Bathing Comments Sponge bath more appropriate otherwise use of rolling shower chair. M5 OT- IP IADL's Start: 01/31/24 14:15 Freq: Status: Active Protocol: Document 01/31/24 14:15 [facility] (Rec: 01/31/24 14:33 [facility] [id number]) OT-Instrumental Activities of Daily Living Deficits IADL Deficits Identified Deficits Home Safety Awareness Awareness of Need for Assistance at Home Good Awareness Home Safety Comments Pt is well aware that she will not be able to care for herself and after skilled rehab looking to hire assist to stay with her. M6 OT- IP Functional Cognition Start: 01/31/24 14:15 Freq: Status: Active Protocol: Document 02/07/24 10:10 [facility] (Rec: 02/07/24 12:17 [facility] [id number]) Cognitive Factors Limiting Selfcare Function Cognitive Comments Cognitive Assessment Comments Pt still not able to recall her posterior and anterior precautions. Pt needing concrete simple cues to follow . M7 OT- IP Mobility and Balance Start: 01/31/24 14:15 Freq: Status: Active Protocol: Document 02/07/24 10:10 [facility] (Rec: 02/07/24 12:17 [facility] [id number]) OT- Bed Mobility Assessment Supine to Sit Supine to Sit Assist Moderate Assistance,2 Person Assistance OT-Transfer Assessment Sit to and From Stand Sit to and from Stand Maximum Assistance,2 Person Assistance Transfers Transfer Ability Maximum Assistance,2 Person Assistance Technique Transfer Destination Bed,Bedside Commode,Chair Transfer Technique Stand Step Pivot Devices Transfer Assistive Devices Gait Belt,Front Wheeled Walker Comments Mobility Comments MAX AX 2 to stand to FWW so pt with assist able to get her LLE underneath her and assist to help slide the LLE out when sitting down as pt having the knee immobilizer on. At this time pt just able to transfer to BS and had BSC switched to the recliner afterwards. OT- Balance Assessment Sitting Balance and Reactions Static Sitting Balance Ability Good Dynamic Sitting Balance Ability Fair Standing Balance and Reactions Static Standing Balance Ability Poor Dynamic Standing Balance Ability Poor M8 OT- IP Objective Assessments Start: 01/31/24 14:15 Freq: Status: Active Protocol: Document 01/31/24 14:15 [facility] (Rec: 01/31/24 14:33 [facility] [id number]) OT Gross Range of Motion Upper Extremity Range of Motion Assessment Within Functional Limits OT Strength Upper Extremity Strength Assessment Within Functional Limits Comments Strength Comments WFL for age and lifestyle. M9 OT- IP Assessment and Plan Start: 01/31/24 14:15 Freq: Status: Active Protocol: Document 02/07/24 10:10 [facility] (Rec: 02/07/24 12:17 [facility] [id number]) OT Summary Assessment and Plan Potential Rehabilitation Potential Good Analytic Complexity at Evaluation Moderate Summary OT Impairments Pain,Strength,Balance, Functional Cognition, Functional Mobility,Grooming, Dressing,Toileting,Bathing, Toilet Transfers,Shower Transfers,Activity Tolerance Progress Towards Goals Slow Progress due to Pain,Slow Progress due to Medical Issues,Slow Progress due to Activity Tolerance Assessment Summary Pt able to participate with toileting needs today. Able to issue and fit knee immobilizer for pt as abductor brace order discharged. Pt to go to skilled rehab when medically stable. Touched base with nursing for skin checks for the brace, pt initially complaining of pain at her ankle, but brace readjusted and reported no pain. Goals Self-Feeding Goal Independent Grooming Goal Independent Dressing Goal Moderate Assistance Toileting Goal Minimal Assistance Bathing Goal Moderate Assistance Toilet Transfer Goal Standby Assistance Shower Transfer Goal Contact Guard Assistance Days to Meet Goals 25 Frequency of Treatment Frequency Of Treatment Once a Day Treatment Plan OT Treatment Plan ADL Training,Functional Cognition Training,Functional Mobility,Patient/Family Education,Discharge Planning Other Treatment Recommendations and Next Pt to recall her hip Treatment Focus precautions 50% of the time. Discharge Recommendations OT Discharge Recommendations SNF Rehab Transportation Needs at Discharge Stretcher/Ambulance
--- NOTE | 2024-02-07 12:29 | OT.IPNOTE ---
Per orders knee immobilizer brace on when walking. Attempted to take off the knee immobilizer and pt states wants to keep it on and not complaining of any pain. Able to leave a note for nursing. Pt however is sensitive to the touch at her ankles.
[2024-02-07] MEDS: HYDROCODONE/ACET 10/325 TABLET 1 TAB PO ×2 (12:48→20:53)
--- NOTE | 2024-02-07 14:17 | PM.PN.1 ---
Subjective Subjective Interval history: The patient states that her back pain is a bit worse today. Otherwise feeling well. Sodium down to 125, ordered urine studies to further elucidate etiology given euvolemic appearance, awaiting these to be sent but difficulty in capturing adequate urine to be sent today. Exam Vital Signs (past 8 hours): - 02/07/24 08:00 02/07/24 08:30 02/07/24 12:00 Temperature 99 F 97.6 F Pulse Rate 71 71 71 Respiratory Rate 18 18 Blood Pressure 143/54 H 143/54 H 125/45 L Pulse Oximetry 100 97 Oxygen Delivery Method Room Air Oxygen Flow Rate 0 Narrative Exam Narrative: NAD, alert and oriented. Fluent speech. Lungs are clear, normal rate and effort. Heart is regular, no murmur gallop or rub. Abdomen is soft, non distended. Extremities have b/l non pitting edema (lower). Objective Labs 02/07/24 06:00 02/07/24 06:00 Labs: Laboratory Results - last 24 hr 02/07/24 06:00 WBC 10.1 RBC 3.75 L Hgb 11.2 L Hct 33.8 L MCV 89.9 MCH 29.9 MCHC 33.2 RDW 15.6 H Plt Count 263 Neut % (Auto) 81.3 H Lymph % (Auto) 9.2 L Newton % (Auto) 7.7 Eos % (Auto) 1.4 L Baso % (Auto) 0.4 Neut # (Auto) 8200 H Lymph # (Auto) 900 L Newton # (Auto) 800 Eos # (Auto) 100 Baso # (Auto) 0 Sodium 125 L Potassium 4.3 Chloride 97 L Carbon Dioxide 29 BUN 27 H Creatinine 0.81 Estimated GFR > 60 BUN/Creatinine Ratio 33.3 H Glucose 100 Calcium 8.3 L PFSH Social History household members: none Smoking Status: Never smoker alcohol intake: current Assessment & Plan Assessment & Plan narrative: 1. Rhabdomyolysis likely secondary to fall with prolonged immobilization. Present on admission and improved. - IV fluids have been stopped. CK was trended until <500 then stopped. Encourage oral intake. 2. 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 Present on admission and improved. s/p closed reduction in OR with orthopedics 01/30/2024. -PT / OT complicated with lack of participation and compliance with immobilizer brace -posterior hip precautions per Orthopedics, outpatient follow-up with Dr. Rafael Herbert 3. Hypertension, present on admission and active. -mildly elevated previously but adequate control now. Continue current medications. 4. Decubitus sacral ulcer, unknown chronicity, present on admission and increasing in size due to immobility, complicated by infection with Klebsiella and Pseudomonas. - high risk for significant ulceration - continue dressing changes per nursing driven protocols. - frequent turning - surgery consultation 02/03/2024, no debridement is indicated. Wound care recommended repeat evaluation. Will re-discuss with surgeon today. - started Levaquin 500 mg daily for 7 days on 02/05/2024 5. Chest pain on 02/04/2024, without recurrence, ruled out for CO on initial troponin and followup and EKG, resolved - telemetry can be stopped. - serial cardiac enzymes negative to date - no further evaluation warranted at this time, can consider as outpatient if symptoms recur. 6. Hyponatremia - worsened over the past few days, now 125. Unclear etiology. Plan: -frequent turning and pillow placement for comfort and healing -daily dressing changes -started Levaquin 500 mg daily for 7 days on 02/05/2024 -anticipate [facility] facility discharge in the next few days, once hyponatremia improved and discussion with surgery. -son is in from [place] to help encourage patient, care reviewed yesterday Code: Full, surrogate is patient's son DVT prophylaxis: Aspirin 81mg BID Dispo: Anticipate discharge in the next 1-2 days to SNF, pending sodium improvement. Likely rossi based on discussions with family today. Discussed with case management, therapy staff and family today to formulate the above history, assessment and plan/ Time-Based Coding :: [TOTAL MINUTES] spent with patient and on the chart (including review of chart, obtaining history, exam, reviewing outside data, placing orders, documenting exam and treatment plan, and counseling patient) on [DATE]. Quality VTE Deep Vein Thrombosis/Pulmonary Embolism Present on Admission: No
[2024-02-07 14:28] LABS: BUN Creatinine Ratio 37.5 (6-22); Blood Urea Nitrogen 30 mg/dL (7-17); Calcium 8.4 mg/dL (8.4-10.2); Carbon Dioxide 28 mmol/L (22-32); Chloride 97 mmol/L (98-107); Estimated Glomerular Filt Rate > 60 mL/min (>60); Glucose 99 mg/dL (80-110); HEMOLYSIS < 15 (0-50); Potassium 4.5 mmol/L (3.4-5.1); Sodium 130 mmol/L (137-145)
--- NOTE | 2024-02-07 14:29 | PM.PNPO.1 ---
Subjective Subjective Date Patient Seen: 02/07/24 Time Patient Seen: 14:29 Interval history: No new complaints Exam Vital Signs (past 8 hours): - 02/07/24 08:00 02/07/24 08:30 02/07/24 12:00 Temperature 99 F 97.6 F Pulse Rate 71 71 71 Respiratory Rate 18 18 Blood Pressure 143/54 H 143/54 H 125/45 L Pulse Oximetry 100 97 Oxygen Delivery Method Room Air Oxygen Flow Rate 0 Narrative Exam Narrative: Pleasant 81-year-old female resting comfortably in bedside chair in no apparent distress. Objective Labs 02/07/24 06:00 02/07/24 14:03 Labs: Laboratory Results - last 24 hr 02/07/24 02/07/24 06:00 14:03 WBC 10.1 RBC 3.75 L Hgb 11.2 L Hct 33.8 L MCV 89.9 MCH 29.9 MCHC 33.2 RDW 15.6 H Plt Count 263 Neut % (Auto) 81.3 H Lymph % (Auto) 9.2 L [place] % (Auto) 7.7 Eos % (Auto) 1.4 L Baso % (Auto) 0.4 Neut # (Auto) 8200 H Lymph # (Auto) 900 L [place] # (Auto) 800 Eos # (Auto) 100 Baso # (Auto) 0 Sodium 125 L 130 L Potassium 4.3 4.5 Chloride 97 L 97 L Carbon Dioxide 29 28 BUN 27 H 30 H Creatinine 0.81 0.80 Estimated GFR > 60 > 60 BUN/Creatinine Ratio 33.3 H 37.5 H Glucose 100 99 Calcium 8.3 L 8.4 PFSH Social History household members: none Smoking Status: Never smoker alcohol intake: current Assessment & Plan Post-op Postoperative Procedures: Procedures Operation Date: 01/30/24 12:45 Actual Procedure Side Surgeon p Closed Reduction Dislocated Hip Left Rafael Herbert MD Postoperative status narrative: Status post closed reduction left hip Postoperative plan narrative: Mobilize with physical therapy. May discontinue hip brace per Dr. Herbert however she needs to use a knee immobilizer when ambulating. Continue hip abduction pillow when in bed Follow up outpatient orthopedic clinic to discuss hip revision options if desired per patient. Aspirin 81 mg b.i.d. x4 weeks for DVT prophylaxis Disposition per hospitalist Quality VTE Deep Vein Thrombosis/Pulmonary Embolism Present on Admission: No
[2024-02-07 19:04] LABS: Sodium Urine Random 11 mmol/L (30-90)
[2024-02-07] MEDS: MONTELUKAST 10 MG TABLET PO (20:25)
--- NOTE | 2024-02-07 23:23 | PC.NURSE ---
Patient is alert and oriented except unable to state day of month and had some difficulty with place. Sometimes has difficulty finding right word to express herself. Breath sounds CTA with RA sat of 94%; respirations shallow. HRR w/elevated BP of 156/73. Denied nausea. BT present but hypoactive and denied passing flatus. Due to impaired mobility does have external catheter in place at night; denied any dysuria. Is being repositioned q2h due to sacral decubiti; allevyn dressings are CDI. When out of bed uses walker, 2 assists and wears knee brace; foam abductor pillow in place when in bed. CMS is intact bilaterally. Refused SCD's. Did complain of generalized 8/10 pain earlier tonight and was medicated with Vicodin and has been mostly asleep since that time. Fall risk score is high and bed alarm is activated.
--- NOTE | 2024-02-08 05:12 | PC.NURSE ---
Note for 02/02 ~399 Performed dressing change, noted a foul odor and increased drainage. Took updated wound photos (see note) and took a swab culture. Provider made aware, and passed on to ortho as well. Reinforced with pt the importance of turning and repositioning.
[2024-02-08] MEDS: LEVOTHYROXINE 75 MCG TABLET PO (06:00)
[2024-02-08 06:14] VITALS: BP 156/77; PULSE 72; RESP 18; TEMP 37; O2SAT 96
[2024-02-08 07:25] LABS: Add Manual Diff / Slide Review NO; Basophils Absolute Auto 0 /uL (0-100); Basophils Percent Auto 0.4 % (0-2); Eosinophils Absolute Auto 100 /uL (0-450); Hematocrit 35.3 % (36-46); Hemoglobin 11.6 g/dL (12.0-16.0); Lymphocytes Absolute Auto 800 /uL (1100-4500); Lymphocytes Percent Auto 6.4 % (25-40); Mean Corpuscular HGB Conc 32.9 % (30-36); Mean Corpuscular Hemoglobin 29.4 PG (26-34); Mean Corpuscular Volume 89.3 fL (80-100); Monocytes Absolute Auto 400 /uL (0-900); Monocytes Percent Auto 3.5 % (3-14); Neutrophils Absolute Auto 11100 /uL (1500-7000); Neutrophils Percent Auto 88.7 % (50-75); Platelet Count 317 X10^3/uL (150-400); Red Blood Cell Count 3.96 X10^6/uL (4.0-5.2); Red Cell Distribution Width 15.5 % (11.6-14.8); White Blood Cell Count 12.5 X10^3/uL (4.5-11.0)
[2024-02-08 07:40] LABS: BUN Creatinine Ratio 39.3 (6-22); Blood Urea Nitrogen 33 mg/dL (7-17); Calcium 8.5 mg/dL (8.4-10.2); Carbon Dioxide 30 mmol/L (22-32); Chloride 97 mmol/L (98-107); Estimated Glomerular Filt Rate > 60 mL/min (>60); Glucose 84 mg/dL (80-110); HEMOLYSIS < 15 (0-50); Potassium 4.5 mmol/L (3.4-5.1); Sodium 130 mmol/L (137-145)
[2024-02-08 08:00] VITALS: BP 146/62; PULSE 87; RESP 12; TEMP 36.8; O2SAT 99
--- NOTE | 2024-02-08 08:56 | PM.PNPO.1 ---
Subjective Subjective Date Patient Seen: 02/08/24 Time Patient Seen: 08:56 Interval history: Patient is found sitting up eating breakfast today. She has no pain with regards to her hip. She has been finally able to work with therapy after discontinuing trying to use the abduction brace. She is able to tolerate the knee immobilizer and at times worse while sitting. She has been treated by our hospitalist with regard to concerns of developing a decubitus ulcer over her sacrum and has started precautions with regard to developing ulceration over her left heel. Hospitalist also treating hyponatremia. Exam Vital Signs (past 8 hours): - 02/08/24 06:14 02/08/24 08:00 Temperature 98.6 F 98.2 F Pulse Rate 72 87 Respiratory Rate 18 12 Blood Pressure 156/77 H 146/62 H Pulse Oximetry 96 99 Oxygen Flow Rate 0 0 Oxygen Delivery Method Room Air Oxygen Flow Rate 0 Narrative Exam Narrative: Removing the left heel pad reveals no ulcers at this time. Posterior thigh and calf is soft and nontender to touch. 5/5 hip flexors, quadriceps, hamstrings, DF, PF, EHL on left. Const General: cooperative and healthy appearing Objective Labs 02/08/24 07:05 02/08/24 07:05 Labs: Laboratory Results - last 24 hr 02/07/24 02/07/24 02/08/24 14:03 18:45 07:05 WBC 12.5 H RBC 3.96 L Hgb 11.6 L Hct 35.3 L MCV 89.3 MCH 29.4 MCHC 32.9 RDW 15.5 H Plt Count 317 Neut % (Auto) 88.7 H Lymph % (Auto) 6.4 L [place] % (Auto) 3.5 Eos % (Auto) 1.0 L Baso % (Auto) 0.4 Neut # (Auto) 74794 H Lymph # (Auto) 800 L [place] # (Auto) 400 Eos # (Auto) 100 Baso # (Auto) 0 Sodium 130 L 130 L Potassium 4.5 4.5 Chloride 97 L 97 L Carbon Dioxide 28 30 BUN 30 H 33 H Creatinine 0.80 0.84 Estimated GFR > 60 > 60 BUN/Creatinine Ratio 37.5 H 39.3 H Glucose 99 84 Calcium 8.4 8.5 Ur Random Sodium 11 L PFSH Social History household members: none Smoking Status: Never smoker alcohol intake: current Assessment & Plan Post-op Postoperative Procedures: Procedures Operation Date: 01/30/24 12:45 Actual Procedure Side Surgeon p Closed Reduction Dislocated Hip Left Rafael Herbert MD Postoperative day: 9 Postoperative status: doing well Postoperative status narrative: Status post closed reduction left hip Postoperative plan narrative: Mobilize with physical therapy. May discontinue hip brace per Dr. Herbert however she needs to use a knee immobilizer when ambulating. She does not need to utilize the knee immobilizer when in bed or sitting in the chair. Continue hip abduction pillow when in bed. Follow up outpatient orthopedic clinic to discuss hip revision options if desired per patient. Aspirin 81 mg b.i.d. x4 weeks for DVT prophylaxis Continue with position changes. Disposition per hospitalist Time Spent With Patient Time with patient: 15-24 minutes Quality VTE Deep Vein Thrombosis/Pulmonary Embolism Present on Admission: No
[2024-02-08 09:01] VITALS: BP 146/62
[2024-02-08] MEDS: DOCUSATE 100 MG CAPSULE PO ×2 (09:01→20:12)
[2024-02-08] MEDS: lisinopriL 10 MG TABLET PO (09:01)
[2024-02-08] MEDS: estradioL 1 MG TABLET PO (09:01)
[2024-02-08] MEDS: ASPIRIN EC 81 MG TABLET PO ×2 (09:01→20:12)
[2024-02-08] MEDS: FAMOTIDINE 20 MG TABLET PO (09:03)
[2024-02-08] MEDS: HYDROCODONE/ACET 5/325 TABLET 1 TAB PO ×2 (09:03→19:08)
[2024-02-08] MEDS: SODIUM CHLORIDE 0.9% FLUSH 10 ML IV ×2 (09:04→20:12)
--- NOTE | 2024-02-08 10:33 | CM.DPC ---
DCP Cont. Reviewed EMR and team rounds for status updates. [facility] the steward/stewardess dining room, Bj. Per his request, sent wound photos and notes for him to review and make sure that he has the proper air mattress for her. He will call this MANAGER LEGAL back later this morning and continue the d/c coordination.
--- NOTE | 2024-02-08 11:23 | P.CONS_ITS ---
History of Present Illness Consult details Date Patient Seen: 02/08/24 Time Patient Seen: 11:23 Chief complaint: Fall/Confusion Reason for consult: sacral decubitus, hip dislocation Requesting provider: Miki Bowden Narrative: Failure to thrive, hip dislocation. Protein malnutrition. And new sacral pressure ulcers. Meds Home Medications and Allergies Home Medications Medication Instructions Recorded Confirmed Type estradiol 1 mg tablet 1 mg PO DAILY 01/30/24 01/30/24 History famotidine 20 mg tablet 20 mg PO DAILY 01/30/24 01/30/24 History hydrocodone 10 mg-acetaminophen 1 tab PO Q6H PRN pain 01/30/24 01/30/24 History 325 mg tablet levothyroxine 75 mcg tablet 75 mcg PO DAILY 01/30/24 01/30/24 History (Synthroid) montelukast 10 mg tablet 10 mg PO DAILY 01/30/24 01/30/24 History Allergies Allergy/AdvReac Type Severity Reaction Status Date / Time pollen extracts Allergy Verified 01/30/24 11:46 Review of Systems Review of Systems Narrative: tries to eat well. Pain in left hip with manipulation. ROS: Yes All systems reviewed with the patient and are negative except as otherwise documented Exam Vital Signs (past 8 hours): - 02/08/24 06:14 02/08/24 08:00 02/08/24 09:01 Temperature 98.6 F 98.2 F Pulse Rate 72 87 Respiratory Rate 18 12 Blood Pressure 156/77 H 146/62 H 146/62 H Pulse Oximetry 96 99 Oxygen Flow Rate 0 0 Oxygen Delivery Method Room Air Oxygen Flow Rate 0 Const General: cooperative and frail appearing Nutritional Appearance: cachectic and malnourished Other: facial and hand muscle wasting. HENMT Head: normocephalic and atraumatic Eyes Sclera: sclerae normal Neck Neck: trachea midline Resp Effort & Inspection: normal respiratory effort and able to speak in complete sentences Cardio Rate: regular rate Rhythm: regular rhythm GI Palpation: soft and No tender Back/Spine/Pelvis Thoracic/Lumbar Spine: scoliosis Coccyx: tenderness and other (2 pressure ulcers, the lower one is early stage 2 and the upper stage 4) Skin General: atrophy Neuro General: patient alert, patient awake and patient oriented x3 Cognition: normal cognition Psych Mental Status: mental status grossly normal Affect: normal affect Judgment: judgment good Objective Labs 02/08/24 07:05 02/08/24 07:05 Labs: Laboratory Results - last 24 hr 02/07/24 02/07/24 02/08/24 14:03 18:45 07:05 WBC 12.5 H RBC 3.96 L Hgb 11.6 L Hct 35.3 L MCV 89.3 MCH 29.4 MCHC 32.9 RDW 15.5 H Plt Count 317 Neut % (Auto) 88.7 H Lymph % (Auto) 6.4 L [place] % (Auto) 3.5 Eos % (Auto) 1.0 L Baso % (Auto) 0.4 Neut # (Auto) 11652 H Lymph # (Auto) 800 L [place] # (Auto) 400 Eos # (Auto) 100 Baso # (Auto) 0 Sodium 130 L 130 L Potassium 4.5 4.5 Chloride 97 L 97 L Carbon Dioxide 28 30 BUN 30 H 33 H Creatinine 0.80 0.84 Estimated GFR > 60 > 60 BUN/Creatinine Ratio 37.5 H 39.3 H Glucose 99 84 Calcium 8.4 8.5 Ur Random Sodium 11 L PFSH Social History household members: none Tobacco & Substance Use Smoking Status: Never smoker alcohol intake: current Assessment & Plan Assessment & Plan narrative: Malnutrition with dietary working for high protein diet sacral decubitus x2 Plan: OR tomorrow for debridement and possible wound vac. Time-Based Coding :: 30 Total minutes spent with patient and on the chart (including review of chart, obtaining history, exam, reviewing outside data, placing orders, documenting exam and treatment plan, and counseling patient) on 02/08/24
--- NOTE | 2024-02-08 11:35 | OT.IP.TRT ---
Current Diagnoses Pressure ulcer of sacral region, unstageable (01/30/24) Pressure ulcer of unspecified site, unspecified stage (01/30/24) Unspecified dislocation of left hip, initial encounter (01/30/24) Traumatic ischemia of muscle, initial encounter (01/30/24) Other specified postprocedural states (01/30/24) Surgery Performed Operation Date: 01/30/24 12:45 Actual Procedures p Closed Reduction Dislocated Hip(Left) - Rafael Herbert MD Operation Date: 02/09/24 14:00 <No data on this case meets the specified criteria> Occupational Therapy Treatment Note M2 OT-IP Current Condition Start: 01/31/24 14:15 Freq: Status: Active Protocol: Document 01/31/24 14:15 [facility] (Rec: 01/31/24 14:33 [facility] [id number]) Occupational Therapy Current Condition Current Condition Evaluation Date 01/31/24 Treatment Diagnosis FAll S/P Left hip dislocations Diagnosis Onset Date 01/30/24 Post Operative Precautions Posterior Hip Precautions No Hip Flexion > 90 degrees,No Hip Internal Rotation,No Hip Adduction Anterior Hip Precautions No Hip Extension,No Hip External Rotation Other Precautions Knee immobilizer on when walking, abductor pillow in bed. Weight Bearing Status Weight Bearing Status Weight Bear as Tolerated M3 OT- IP Subjective and Pain Start: 01/31/24 14:15 Freq: Status: Active Protocol: Document 02/08/24 13:27 [facility] (Rec: 02/08/24 13:34 [facility] [id number]) OT- Subjective Occupational Therapy Visit Type Type Treatment Note Visit Start Time 11:35 Visit Stop Time 12:31 Occupational Therapy Visit Comments Patient Comments Pt agreed to get up to try and use the BSC. Patient/Caregiver Goals To get better. OT Pain Assessment Pain When Pain Assessed At Rest Pain Present Pain Present Pain Reported Location generalized Intensity 6 Scale Used Numeric (0 - 10) M4 OT- IP ADL's Start: 01/31/24 14:15 Freq: Status: Active Protocol: Document 02/08/24 13:27 [facility] (Rec: 02/08/24 13:34 [facility] [id number]) OT [id number] Comments OT Self-Feeding Comments not meal time OT ADL-Grooming Comments OT Grooming Comments not performed OT ADL-Oral Care Comments Oral Care Comments not performed OT ADL-Dressing General Eval Lower Body Dressing Ability Total Assistance Areas Needing Assistance Underpants/Brief,Socks, Orthosis/Prosthesis Comments OT Dressing Comments Total assist for knee immobilizer , socks, and brief . OT ADL-Toileting General Evaluation Toileting Ability Maximum Assistance,Total Assistance Comments OT Toileting Comments Assist for all hygiene needs and brief management. Able to come to stand with MAX AX 2 and another person to assist for wipe. OT ADL-Bathing Comments OT Bathing Comments Sponge bath more appropriate otherwise use of rolling shower chair. M5 OT- IP IADL's Start: 01/31/24 14:15 Freq: Status: Active Protocol: Document 01/31/24 14:15 [facility] (Rec: 01/31/24 14:33 [facility] [id number]) OT-Instrumental Activities of Daily Living Deficits IADL Deficits Identified Deficits Home Safety Awareness Awareness of Need for Assistance at Home Good Awareness Home Safety Comments Pt is well aware that she will not be able to care for herself and after skilled rehab looking to hire assist to stay with her. M6 OT- IP Functional Cognition Start: 01/31/24 14:15 Freq: Status: Active Protocol: Document 02/08/24 13:27 [facility] (Rec: 02/08/24 13:34 [facility] [id number]) Cognitive Factors Limiting Selfcare Function Cognitive Ability Attention Span Ability Capable of Focused Attention, Capable of Sustained Attention Ability to Follow Commands Able to Follow One Step Commands with Increased Time, Able to Follow One Step Commands with Repetition Memory Description Short Term Impaired Cognitive Comments Cognitive Assessment Comments Pt not able to recall her precautions. However pt did recall what the PA told and wrote down for her that the knee immobilizer on while walking and can be off while sitting or lying down. M7 OT- IP Mobility and Balance Start: 01/31/24 14:15 Freq: Status: Active Protocol: Document 02/08/24 13:27 [facility] (Rec: 02/08/24 13:34 [facility] [id number]) OT- Bed Mobility Assessment Supine to Sit Supine to Sit Assist Moderate Assistance,2 Person Assistance OT-Transfer Assessment Sit to and From Stand Sit to and from Stand Maximum Assistance,2 Person Assistance Transfers Transfer Ability Maximum Assistance,2 Person Assistance Technique Transfer Destination Bed,Bedside Commode,Chair Devices Transfer Assistive Devices Gait Belt,Front Wheeled Walker Comments Mobility Comments MAX AX 2 to stand and assist ti help slide her LLE forwards and back whe coming to sitting or standing position. Once on her feet pt able to move better, but still needing assist for balance, guiding the FWW,and for safety cues. OT- Balance Assessment Sitting Balance and Reactions Static Sitting Balance Ability Good Dynamic Sitting Balance Ability Fair Standing Balance and Reactions Static Standing Balance Ability Poor Dynamic Standing Balance Ability Poor M8 OT- IP Objective Assessments Start: 01/31/24 14:15 Freq: Status: Active Protocol: Document 01/31/24 14:15 [facility] (Rec: 01/31/24 14:33 [facility] [id number]) OT Gross Range of Motion Upper Extremity Range of Motion Assessment Within Functional Limits OT Strength Upper Extremity Strength Assessment Within Functional Limits Comments Strength Comments WFL for age and lifestyle. M9 OT- IP Assessment and Plan Start: 01/31/24 14:15 Freq: Status: Active Protocol: Document 02/08/24 13:27 [facility] (Rec: 02/08/24 13:34 [facility] [id number]) OT Summary Assessment and Plan Potential Rehabilitation Potential Good Analytic Complexity at Evaluation Moderate Summary OT Impairments Pain,Strength,Balance, Functional Cognition, Functional Mobility,Grooming, Dressing,Toileting,Bathing, Toilet Transfers,Shower Transfers,Activity Tolerance Progress Towards Goals Progressing Toward Goals,Slow Progress due to Pain,Slow Progress due to Medical Issues Goals Self-Feeding Goal Independent Grooming Goal Independent Dressing Goal Moderate Assistance Toileting Goal Minimal Assistance Bathing Goal Moderate Assistance Toilet Transfer Goal Standby Assistance Shower Transfer Goal Contact Guard Assistance Days to Meet Goals 25 Frequency of Treatment Frequency Of Treatment Once a Day Treatment Plan OT Treatment Plan ADL Training,Functional Cognition Training,Functional Mobility,Patient/Family Education,Discharge Planning Other Treatment Recommendations and Next Pt to recall her hip Treatment Focus precautions 50% of the time. Shower Discharge Recommendations OT Discharge Recommendations SNF Rehab Transportation Needs at Discharge Stretcher/Ambulance
--- NOTE | 2024-02-08 11:35 | PT.IPTN ---
Current Diagnoses Pressure ulcer of sacral region, unstageable (01/30/24) Pressure ulcer of unspecified site, unspecified stage (01/30/24) Unspecified dislocation of left hip, initial encounter (01/30/24) Traumatic ischemia of muscle, initial encounter (01/30/24) Other specified postprocedural states (01/30/24) Surgery Performed Operation Date: 01/30/24 12:45 Actual Procedures p Closed Reduction Dislocated Hip(Left) - Rafael Herbert MD Operation Date: 02/09/24 14:00 <No data on this case meets the specified criteria> Physical Therapy Treatment Note M2 PT-IP Current Condition Start: 01/30/24 15:24 Freq: NEEDED Status: Active Protocol: Document 01/31/24 09:30 [facility] (Rec: 01/31/24 14:11 AB [id number]) Physical Therapy Current Condition Current Condition Evaluation Date 01/31/24 Treatment Diagnosis s/p L hip dislocation s/p closed reduction; difficulty in walking Onset Date 01/30/24 M3 PT-IP Subjective Start: 01/30/24 15:24 Freq: NEEDED Status: Active Protocol: Document 02/08/24 12:33 TS (Rec: 02/08/24 12:44 TS [id number]) Subjective Physical Therapy Visit Type Type Treatment Note Visit Start Time 11:35 Visit Stop Time 12:31 Number of TELEPHONE ANSWERING SERVICE OPERATOR Visits 2 Physical Therapy Visit Comments Patient Comments Pt found resting in bed, is agreeable to PT. Therapy Pain Assessment Pain When Pain Assessed During Mobility Pain Present Pain Present Pain Reported M4 PT-IP Mobility and Gait Start: 01/30/24 15:24 Freq: NEEDED Status: Active Protocol: Document 02/08/24 12:33 TS (Rec: 02/08/24 12:44 TS [id number]) PT-Bed Mobility Assessment Supine to Sit Supine to Sit Moderate Assistance,2 Person Assistance,Head of Bed Elevated,Bedrails Scooting Scooting to Edge of Bed Moderate Assistance PT-Transfer Assessment Sit to and From Stand Sit to and from Stand Maximum Assistance,2 Person Assistance,Use of Upper Extremities Equipment Transfer Assistive Device Gait Belt,Front Wheeled Walker Orthotic/Prosthetic Devices or Brace: No Transfers Transfer Destination Chair,Bedside Commode Transfer Technique Stand Step Pivot Transfer Ability Level of Assist Maximum Assistance,2 Person Assistance,Use of Upper Extremities Comments Mobility Comments Pt performed ankle pumps, quad sets, glute sets and heel slides prior to mobility. Knee immobilizer donned prior to mobility. Supine to sit HOB elevated 30D ModA x2 for uprighting trunk and LLE assistance. STS x3 MaxA x2, she requires cues for feet underneath her, she is incontinent coming into standing. Stand step pivot to commode MaxA x2 with max cues and FWW management. Pt required assist with pericare from nursing. Stand step pivot to chair MaxA x2 with fWW. She was left in chair, all needs met. Gait Assessment Gait Gait Assistance Required: Maximum Assistance,2 Person Assist Distance (Feet) 3 Able to Maintain Weight Bearing Status Yes During Gait Assistive Devices Assistive Device Gait Belt,Front Wheeled Walker Orthotic/Prosthetic Devices or Brace: No Gait Deviations General Gait Pattern Antalgic,Decreased Feet Clearance Factors Limiting Gait Function Factors Limiting Gait Function Decreased Activity Tolerance, Decreased Strength,Difficulty Following Directions,Limited Range of Motion,Pain,Poor Balance,Poor Safety Awareness PT-Balance Assessment Sitting Balance and Reactions Static Sitting Balance Ability Fair Dynamic Sitting Balance Ability Fair Standing Balance and Reactions Static Standing Balance Ability Poor Dynamic Standing Balance Ability Poor Device Used FWW M5 PT-IP Objective Assessments Start: 01/30/24 15:24 Freq: NEEDED Status: Active Protocol: Document 01/31/24 09:30 AB (Rec: 01/31/24 14:11 AB [id number]) Orientation Orientation/Cognition Level of Alertness Confusional State Orientation Name,Situation Language Function Ability Hard of Hearing Safety Awareness Decreased Safety Awareness Memory Description Short Term Impaired,Mcc Impaired Strength Lower Extremity Strength Assessment Left Impaired Hip 3+/5 Knee 4-/5 Muscle Tone Muscle Tone WNL Yes M6 PT-IP Treatment Start: 01/30/24 15:24 Freq: NEEDED Status: Active Protocol: Document 02/08/24 12:33 TS (Rec: 02/08/24 12:44 TS [id number]) Physical Therapy Treatment Education Education Provided Precautions,Safety M7 PT-IP Assessment and Plan Start: 01/30/24 15:24 Freq: NEEDED Status: Active Protocol: Document 02/08/24 12:33 TS (Rec: 02/08/24 12:44 TS [id number]) PT Summary Assessment and Plan Potential Rehabilitation Potential Fair Summary Impairments Pain,ROM,Strength,Balance, Coordination,Bed Mobility, Transfers,Gait,Activity Tolerance Progress Towards Goals Slow Progress due to Medical Issues,Slow Progress due to Activity Tolerance,Slow Progress - Other Assessment Summary Donya continues to make slow progress with her mobility. She is ModA x2 for bed mobility. She performed stand step pivot transfers x2 with MaxA x2 and use of FWW. She lacks awareness of her precautions and requires Max cueing throughout session for mobility. PT continues to recommend SNF. Goals Bed Mobility Goal Minimal Assistance Transfer Goal Minimal Assistance,Front Wheeled Walker Gait Goal Minimal Assistance,Front Wheel Walker Gait Distance 50 Other Goals improve bed mobility, transfers, ambulation using fWW ~ 150 ft SBA up/down 3 steps SPC SBA Days to Meet Goals 10 Frequency of Treatment Frequency Of Treatment Once a Day Treatment Plan Physical Therapy Treatment Plan Bed Mobility Training,Transfer Training,Gait Training, Therapeutic Exercise,Balance Retraining,Post Op Education, Discharge Planning,Hot or Cold Pack,Neuromuscular Re-ed, Coordination Retraining,Manual Therapy Precautions Posterior Hip Precautions No Hip Flexion > 90 degrees,No Hip Internal Rotation,No Hip Adduction Anterior Hip Precautions No Hip Extension,No Hip External Rotation Weight Bearing Status Weight Bearing Status Weight Bear as Tolerated Allowed Weight Bearing Amount (enter % RLE WBAT or #) (%) Recommendations To Nursing Amount of Assist Needed 2 Person Assist Discharge Recommendations PT Discharge Recommendations SNF Rehab Transportation Needs at Discharge Wheelchair/Cabulance,Stretcher /Ambulance
[2024-02-08 12:00] VITALS: PULSE 76; TEMP 37
--- NOTE | 2024-02-08 13:24 | PM.PN.1 ---
Subjective Subjective Interval history: The patient states that her back pain is better today. Sodium corrected itself, now improved to 130. Urine sodium of 11 likely hypovolemia. Surgery would like to perform debridement of sacral wound with possible wound vac, planned for tomorrow. Exam Vital Signs (past 8 hours): - 02/08/24 06:14 02/08/24 08:00 02/08/24 09:01 Temperature 98.6 F 98.2 F Pulse Rate 72 87 Respiratory Rate 18 12 Blood Pressure 156/77 H 146/62 H 146/62 H Pulse Oximetry 96 99 Oxygen Flow Rate 0 0 Oxygen Delivery Method Room Air Oxygen Flow Rate 0 Narrative Exam Narrative: NAD, alert and oriented. Fluent speech. Lungs are clear, normal rate and effort. Heart is regular, no murmur gallop or rub. Abdomen is soft, non distended. Extremities have b/l non pitting edema (lower). Objective Labs 02/08/24 07:05 02/08/24 07:05 Labs: Laboratory Results - last 24 hr 02/07/24 02/07/24 02/08/24 14:03 18:45 07:05 WBC 12.5 H RBC 3.96 L Hgb 11.6 L Hct 35.3 L MCV 89.3 MCH 29.4 MCHC 32.9 RDW 15.5 H Plt Count 317 Neut % (Auto) 88.7 H Lymph % (Auto) 6.4 L [place] % (Auto) 3.5 Eos % (Auto) 1.0 L Baso % (Auto) 0.4 Neut # (Auto) 23363 H Lymph # (Auto) 800 L [place] # (Auto) 400 Eos # (Auto) 100 Baso # (Auto) 0 Sodium 130 L 130 L Potassium 4.5 4.5 Chloride 97 L 97 L Carbon Dioxide 28 30 BUN 30 H 33 H Creatinine 0.80 0.84 Estimated GFR > 60 > 60 BUN/Creatinine Ratio 37.5 H 39.3 H Glucose 99 84 Calcium 8.4 8.5 Ur Random Sodium 11 L PFSH Social History household members: none Smoking Status: Never smoker alcohol intake: current Assessment & Plan Assessment & Plan narrative: 1. Rhabdomyolysis likely secondary to fall with prolonged immobilization. Present on admission and improved. - IV fluids have been stopped. CK was trended until <500 then stopped. Encourage oral intake. 2. 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 Present on admission and improved. s/p closed reduction in OR with orthopedics 01/30/2024. -PT / OT complicated with lack of participation and compliance with immobilizer brace -posterior hip precautions per Orthopedics, outpatient follow-up with Dr. Rafael Herbert 3. Hypertension, present on admission and active. -mildly elevated previously but adequate control now. Continue current medications. 4. Decubitus sacral ulcer, unknown chronicity, present on admission and increasing in size due to immobility, complicated by infection with Klebsiella and Pseudomonas. - high risk for significant ulceration - continue dressing changes per nursing driven protocols. - frequent turning - surgery consultation 02/03/2024, no debridement is indicated. Wound care recommended repeat evaluation, now surgery re-eval on 02/07 with plan for debridement and possible wound vac. - started Levaquin 500 mg daily for 7 days on 02/05/2024 5. Chest pain on 02/04/2024, without recurrence, ruled out for WI on initial troponin and followup and EKG, resolved - telemetry can be stopped. - serial cardiac enzymes negative to date - no further evaluation warranted at this time, can consider as outpatient if symptoms recur. 6. Hyponatremia - worsened over the past few days, now 125. Unclear etiology. Plan: -frequent turning and pillow placement for comfort and healing -daily dressing changes -started Levaquin 500 mg daily for 7 days on 02/05/2024 -[facility] the next few days after OR tomorrow, either with or without wound vac -son is in from [place] to help encourage patient, care reviewed yesterday Code: Full, surrogate is patient's son DVT prophylaxis: Aspirin 81mg BID Dispo: Anticipate discharge in the next 1-2 days to SNF, pending sacral wound. Discussed with case management, surgeon today to formulate the above history, assessment and plan/ Time-Based Coding :: [TOTAL MINUTES] spent with patient and on the chart (including review of chart, obtaining history, exam, reviewing outside data, placing orders, documenting exam and treatment plan, and counseling patient) on [DATE]. Quality VTE Deep Vein Thrombosis/Pulmonary Embolism Present on Admission: No
--- NOTE | 2024-02-08 13:35 | CM.DPC ---
DCP Con Update: Pt will be going to the OR again with Dr. Plascencia for debridement and possibly a wound vac. Called [facility] and clarified that yes, they can take her and apply their own woundvac once she arrives, they will just need wound care orders, dimensions, and so forth. Will monitor closely tomorrow for discharge readiness.
--- NOTE | 2024-02-08 14:15 | PC.NURSE ---
1100 Dr. Plascencia in to see Pt and RN/AUTOMATIC MOUNTER assisted Pt to turn on her left side to inspect wound for possible bedside debridement. Dressings removed and wound evaluated by Dr. Plascencia. New dressing reapplied by RN and Dr. Plascencia plans to debride wound in the OR tomorrow with potential for wound vac if needed. Pt is agreeable to this plan.
[2024-02-08 16:00] VITALS: BP 120/64; PULSE 75; RESP 18; TEMP 36.7; O2SAT 98
[2024-02-08] MEDS: CYCLOBENZAPRINE 10 MG TABLET PO (19:09)
[2024-02-08 20:00] VITALS: BP 155/86; PULSE 82; RESP 18; TEMP 36.4; O2SAT 94
[2024-02-08] MEDS: MONTELUKAST 10 MG TABLET PO (20:12)
--- NOTE | 2024-02-08 23:42 | PC.NURSE ---
Patient is alert and oriented except off on day of month by 2 days. Does take extra time to respond to orientation questions and seems to have difficulty expressing herself/finding correct words. Breath sounds CTA with RA sat of 94%. HRR w/persistent but stable BP of 155/86. Denied nausea. BT present and is passing flatus. Urinary retention discovered at end of previous shift and had indwelling catheter placed which has since put out 1250cc clear, mirian urine. Is being repositioned q2h in attempt to keep off back related to pressure injury; allevyn dressings CDI. Out of bed on day shift with assist of walker and 2 but does poorly and has difficulty following direction. In bed has abductor wedge between legs. Refuses SCD's as complains that bilateral calves are tender to touch. When not being moved denies pain. CMS in intact. Is having I&D of pressure wounds in a.m. so will be NPO after 0000 except for meds; patient made aware. Fall risk score is high and bed alarm is activated.
[2024-02-09] VITALS (15 sets, daily range): BP systolic 89–154; BP diastolic 53–75; PULSE 73–91; RESP 14–20; TEMP 36.3–37.4; O2SAT 92–99; BMI 17.9
[2024-02-09] MEDS: LEVOTHYROXINE 75 MCG TABLET PO (06:03)
[2024-02-09 06:54] LABS: Add Manual Diff / Slide Review NO; Basophils Absolute Auto 100 /uL (0-100); Basophils Percent Auto 0.4 % (0-2); Eosinophils Absolute Auto 100 /uL (0-450); Eosinophils Percent Auto 0.7 % (2-4); Hematocrit 30.1 % (36-46); Hemoglobin 10.1 g/dL (12.0-16.0); Lymphocytes Absolute Auto 1000 /uL (1100-4500); Lymphocytes Percent Auto 6.3 % (25-40); Mean Corpuscular HGB Conc 33.6 % (30-36); Mean Corpuscular Hemoglobin 29.7 PG (26-34); Mean Corpuscular Volume 88.4 fL (80-100); Monocytes Absolute Auto 600 /uL (0-900); Monocytes Percent Auto 4.1 % (3-14); Neutrophils Absolute Auto 13700 /uL (1500-7000); Neutrophils Percent Auto 88.5 % (50-75); Platelet Count 280 X10^3/uL (150-400); Red Blood Cell Count 3.41 X10^6/uL (4.0-5.2); Red Cell Distribution Width 15.2 % (11.6-14.8); White Blood Cell Count 15.5 X10^3/uL (4.5-11.0)
[2024-02-09 07:10] LABS: BUN Creatinine Ratio 42.7 (6-22); Blood Urea Nitrogen 38 mg/dL (7-17); Calcium 8.1 mg/dL (8.4-10.2); Carbon Dioxide 30 mmol/L (22-32); Chloride 96 mmol/L (98-107); Estimated Glomerular Filt Rate > 60 mL/min (>60); Glucose 82 mg/dL (80-110); HEMOLYSIS < 15 (0-50); Potassium 4.3 mmol/L (3.4-5.1); Sodium 127 mmol/L (137-145)
[2024-02-09] MEDS: FAMOTIDINE 20 MG TABLET PO (09:45)
[2024-02-09] MEDS: ASPIRIN EC 81 MG TABLET PO ×2 (09:45→20:37)
[2024-02-09] MEDS: lisinopriL 10 MG TABLET PO (09:45)
[2024-02-09] MEDS: DOCUSATE 100 MG CAPSULE PO ×2 (09:45→20:37)
[2024-02-09] MEDS: estradioL 1 MG TABLET PO (09:46)
[2024-02-09] MEDS: SODIUM CHLORIDE 0.9% FLUSH 10 ML IV ×2 (09:46→20:37)
[2024-02-09] MEDS: levoFLOXacin 250 MG TABLET 750 MG PO (09:50)
[2024-02-09] MEDS: HYDROCODONE/ACET 5/325 TABLET 1 TAB PO ×2 (10:03→15:27)
--- NOTE | 2024-02-09 10:20 | PT.IPTN ---
Current Diagnoses Pressure ulcer of sacral region, unstageable (01/30/24) Pressure ulcer of unspecified site, unspecified stage (01/30/24) Unspecified dislocation of left hip, initial encounter (01/30/24) Traumatic ischemia of muscle, initial encounter (01/30/24) Other specified postprocedural states (01/30/24) Surgery Performed Operation Date: 01/30/24 12:45 Actual Procedures p Closed Reduction Dislocated Hip(Left) - Rafael Herbert MD Operation Date: 02/09/24 14:00 <No data on this case meets the specified criteria> Physical Therapy Treatment Note M2 PT-IP Current Condition Start: 01/30/24 15:24 Freq: NEEDED Status: Active Protocol: Document 01/31/24 09:30 AB (Rec: 01/31/24 14:11 AB [id number]) Physical Therapy Current Condition Current Condition Evaluation Date 01/31/24 Treatment Diagnosis s/p L hip dislocation s/p closed reduction; difficulty in walking Onset Date 01/30/24 M3 PT-IP Subjective Start: 01/30/24 15:24 Freq: NEEDED Status: Active Protocol: Document 02/09/24 11:00 TS (Rec: 02/09/24 11:10 TS [id number]) Subjective Physical Therapy Visit Type Type Treatment Note Visit Start Time 10:20 Visit Stop Time 11:00 Number of LADLE PULLER Visits 3 Physical Therapy Visit Comments Patient Comments Pt found resting in bed, requires motivation to participate with PT. Therapy Pain Assessment Pain When Pain Assessed During Mobility Pain Present Pain Present Pain Reported M4 PT-IP Mobility and Gait Start: 01/30/24 15:24 Freq: NEEDED Status: Active Protocol: Document 02/09/24 11:00 TS (Rec: 02/09/24 11:10 TS [id number]) PT-Bed Mobility Assessment Supine to Sit Supine to Sit Moderate Assistance,2 Person Assistance,Head of Bed Elevated,Bedrails Scooting Scooting to Edge of Bed Moderate Assistance PT-Transfer Assessment Sit to and From Stand Sit to and from Stand Maximum Assistance,2 Person Assistance Equipment Transfer Assistive Device Gait Belt,Front Wheeled Walker Orthotic/Prosthetic Devices or Brace: No Transfers Transfer Destination Chair Transfer Technique Stand Step Pivot Transfer Ability Level of Assist Maximum Assistance,2 Person Assistance Comments Mobility Comments Knee brace donned prior to mobility. Supine to sit ModA x2 for LLE assist and uprighting trunk. PT sat EOB for replacement of wound dressing. Stand step pivot to chair MaxA x2 with FWW. Pt was left in chair, nursing assisting pt. Gait Assessment Gait Gait Assistance Required: Maximum Assistance,2 Person Assist Distance (Feet) 2 Able to Maintain Weight Bearing Status Yes During Gait Assistive Devices Assistive Device Gait Belt,Front Wheeled Walker Gait Deviations General Gait Pattern Antalgic,Decreased Feet Clearance Factors Limiting Gait Function Factors Limiting Gait Function Decreased Activity Tolerance, Decreased Strength,Difficulty Following Directions,Limited Range of Motion,Pain,Poor Balance,Poor Safety Awareness PT-Balance Assessment Sitting Balance and Reactions Static Sitting Balance Ability Good Dynamic Sitting Balance Ability Fair Standing Balance and Reactions Static Standing Balance Ability Fair Dynamic Standing Balance Ability Poor Device Used FWW M5 PT-IP Objective Assessments Start: 01/30/24 15:24 Freq: NEEDED Status: Active Protocol: Document 01/31/24 09:30 AB (Rec: 01/31/24 14:11 AB [id number]) Orientation Orientation/Cognition Level of Alertness Confusional State Orientation Name,Situation Language Function Ability Hard of Hearing Safety Awareness Decreased Safety Awareness Memory Description Short Term Impaired,[facility] Impaired Strength Lower Extremity Strength Assessment Left Impaired Hip 3+/5 Knee 4-/5 Muscle Tone Muscle Tone WNL Yes M6 PT-IP Treatment Start: 01/30/24 15:24 Freq: NEEDED Status: Active Protocol: Document 02/09/24 11:00 TS (Rec: 02/09/24 11:10 TS [id number]) Physical Therapy Treatment Education Education Provided Precautions,Safety M7 PT-IP Assessment and Plan Start: 01/30/24 15:24 Freq: NEEDED Status: Active Protocol: Document 02/09/24 11:00 TS (Rec: 02/09/24 11:10 TS [id number]) PT Summary Assessment and Plan Potential Rehabilitation Potential Fair Summary Impairments Pain,ROM,Strength,Balance, Coordination,Bed Mobility, Transfers,Gait,Activity Tolerance Progress Towards Goals Slow Progress due to Medical Issues,Slow Progress due to Activity Tolerance,Slow Progress - Other Assessment Summary Donya continues to make slow progress with her mobility. She requires ModA x2 for bed mobility and cues for sequencing. She performed stand step pivot to chair MaxA x2 with max cues and use of FWW. PT continues to recommend SNF. Goals Bed Mobility Goal Minimal Assistance Transfer Goal Minimal Assistance,Front Wheeled Walker Gait Goal Minimal Assistance,Front Wheel Walker Gait Distance 50 Other Goals improve bed mobility, transfers, ambulation using fWW ~ 150 ft SBA up/down 3 steps SPC SBA Days to Meet Goals 10 Frequency of Treatment Frequency Of Treatment Once a Day Treatment Plan Physical Therapy Treatment Plan Bed Mobility Training,Transfer Training,Gait Training, Therapeutic Exercise,Balance Retraining,Post Op Education, Discharge Planning,Hot or Cold Pack,Neuromuscular Re-ed, Coordination Retraining,Manual Therapy Precautions Posterior Hip Precautions No Hip Flexion > 90 degrees,No Hip Internal Rotation,No Hip Adduction Anterior Hip Precautions No Hip Extension,No Hip External Rotation Weight Bearing Status Weight Bearing Status Weight Bear as Tolerated Allowed Weight Bearing Amount (enter % RLE WBAT or #) (%) Recommendations To Nursing Amount of Assist Needed 2 Person Assist Discharge Recommendations PT Discharge Recommendations SNF Rehab Transportation Needs at Discharge Wheelchair/Cabulance,Stretcher /Ambulance
--- NOTE | 2024-02-09 11:18 | PM.PN.1 ---
Subjective Subjective Interval history: yesterday afternoon patient complained of suprapubic pain, abdomen was distended. She was unable to void, bladder scan was initially >999. Tapia eventually placed with return of >1L. Pain is improved today. Plan is for OR debridement of her ulcer today. Exam Vital Signs (past 8 hours): - 02/09/24 06:00 02/09/24 09:45 02/09/24 10:00 Temperature 98.8 F 98.6 F Pulse Rate 85 91 H Respiratory Rate 17 20 Blood Pressure 124/62 124/62 89/64 L Pulse Oximetry 95 96 Oxygen Flow Rate 0 0 Oxygen Delivery Method Room Air Oxygen Flow Rate 0 Narrative Exam Narrative: NAD, alert and oriented. Fluent speech. Lungs are clear, normal rate and effort. Heart is regular, no murmur gallop or rub. Abdomen is soft, non distended. Extremities have b/l non pitting edema (lower). Objective Labs 02/09/24 06:40 02/09/24 06:40 Labs: Laboratory Results - last 24 hr 02/09/24 06:40 WBC 15.5 H RBC 3.41 L Hgb 10.1 L Hct 30.1 L MCV 88.4 MCH 29.7 MCHC 33.6 RDW 15.2 H Plt Count 280 Neut % (Auto) 88.5 H Lymph % (Auto) 6.3 L [place] % (Auto) 4.1 Eos % (Auto) 0.7 L Baso % (Auto) 0.4 Neut # (Auto) 79056 H Lymph # (Auto) 1000 L [place] # (Auto) 600 Eos # (Auto) 100 Baso # (Auto) 100 Sodium 127 L Potassium 4.3 Chloride 96 L Carbon Dioxide 30 BUN 38 H Creatinine 0.89 Estimated GFR > 60 BUN/Creatinine Ratio 42.7 H Glucose 82 Calcium 8.1 L PFSH Social History household members: none Smoking Status: Never smoker alcohol intake: current Assessment & Plan Assessment & Plan narrative: 1. Rhabdomyolysis likely secondary to fall with prolonged immobilization. Present on admission and improved. - IV fluids have been stopped. CK was trended until <500 then stopped. Encourage oral intake. 2. 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 Present on admission and improved. s/p closed reduction in OR with orthopedics 01/30/2024. -PT / OT complicated with lack of participation and compliance with immobilizer brace -posterior hip precautions per Orthopedics, outpatient follow-up with Dr. Rafael Herbert 3. Hypertension, present on admission and active. -mildly elevated previously but adequate control now. Continue current medications. 4. Decubitus sacral ulcer, unknown chronicity, present on admission and increasing in size due to immobility, complicated by infection with Klebsiella and Pseudomonas. - high risk for significant ulceration - continue dressing changes per nursing driven protocols. - frequent turning - surgery consultation 02/03/2024, no debridement is indicated. Wound care recommended repeat evaluation, now surgery re-eval on 02/07 with plan for debridement and possible wound vac. - started Levaquin 500 mg daily for 7 days on 02/05/2024. WBC increasing, if not improved after surgery consider repeat cultures or transition to zosyn or cefepime or carbapenem based on previous cultures. 5. Chest pain on 02/04/2024, without recurrence, ruled out for OR on initial troponin and followup and EKG, resolved - telemetry can be stopped. - serial cardiac enzymes negative to date - no further evaluation warranted at this time, can consider as outpatient if symptoms recur. 6. Hyponatremia - worsened to as low as 125, Urine sodium was 11, likely hypovolemic. 127 today, likely due to NPO status for OR. Continue to follow daily. 7. Urinary retention. - attempted tapia removal, patient unable to void and had >1L urine output with tapia catheter. - continue tapia, recommend outpatient follow up with urology for further evaluation. Code: Full, surrogate is patient's son DVT prophylaxis: Aspirin 81mg BID Dispo: Anticipate discharge in the next 1-2 days to SNF, pending sacral wound. Discussed with case management, surgeon today to formulate the above history, assessment and plan/ Time-Based Coding :: [TOTAL MINUTES] spent with patient and on the chart (including review of chart, obtaining history, exam, reviewing outside data, placing orders, documenting exam and treatment plan, and counseling patient) on [DATE]. Quality VTE Deep Vein Thrombosis/Pulmonary Embolism Present on Admission: No
--- NOTE | 2024-02-09 11:45 | PM.PREOP ---
Pre-operative Note Interval Note History & Physical reviewed/Exam performed by Physician: Yes Changes to H&P: No H&P completed within 30 days and has changed as indicated here:: confirmed that her SNF does wound vacs
--- NOTE | 2024-02-09 14:00 | PM.PREOP ---
Pre-operative Note Interval Note History & Physical reviewed/Exam performed by Physician: Yes Changes to H&P: No
[2024-02-09] MEDS: LACTATED RINGERS 1,000 ML 42 ML IV ×2 (14:27→14:28)
--- NOTE | 2024-02-09 14:49 | SUR.OPER ---
Lateral on hospital bed, head on pillow, gel axillary roll in place, bottom leg bent with gel pad under knee to foot, upper leg straight and supported with pillows. Upper arm supported by pillows and secured over bottom arm to padded arm board. Tape over blanket lower legs.
[2024-02-09] MEDS: BACITRACIN OINT 0.9 GM PCKT 1 APPLIC TOP (15:05)
--- NOTE | 2024-02-09 15:07 | P.OP_ITS ---
Operative Date/Time/Diagnoses Date of procedure: 02/09/24 Time of procedure: 15:07 Pre-op diagnosis: Buttock abscess. Post-op diagnosis: same Procedure & Clinicians Procedure: Incision and drainage including a debridement of a buttock abscess over the sacral area likely an old hematoma Same procedure as scheduled: Yes Indications: buttock wound, abscess Surgeon: Anna Plascencia Click Yes if Unassisted: Yes Anesthesia Type: General Operative Notes Findings: abscess with tissue necrosis Closure Type: not applicable Specimen(s): none sent Prosthetic devices, grafts, tissues, transplants, or devices: negative pressure wound vac Estimated Blood Loss (mL): 15 Blood products transfused: none Procedure in detail: Preop diagnosis: Buttock wound possible abscess Postop diagnosis: Same Operative procedure: I and D of buttock abscess across the sacrum with debridement of subcutaneous and skin tissues. Surgeon: Skye Plascencia MD Anesthetic: General with LMA intubation Findings: Softball size abscess cavity corresponding with a baseball sized area of necrosis of the skin on the sacrum. Healthy tissue beneath. Underlying cavity measures 10cm X 12 cm x2cm. Opening in the skin itself 8cm x 7cm. Procedure: Patient placed in a lateral position, draped in a sterile fashion. The area of necrotic skin was excised using a 10 blade. Hemostasis was maintained with electrocautery and direct pressure. Necrotic tissue was debrided again with the 11 blade along with scissors. This included skin and subcutaneous tissue, no muscle, no bone. I then placed a black sponge into the defect and created a bridge to the lateral aspect of her right hip. Beneath the abscess and completely separate is a small area of stage I ulceration were just the superficial epidermis is missing. Baci tracin ointment was placed in that area. Specimen: None Blood loss: 15 mL Complications: none Post-operative Condition: stable Disposition: PACU
[2024-02-09] MEDS: MORPHINE 10 MG/ML INJ IV ×3 (15:21→15:33)
--- NOTE | 2024-02-09 15:21 | OT.IPNOTE ---
Pt in surgery and to check on her tomorrow for OT.
[2024-02-09 15:41] LABS: Osmolality Urine 287 mOsmol/kg (.)
[2024-02-09] MEDS: HYDROCODONE/ACET 10/325 TABLET 1 TAB PO (15:54)
[2024-02-09] MEDS: LACTATED RINGERS 1,000 ML 120 ML IV ×2 (16:41→23:31)
--- NOTE | 2024-02-09 18:11 | P.PN_ITS ---
Subjective Subjective Interval history: Donya states she is doing okay, she feels her hip is as good as it's gonna be. Mild pain, has been able to work w/ PT using the knee immobilizer. She underwent an I&D of a sacral abcess w/ general surgery today so she feels quite tired. She appears to be slightly confused when answering questions. Exam Vital Signs (past 8 hours): - 02/09/24 14:08 02/09/24 15:10 02/09/24 15:15 Temperature 99.3 F 97.9 F Pulse Rate 83 79 79 Respiratory Rate 18 14 15 Blood Pressure 117/57 L 115/53 L 115/63 Pulse Oximetry 99 99 94 Oxygen Delivery Method Room Air Room Air Room Air 02/09/24 15:23 02/09/24 15:30 02/09/24 15:35 Temperature 97.5 F L 97.4 F L 97.4 F L Pulse Rate 78 77 76 Respiratory Rate 18 16 16 Blood Pressure 120/58 L 115/62 124/58 L Pulse Oximetry 93 93 95 Oxygen Delivery Method Room Air Room Air Room Air Oxygen Delivery Method Room Air Oxygen Flow Rate 0 Narrative Exam Narrative: Wiggles all toes. Gross sensation intact throughout bilateral lower extremities. Calves soft, compressible and non-tender bilaterally. 5/5 strength w/ DF, PF, EHL. Wound vac in place on sacrum. Objective Labs 02/09/24 06:40 02/09/24 06:40 Labs: Laboratory Results - last 24 hr 02/07/24 02/09/24 18:45 06:40 WBC 15.5 H RBC 3.41 L Hgb 10.1 L Hct 30.1 L MCV 88.4 MCH 29.7 MCHC 33.6 RDW 15.2 H Plt Count 280 Neut % (Auto) 88.5 H Lymph % (Auto) 6.3 L [place] % (Auto) 4.1 Eos % (Auto) 0.7 L Baso % (Auto) 0.4 Neut # (Auto) 69324 H Lymph # (Auto) 1000 L [place] # (Auto) 600 Eos # (Auto) 100 Baso # (Auto) 100 Sodium 127 L Potassium 4.3 Chloride 96 L Carbon Dioxide 30 BUN 38 H Creatinine 0.89 Estimated GFR > 60 BUN/Creatinine Ratio 42.7 H Glucose 82 Calcium 8.1 L Urine Osmolality 287 PFSH Social History household members: none Smoking Status: Never smoker alcohol intake: current Assessment & Plan Assessment & Plan narrative: 1) Mobilize with physical therapy. May discontinue hip brace per Dr. Herbert however she needs to use a knee immobilizer when ambulating. She does not need to utilize the knee immobilizer when in bed or sitting in the chair. Continue hip abduction pillow when in bed. 2) Aspirin 81 mg b.i.d. x4 weeks for DVT prophylaxis 3) Continue multimodal pain management as needed. Discharge disposition per medicine. Follow up outpatient orthopedic clinic to discuss hip revision options if desired per patient. Time-Based Coding :: [TOTAL MINUTES] spent with patient and on the chart (including review of chart, obtaining history, exam, reviewing outside data, placing orders, documenting exam and treatment plan, and counseling patient) on [DATE]. Quality VTE Deep Vein Thrombosis/Pulmonary Embolism Present on Admission: No
[2024-02-09] MEDS: MONTELUKAST 10 MG TABLET PO (20:37)
[2024-02-10] VITALS: BP 114/65; PULSE 88; RESP 16; TEMP 36.4; O2SAT 96
[2024-02-10] MEDS: LEVOTHYROXINE 75 MCG TABLET PO (05:44)
[2024-02-10] MEDS: ACETAMINOPHEN 325 MG TABLET 650 MG PO (05:46)
[2024-02-10 05:52] VITALS: BP 126/82; PULSE 84; RESP 18; TEMP 36.6; O2SAT 96
[2024-02-10] MEDS: LACTATED RINGERS 1,000 ML 120 ML IV (06:47)
[2024-02-10 09:00] VITALS: BP 131/67; PULSE 75; RESP 16; TEMP 36.3; O2SAT 95
--- NOTE | 2024-02-10 09:12 | DIET.CONS2 ---
Dietary Inpatient Consultation Note Admission Date: 01/30/2024 01:10 Pt reports tolerating Shahbaz and trying to eat as much as possible. Was eating breakfast and drinking ons smoothie (~25%) during visit. Will continue Shahbaz BID and ONS, encouraging pt to drink supplements throughout day/between meals. Continued coordination with unit host/kitchen to provide high protein/kcal meals. Will continue to follow. Diet: 02/09/24 Dinner General (Regular) Diet Diet Modifications: high protein Food Texture: Level 7 - Regular Liquid Consistency: Level 0 - Thin Nutrition Percent Meal Consumed 25% 02/08/24 18:00 Percent Meal Consumed 25% 02/08/24 14:00 Percent Meal Consumed 25% 02/08/24 09:38 Electronically Signed by: Deidra Martin 02/10/24 09:12 Clinical Dietitian [address] [id number]
[2024-02-10 09:36] VITALS: BP 113/67
[2024-02-10] MEDS: estradioL 1 MG TABLET PO (09:36)
[2024-02-10] MEDS: lisinopriL 10 MG TABLET PO (09:36)
[2024-02-10] MEDS: ASPIRIN EC 81 MG TABLET PO ×2 (09:37→20:21)
[2024-02-10] MEDS: FAMOTIDINE 20 MG TABLET PO (09:37)
[2024-02-10] MEDS: DOCUSATE 100 MG CAPSULE PO ×2 (09:37→20:21)
--- NOTE | 2024-02-10 10:43 | OT.IP.TRT ---
Current Diagnoses Pressure ulcer of sacral region, unstageable (01/30/24) Pressure ulcer of unspecified site, unspecified stage (01/30/24) Unspecified dislocation of left hip, initial encounter (01/30/24) Traumatic ischemia of muscle, initial encounter (01/30/24) Other specified postprocedural states (01/30/24) Surgery Performed Operation Date: 01/30/24 12:45 Actual Procedures p Closed Reduction Dislocated Hip(Left) - Rafael Herbert MD Operation Date: 02/09/24 14:00 Actual Procedures p debridement of sacral wound with wound vac placement - Anna Plascencia MD Occupational Therapy Treatment Note M2 OT-IP Current Condition Start: 01/31/24 14:15 Freq: Status: Active Protocol: Document 01/31/24 14:15 [facility] (Rec: 01/31/24 14:33 [facility] [id number]) Occupational Therapy Current Condition Current Condition Evaluation Date 01/31/24 Treatment Diagnosis FAll S/P Left hip dislocations Diagnosis Onset Date 01/30/24 Post Operative Precautions Posterior Hip Precautions No Hip Flexion > 90 degrees,No Hip Internal Rotation,No Hip Adduction Anterior Hip Precautions No Hip Extension,No Hip External Rotation Other Precautions Hip abductions brace when out of bed and pillow on in bed. Weight Bearing Status Weight Bearing Status Weight Bear as Tolerated M3 OT- IP Subjective and Pain Start: 01/31/24 14:15 Freq: Status: Active Protocol: Document 02/10/24 11:27 [facility] (Rec: 02/10/24 11:38 [facility] [id number]) OT- Subjective Occupational Therapy Visit Type Type Treatment Note Visit Start Time 10:43 Visit Stop Time 11:24 Occupational Therapy Visit Comments Patient Comments Pt agrees to get up. Patient/Caregiver Goals To get better. OT Pain Assessment Pain When Pain Assessed At Rest Pain Present Pain Present Pain Reported M4 OT- IP ADL's Start: 01/31/24 14:15 Freq: Status: Active Protocol: Document 02/10/24 11:27 [facility] (Rec: 02/10/24 11:38 [facility] [id number]) OT [id number] Comments OT Self-Feeding Comments not meal time OT ADL-Grooming General Evaluation Grooming Ability Standby Assistance Comments OT Grooming Comments Able to do while standing with the FWW by the sink. OT ADL-Oral Care General Eval Oral Care Ability Independent OT ADL-Dressing General Eval Upper Body Dressing Ability Moderate Assistance Areas Needing Assistance Orthosis/Prosthesis Comments OT Dressing Comments Total assist for knee immobilizer , socks, and brief . OT ADL-Bathing Comments OT Bathing Comments Pt able to stand at the sink and use a wet wipe to wash off pericare needs. Bandage falling off on her wound and nursing came to change it out. M5 OT- IP IADL's Start: 01/31/24 14:15 Freq: Status: Active Protocol: Document 01/31/24 14:15 [facility] (Rec: 01/31/24 14:33 [facility] [id number]) OT-Instrumental Activities of Daily Living Deficits IADL Deficits Identified Deficits Home Safety Awareness Awareness of Need for Assistance at Home Good Awareness Home Safety Comments Pt is well aware that she will not be able to care for herself and after skilled rehab looking to hire assist to stay with her. M6 OT- IP Functional Cognition Start: 01/31/24 14:15 Freq: Status: Active Protocol: Document 02/08/24 13:27 [facility] (Rec: 02/08/24 13:34 [facility] [id number]) Cognitive Factors Limiting Selfcare Function Cognitive Ability Attention Span Ability Capable of Focused Attention, Capable of Sustained Attention Ability to Follow Commands Able to Follow One Step Commands with Increased Time, Able to Follow One Step Commands with Repetition Memory Description Short Term Impaired Cognitive Comments Cognitive Assessment Comments Pt not able to recall her precautions. However pt did recall what the PA told and wrote down for her that the knee immobilizer on while walking and can be off while sitting or lying down. M7 OT- IP Mobility and Balance Start: 01/31/24 14:15 Freq: Status: Active Protocol: Document 02/10/24 11:27 [facility] (Rec: 02/10/24 11:38 [facility] [id number]) OT- Bed Mobility Assessment Supine to Sit Supine to Sit Assist Moderate Assistance,2 Person Assistance OT-Transfer Assessment Sit to and From Stand Sit to and from Stand Moderate Assistance,2 Person Assistance Transfers Transfer Ability Moderate Assistance,1 Person Assistance,2 Person Assistance Technique Transfer Destination Bed,Chair Devices Transfer Assistive Devices Gait Belt,Front Wheeled Walker Comments Mobility Comments MOD A x2 for bed mobility and come to stand so able to get her LLE underneath her when standing with the FWW. Pt able to walk around the room with 1-2 person assist as one person having to hld her wound vac. Pt also needing assist to help slide her LLE forwards when going down to sit. OT- Balance Assessment Sitting Balance and Reactions Static Sitting Balance Ability Good Dynamic Sitting Balance Ability Good Standing Balance and Reactions Static Standing Balance Ability Fair Dynamic Standing Balance Ability Fair M8 OT- IP Objective Assessments Start: 01/31/24 14:15 Freq: Status: Active Protocol: Document 01/31/24 14:15 [facility] (Rec: 01/31/24 14:33 [facility] [id number]) OT Gross Range of Motion Upper Extremity Range of Motion Assessment Within Functional Limits OT Strength Upper Extremity Strength Assessment Within Functional Limits Comments Strength Comments WFL for age and lifestyle. M9 OT- IP Assessment and Plan Start: 01/31/24 14:15 Freq: Status: Active Protocol: Document 02/10/24 11:27 [facility] (Rec: 02/10/24 11:38 [facility] [id number]) OT Summary Assessment and Plan Potential Rehabilitation Potential Good Analytic Complexity at Evaluation Moderate Summary OT Impairments Pain,Strength,Balance, Functional Cognition, Functional Mobility,Grooming, Dressing,Toileting,Bathing, Toilet Transfers,Shower Transfers,Activity Tolerance Progress Towards Goals Progressing Toward Goals Assessment Summary Pt dong much better today and able to walk in the room with FWW with 1-2 person assist. Pt able to stand by the sink to do all her grooming and oral care needs. Pt to go to skilled rehab when medically stable. Goals Self-Feeding Goal Independent Grooming Goal Independent Dressing Goal Moderate Assistance Toileting Goal Minimal Assistance Bathing Goal Moderate Assistance Toilet Transfer Goal Standby Assistance Shower Transfer Goal Contact Guard Assistance Days to Meet Goals 25 Frequency of Treatment Frequency Of Treatment Once a Day Treatment Plan OT Treatment Plan ADL Training,Functional Cognition Training,Functional Mobility,Patient/Family Education,Discharge Planning Other Treatment Recommendations and Next Pt to be able to transfer to [facility] Focus the [facility] with MODA x1 with FWW. Discharge Recommendations OT Discharge Recommendations SNF Rehab Transportation Needs at Discharge Stretcher/Ambulance
--- NOTE | 2024-02-10 10:49 | PT.IPTN ---
Current Diagnoses Pressure ulcer of sacral region, unstageable (01/30/24) Pressure ulcer of unspecified site, unspecified stage (01/30/24) Unspecified dislocation of left hip, initial encounter (01/30/24) Traumatic ischemia of muscle, initial encounter (01/30/24) Other specified postprocedural states (01/30/24) Surgery Performed Operation Date: 01/30/24 12:45 Actual Procedures p Closed Reduction Dislocated Hip(Left) - Rafael Herbert MD Operation Date: 02/09/24 14:00 Actual Procedures p debridement of sacral wound with wound vac placement - Anna Plascencia MD Physical Therapy Treatment Note M2 PT-IP Current Condition Start: 01/30/24 15:24 Freq: NEEDED Status: Active Protocol: Document 01/31/24 09:30 AB (Rec: 01/31/24 14:11 AB [id number]) Physical Therapy Current Condition Current Condition Evaluation Date 01/31/24 Treatment Diagnosis s/p L hip dislocation s/p closed reduction; difficulty in walking Onset Date 01/30/24 M3 PT-IP Subjective Start: 01/30/24 15:24 Freq: NEEDED Status: Active Protocol: Document 02/10/24 11:30 TS (Rec: 02/10/24 11:39 TS [id number]) Subjective Physical Therapy Visit Type Type Treatment Note Visit Start Time 10:49 Visit Stop Time 11:27 Notes Wound vac OT present Number of LINE DIRECTOR Visits 4 Physical Therapy Visit Comments Patient Comments Pt found resting in bed, is agreeable to PT. Therapy Pain Assessment Pain When Pain Assessed During Mobility Pain Present Pain Present Pain Reported M4 PT-IP Mobility and Gait Start: 01/30/24 15:24 Freq: NEEDED Status: Active Protocol: Document 02/10/24 11:30 TS (Rec: 02/10/24 11:39 TS [id number]) PT-Bed Mobility Assessment Supine to Sit Supine to Sit Moderate Assistance,2 Person Assistance,Head of Bed Elevated,Bedrails Scooting Scooting to Edge of Bed Moderate Assistance PT-Transfer Assessment Sit to and From Stand Sit to and from Stand Moderate Assistance,2 Person Assistance Equipment Transfer Assistive Device Gait Belt,Front Wheeled Walker Orthotic/Prosthetic Devices or Brace: No Comments Mobility Comments Knee immobilizer donned prior to mobility. Supine to sit ModA x2 for LE's and uprighting trunk. STS with FWW ModA x2, pt requires cues for feet underneath her. She ambulated ModA x1-2 PA with FWW and carrying of wound vac. She stood at sink for brushing of teeth, pt has clear like gel coming from rectum, RN notified. She sat back in chair, RN replaced dressing on wound. Pt was left in chair, all needs met. Gait Assessment Gait Gait Assistance Required: Moderate Assistance,1 Person Assist,2 Person Assist Distance (Feet) 20 Assistive Devices Assistive Device Gait Belt,Front Wheeled Walker Orthotic/Prosthetic Devices or Brace: No Gait Deviations General Gait Pattern Antalgic,Decreased Feet Clearance Factors Limiting Gait Function Factors Limiting Gait Function Decreased Activity Tolerance, Decreased Strength,Difficulty Following Directions,Limited Range of Motion,Pain,Poor Balance,Poor Safety Awareness PT-Balance Assessment Sitting Balance and Reactions Static Sitting Balance Ability Good Dynamic Sitting Balance Ability Fair Standing Balance and Reactions Static Standing Balance Ability Fair Dynamic Standing Balance Ability Poor Device Used FWW M5 PT-IP Objective Assessments Start: 01/30/24 15:24 Freq: NEEDED Status: Active Protocol: Document 01/31/24 09:30 AB (Rec: 01/31/24 14:11 AB [id number]) Orientation Orientation/Cognition Level of Alertness Confusional State Orientation Name,Situation Language Function Ability Hard of Hearing Safety Awareness Decreased Safety Awareness Memory Description Short Term Impaired,Floor Runner Impaired Strength Lower Extremity Strength Assessment Left Impaired Hip 3+/5 Knee 4-/5 Muscle Tone Muscle Tone WNL Yes M6 PT-IP Treatment Start: 01/30/24 15:24 Freq: NEEDED Status: Active Protocol: Document 02/10/24 11:30 TS (Rec: 02/10/24 11:39 TS [id number]) Physical Therapy Treatment Education Education Provided Precautions,Safety M7 PT-IP Assessment and Plan Start: 01/30/24 15:24 Freq: NEEDED Status: Active Protocol: Document 02/10/24 11:30 TS (Rec: 02/10/24 11:39 TS [id number]) PT Summary Assessment and Plan Potential Rehabilitation Potential Fair Summary Impairments Pain,ROM,Strength,Balance, Coordination,Bed Mobility, Transfers,Gait,Activity Tolerance Progress Towards Goals Slow Progress due to Medical Issues,Slow Progress due to Activity Tolerance,Slow Progress - Other Assessment Summary Donya continues to make slow progress with her mobility. She requires ModA x2 for bed mobility and for STS with FWW. She is unsteady with gait and requires cues for FWW management. She progressed her gait to ~20'ModA x1-2PA. PT continues to recommend SNF at this time. Goals Bed Mobility Goal Minimal Assistance Transfer Goal Minimal Assistance,Front Wheeled Walker Gait Goal Minimal Assistance,Front Wheel Walker Gait Distance 50 Other Goals improve bed mobility, transfers, ambulation using fWW ~ 150 ft SBA up/down 3 steps SPC SBA Days to Meet Goals 10 Frequency of Treatment Frequency Of Treatment Once a Day Treatment Plan Physical Therapy Treatment Plan Bed Mobility Training,Transfer Training,Gait Training, Therapeutic Exercise,Balance Retraining,Post Op Education, Discharge Planning,Hot or Cold Pack,Neuromuscular Re-ed, Coordination Retraining,Manual Therapy Precautions Posterior Hip Precautions No Hip Flexion > 90 degrees,No Hip Internal Rotation,No Hip Adduction Anterior Hip Precautions No Hip Extension,No Hip External Rotation Weight Bearing Status Weight Bearing Status Weight Bear as Tolerated Allowed Weight Bearing Amount (enter % RLE WBAT or #) (%) Recommendations To Nursing Amount of Assist Needed Mechanical Lift Discharge Recommendations PT Discharge Recommendations SNF Rehab Transportation Needs at Discharge Stretcher/Ambulance
--- NOTE | 2024-02-10 11:24 | OT.IP.TRT ---
Current Diagnoses Pressure ulcer of sacral region, unstageable (01/30/24) Pressure ulcer of unspecified site, unspecified stage (01/30/24) Unspecified dislocation of left hip, initial encounter (01/30/24) Traumatic ischemia of muscle, initial encounter (01/30/24) Other specified postprocedural states (01/30/24) Surgery Performed Operation Date: 01/30/24 12:45 Actual Procedures p Closed Reduction Dislocated Hip(Left) - Rafael Herbert MD Operation Date: 02/09/24 14:00 Actual Procedures p debridement of sacral wound with wound vac placement - Anna Plascencia MD Occupational Therapy Treatment Note M2 OT-IP Current Condition Start: 01/31/24 14:15 Freq: Status: Active Protocol: Document 01/31/24 14:15 [facility] (Rec: 01/31/24 14:33 [facility] [id number]) Occupational Therapy Current Condition Current Condition Evaluation Date 01/31/24 Treatment Diagnosis FAll S/P Left hip dislocations Diagnosis Onset Date 01/30/24 Post Operative Precautions Posterior Hip Precautions No Hip Flexion > 90 degrees,No Hip Internal Rotation,No Hip Adduction Anterior Hip Precautions No Hip Extension,No Hip External Rotation Other Precautions Hip abductions brace when out of bed and pillow on in bed. Weight Bearing Status Weight Bearing Status Weight Bear as Tolerated M3 OT- IP Subjective and Pain Start: 01/31/24 14:15 Freq: Status: Active Protocol: Document 02/10/24 11:27 [facility] (Rec: 02/10/24 11:38 [facility] [id number]) OT- Subjective Occupational Therapy Visit Type Type Treatment Note Visit Start Time 10:43 Visit Stop Time 11:24 Occupational Therapy Visit Comments Patient Comments Pt agrees to get up. Patient/Caregiver Goals To get better. OT Pain Assessment Pain When Pain Assessed At Rest Pain Present Pain Present Pain Reported M4 OT- IP ADL's Start: 01/31/24 14:15 Freq: Status: Active Protocol: Document 02/10/24 11:27 [facility] (Rec: 02/10/24 11:38 [facility] [id number]) OT [id number] Comments OT Self-Feeding Comments not meal time OT ADL-Grooming General Evaluation Grooming Ability Standby Assistance Comments OT Grooming Comments Able to do while standing with the FWW by the sink. OT ADL-Oral Care General Eval Oral Care Ability Independent OT ADL-Dressing General Eval Upper Body Dressing Ability Moderate Assistance Areas Needing Assistance Orthosis/Prosthesis Comments OT Dressing Comments Total assist for knee immobilizer , socks OT ADL-Bathing Comments OT Bathing Comments Pt able to stand at the sink and use a wet wipe to wash off pericare needs. Bandage falling off on her wound and nursing came to change it out. M7 OT- IP Mobility and Balance Start: 01/31/24 14:15 Freq: Status: Active Protocol: Document 02/10/24 11:27 [facility] (Rec: 02/10/24 11:38 [facility] [id number]) OT- Bed Mobility Assessment Supine to Sit Supine to Sit Assist Moderate Assistance,2 Person Assistance OT-Transfer Assessment Sit to and From Stand Sit to and from Stand Moderate Assistance,2 Person Assistance Transfers Transfer Ability Moderate Assistance,1 Person Assistance,2 Person Assistance Technique Transfer Destination Bed,Chair Devices Transfer Assistive Devices Gait Belt,Front Wheeled Walker Comments Mobility Comments MOD A x2 for bed mobility and come to stand so able to get her LLE underneath her when standing with the FWW. Pt able to walk around the room with 1-2 person assist as one person having to hld her wound vac. Pt also needing assist to help slide her LLE forwards when going down to sit. OT- Balance Assessment Sitting Balance and Reactions Static Sitting Balance Ability Good Dynamic Sitting Balance Ability Good Standing Balance and Reactions Static Standing Balance Ability Fair Dynamic Standing Balance Ability Fair M8 OT- IP Objective Assessments Start: 01/31/24 14:15 Freq: Status: Active Protocol: Document 01/31/24 14:15 [facility] (Rec: 01/31/24 14:33 [facility] [id number]) OT Gross Range of Motion Upper Extremity Range of Motion Assessment Within Functional Limits OT Strength Upper Extremity Strength Assessment Within Functional Limits Comments Strength Comments WFL for age and lifestyle. M9 OT- IP Assessment and Plan Start: 01/31/24 14:15 Freq: Status: Active Protocol: Document 02/10/24 11:27 [facility] (Rec: 02/10/24 11:38 [facility] [id number]) OT Summary Assessment and Plan Potential Rehabilitation Potential Good Analytic Complexity at Evaluation Moderate Summary OT Impairments Pain,Strength,Balance, Functional Cognition, Functional Mobility,Grooming, Dressing,Toileting,Bathing, Toilet Transfers,Shower Transfers,Activity Tolerance Progress Towards Goals Progressing Toward Goals Assessment Summary Pt doing much better today and able to walk in the room with FWW with 1-2 person assist. Pt able to stand by the sink to do all her grooming and oral care needs. Pt to go to skilled rehab when medically stable. Goals Self-Feeding Goal Independent Grooming Goal Independent Dressing Goal Moderate Assistance Toileting Goal Minimal Assistance Bathing Goal Moderate Assistance Toilet Transfer Goal Standby Assistance Shower Transfer Goal Contact Guard Assistance Days to Meet Goals 25 Frequency of Treatment Frequency Of Treatment Once a Day Treatment Plan OT Treatment Plan ADL Training,Functional Cognition Training,Functional Mobility,Patient/Family Education,Discharge Planning Other Treatment Recommendations and Next Pt to be able to transfer to [facility] with MODA x1 with FWW. Discharge Recommendations OT Discharge Recommendations SNF Rehab Transportation Needs at Discharge Stretcher/Ambulance
--- NOTE | 2024-02-10 13:40 | P.PN_ITS ---
Subjective Subjective Interval history: 89 yo woman was found down at home on 01/29/2024 after not having been seen for about 24 hours. She was found to have a dislocation of her LEFT total hip. This was reduced under anesthesia by Dr Herbert on 01/30/2024, and she was admitted to the hospitalist service for care of her medical issues while she was evaluated by PT for rehab needs. Her orthopedic course has been remarkable for her refusal to wear an ill-fitting hip abduction brace as ordered by Dr Herbert. This significantly limited her progress w/ PT. On POD# 7, it was determined that the brace could be dispensed with and that she could wear a knee immobilizer on her left leg instead while ambulating to limit hip flexion and adduction. She had a sacral decubitus ulcer that was present on admission and worsened to the point where it required surgical I&D and placement of a wound vac yesterday. On my visit today, she is sitting up in bed eating lunch. She is feeling quite well, reports walking more with PT today than she has since admission. She says the difference in comfort between the knee immobilizer is 'night and day.' She gave me the whole story of her fall today: She had a sciatic flare and contacted her PCPs office, and another provider prescribed oxycodone for her. She took this, and subsequently went to the bathroom. She was having opioid-related hallucinations and fell off the toilet. She estimates she was there for about two days before her neighbor and good friend - who only lives on [facility] part- time - noticed she hadn't seen her and came by to check on her. Exam Vital Signs (past 8 hours): - 02/10/24 05:52 02/10/24 09:00 02/10/24 09:36 Temperature 97.8 F 97.3 F L Pulse Rate 84 75 Respiratory Rate 18 16 Blood Pressure 126/82 131/67 113/67 Pulse Oximetry 96 95 Oxygen Flow Rate 0 Oxygen Delivery Method Room Air Oxygen Flow Rate 0 Narrative Exam Narrative: 5/5 strength in hip flexors, quadriceps, hamstrings, DF, PF, EHL on left. Sensation to light touch intact throughout LLE, calf soft and compressible. 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 She needs to use a knee immobilizer on the LLE when ambulating. She does not need to utilize the knee immobilizer when in bed or sitting in the chair. Continue hip abduction pillow when in bed, but if she is clear-headed and doesn't change position much in her sleep, she doesn't need to use this. 2) Aspirin 81 mg b.i.d. x4 weeks for DVT prophylaxis 3) Per CM notes, it looks like the plan is for SNF at [facility], possibly as early as tomorrow. 4) Pt has NOT had surgery w/ Dr Herbert or any of the surgeons at [facility]. She is welcome to follow up w/ Dr Herbert at her convenience to discuss any issues she has with left hip, but she has no incisions or other issues that require follow up with our surgeons should she desire care elsewhere. 5) Will sign off on this patient. Please reconsult if any other orthopedic issues arise. Postoperative Procedures: Procedures Operation Date: 01/30/24 12:45 Actual Procedure Side Surgeon p Closed Reduction Dislocated Hip Left Rafael Herbert MD Operation Date: 02/09/24 14:00 Actual Procedure Side Surgeon p debridement of sacral wound with wound vac placement Anna Plascencia MD Postoperative day: 11 Quality VTE Deep Vein Thrombosis/Pulmonary Embolism Present on Admission: No
--- NOTE | 2024-02-10 13:49 | CM.DPC ---
Addendum entered by CARLITOS Cox 02/10/24 16:39: PASRR, Discharge Order, MAR, and Signed Medications Lists sent to [facility] via secure email (Admissions email: [email or web address]). DCP called [facility] for BLS transport on 02/10 at 9:30am for an arrival at 1115 at [facility]. Medical necessity form completed and with pt packet. DIRECTOR STAFFING, Coordinator, Provider and pt RN notified. Plan: Anticipating discharge to [facility] on 02/10 for an arrival at 1100, transport at 0930. Original Note: DCP Continued: Reviewed EMR and team rounds for pt?s medical status. Per rounds, pt could discharge tp [facility] SNF as soon as Tuesday, 02/10, if medically cleared. DCP called [facility] and spoke with admissions (ph#[phone]), it was reported that pt can be accepted at 1100 (transport should be at 0930) if all discharge paperwork was sent by end of day on 02/09. DCP discussed this with hospitalist who will be coordinating with Surgery team for wound vac orders and instructions. PASRR and BLS transport form completed. Pending discharge orders, wound vac orders, and 7-day MAR to be sent to facility prior to discharge. Once paperwork is sent, need to confirm BLS transport with [facility] at ~0930. Plan: Anticipating discharge to [facility] on 02/10 for an arrival at 1100, transport at 0930. Pending discharge/wound vac orders to be sent to facility. CM Team will continue to follow for coordination of discharge plans. BONNIE Hernandez
--- NOTE | 2024-02-10 14:06 | PM.PN.1 ---
Subjective Subjective Interval history: POD #1 s/p debridment and I&D of sacral ulcer with abscess formation. No cultures were sent from the OR. Previous cultures with pseudomonas. She has been on oral levaquin. She feels relatively good today, no complaints, back pain is okay. Exam Vital Signs (past 8 hours): - 02/10/24 09:00 02/10/24 09:36 Temperature 97.3 F L Pulse Rate 75 Respiratory Rate 16 Blood Pressure 131/67 113/67 Pulse Oximetry 95 Oxygen Delivery Method Room Air Oxygen Flow Rate 0 Narrative Exam Narrative: NAD, alert and oriented. Fluent speech. Lungs are clear, normal rate and effort. Heart is regular, no murmur gallop or rub. Abdomen is soft, non distended. Extremities have b/l non pitting edema (lower). Wound vac in place to sacrum, functioning well currently. Objective Labs 02/09/24 06:40 02/09/24 06:40 Labs: Laboratory Results - last 24 hr 02/07/24 18:45 Urine Osmolality 287 PFSH Social History household members: none Smoking Status: Never smoker alcohol intake: current Assessment & Plan Assessment & Plan narrative: 1. Rhabdomyolysis likely secondary to fall with prolonged immobilization. Present on admission and improved. - IV fluids have been stopped. CK was trended until <500 then stopped. Encourage oral intake. 2. 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 Present on admission and improved. - s/p closed reduction in OR with orthopedics 01/30/2024. -PT / OT complicated with lack of participation and compliance with immobilizer brace. Okay to continue with knee immobilizer per orthopedics team now. -posterior hip precautions per Orthopedics, outpatient follow-up with Dr. Rafael Herbert 3. Hypertension, present on admission and active. -mildly elevated previously but adequate control now. Continue current medications. 4. Decubitus sacral ulcer, unknown chronicity, present on admission and increasing in size due to immobility, complicated by infection with Klebsiella and Pseudomonas. - continue wound vac therapy. - frequent turning - surgery consultation 02/03/2024, no debridement is indicated. Wound care recommended repeat evaluation, now surgery re-eval on 02/07 with wound vac placement and I&D of abscess on 02/09/24. - started Levaquin 500 mg daily for 7 days on 02/05/2024. WBC increasing, if not improved after surgery consider repeat cultures or transition to zosyn or cefepime or carbapenem based on previous cultures. Or if improving consider increasing duration to 1 week after OR. 5. Chest pain on 02/04/2024, without recurrence, ruled out for [place] on initial troponin and followup and EKG, resolved - telemetry now stopped. - serial cardiac enzymes negative to date - no further evaluation warranted at this time, can consider as outpatient if symptoms recur. 6. Hyponatremia - worsened to as low as 125, Urine sodium was 11, likely hypovolemic. Now improved but Continue to follow. 7. Urinary retention. - attempted tapia removal, patient unable to void and had >1L urine output with tapia catheter. - continue tapia, recommend outpatient follow up with urology for further evaluation. Code: Full, surrogate is patient's son DVT prophylaxis: Aspirin 81mg BID Dispo: Anticipate discharge possibly to SNF tomorrow, medicine reconcilliation performed as if discharge on oral levaquin. Discussed with case management, surgeon today to formulate the above history, assessment and plan/ Time-Based Coding :: [TOTAL MINUTES] spent with patient and on the chart (including review of chart, obtaining history, exam, reviewing outside data, placing orders, documenting exam and treatment plan, and counseling patient) on [DATE]. Quality VTE Deep Vein Thrombosis/Pulmonary Embolism Present on Admission: No
[2024-02-10 18:00] VITALS: RESP 20
--- NOTE | 2024-02-10 18:16 | PC.NURSE ---
Pt had relatively uneventful day. Denies discomfort. SL left arm intact/patent. Sat in chair most of day w/o incidence. Plan for D/C in morning to [facility] in [place] via BLS Call light w/in reach, [pt calls appropriately for needs Continue w/plan for care.
[2024-02-10] MEDS: SODIUM CHLORIDE 0.9% FLUSH 10 ML IV (20:21)
[2024-02-10] MEDS: MONTELUKAST 10 MG TABLET PO (20:21)
[2024-02-10 20:30] VITALS: BP 148/84; PULSE 89; RESP 16; TEMP 37.1; O2SAT 98
[2024-02-10] MEDS: HYDROCODONE/ACET 10/325 TABLET 1 TAB PO (20:33)
[2024-02-11 05:00] VITALS: BP 165/67; PULSE 85; RESP 16; TEMP 36.7; O2SAT 93
[2024-02-11] MEDS: LEVOTHYROXINE 75 MCG TABLET PO (05:19)
[2024-02-11] MEDS: HYDROCODONE/ACET 5/325 TABLET 1 TAB PO ×2 (05:40→09:31)
[2024-02-11 06:30] LABS: Add Manual Diff / Slide Review NO; Basophils Absolute Auto 0 /uL (0-100); Basophils Percent Auto 0.3 % (0-2); Eosinophils Absolute Auto 0 /uL (0-450); Eosinophils Percent Auto 0.2 % (2-4); Lymphocytes Absolute Auto 1700 /uL (1100-4500); Lymphocytes Percent Auto 12.8 % (25-40); Mean Corpuscular HGB Conc 33.3 % (30-36); Mean Corpuscular Hemoglobin 29.6 PG (26-34); Mean Corpuscular Volume 88.8 fL (80-100); Monocytes Absolute Auto 1100 /uL (0-900); Monocytes Percent Auto 8.3 % (3-14); Neutrophils Absolute Auto 10400 /uL (1500-7000); Neutrophils Percent Auto 78.4 % (50-75); Platelet Count 321 X10^3/uL (150-400); Red Blood Cell Count 3.38 X10^6/uL (4.0-5.2); Red Cell Distribution Width 15.1 % (11.6-14.8); White Blood Cell Count 13.3 X10^3/uL (4.5-11.0)
[2024-02-11 06:40] LABS: BUN Creatinine Ratio 47.8 (6-22); Blood Urea Nitrogen 43 mg/dL (7-17); Calcium 8.3 mg/dL (8.4-10.2); Carbon Dioxide 30 mmol/L (22-32); Chloride 100 mmol/L (98-107); Estimated Glomerular Filt Rate > 60 mL/min (>60); Glucose 86 mg/dL (80-110); HEMOLYSIS < 15 (0-50); Magnesium 1.6 mg/dL (1.6-2.3); Potassium 4.1 mmol/L (3.4-5.1); Sodium 130 mmol/L (137-145)
--- NOTE | 2024-02-11 07:39 | PM.DS.1 ---
History of Present Illness History of Present Illness Chief complaint: Fall/Confusion Narrative: Per overnight provider, 89 years old female with a past medical history of hypertension and who lives at home by herself was brought to the emergency room status post fall with an unknown downtime from anywhere 24 hours to 36 hours before was checked in by family/friends. Was in significant pain and blood pressure was 213/86. Patient received IV pain medications in the emergency room and now drowsy. Unable to get any significant history from the patient. Most of the history has been obtained from the chart and caregivers. Further workup showed a white count of 16.5, hemoglobin of 14.6 and a platelet of 289. Sodium was 126 with a BUN of 29 with a creatinine of 1.08. AST/ALT was 187/61. Urine analysis is negative for leukocyte esterase. Urine toxicology screen is negative. Follow-up CT head and brain shows no acute process. CT cervical spine shows no significant fractures. CT chest and abdomen/pelvis showed superior dislocation of left hip arthroplasty age-indeterminate. Unable to correct the dislocation emergency room and further labs revealed a CPK of 2000. Reviewed with orthopedic surgery and recommended admission for optimizing medically before proceeding with surgery in the OR to fix the dislocation Discharge Providers Provider Date of admission: 01/30/24 01:10 Discharge Date: 02/11/24 Primary care physician: Osiel Mccarthy MD Consults: 01/30/24 14:24 Consult to Discharge Planning Routine Comment: Consult to Occupational Therapy Evaluate & Treat Comment: Physician Instructions: Evaluate and treat Consult to Physical Therapy Evaluate & Treat Comment: Physician Instructions: post op TETO protocol 01/31/24 14:33 Consult to Orthopedic Surgery Routine Comment: Consulting Provider: Raiza Lowry Reason for consultation: hip dislocation 02/03/24 11:48 Consult to General Surgery Routine Comment: Consulting Provider: Marcio Silver Reason for consultation: sacral decubitus Has provider been notified: Yes 02/03/24 18:15 Consult to Dietitian, Adult Routine Comment: Reason For Exam: optimize nutrtion pressure injury 02/05/24 11:28 Consult to Physical Therapy Evaluate & Treat Comment: Knee immobilizer when walking. D/c hip brace. Physician Instructions: Evaluate and Treat 02/06/24 12:04 Consult to Wound Care Routine Comment: Consulting Provider: Michelle Wound Care Discharge provider: Maged Hutson MD Summary Hospital Course Discharge Diagnosis: 1. Rhabdomyolysis likely secondary to fall with prolonged immobilization. Present on admission and resolved. - IV fluids have been stopped. CK was trended until <500 then stopped. Encourage oral intake. 2. 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 Present on admission and improved. - s/p closed reduction in OR with orthopedics 01/30/2024. -PT / OT complicated with lack of participation and compliance with immobilizer brace. Okay to continue with knee immobilizer per orthopedics team now. -posterior hip precautions per Orthopedics, outpatient follow-up with Dr. Rafael Herbert 3. Hypertension, present on admission and stable. -mildly elevated previously but adequate control now. Continue current medications. 4. Decubitus sacral ulcer, unknown chronicity, present on admission and increasing in size due to immobility, complicated by infection with Klebsiella and Pseudomonas. - continue wound vac therapy. - frequent turning - surgery consultation 02/03/2024, no debridement is indicated. Wound care recommended repeat evaluation, now surgery re-eval on 02/07 with wound vac placement and I&D of abscess on 02/09/24. - started Levaquin 500 mg daily for 7 days on 02/05/2024. 5. Chest pain on 02/04/2024, without recurrence, ruled out for [place] on initial troponin and followup and EKG, resolved - telemetry now stopped. - serial cardiac enzymes negative to date - no further evaluation warranted at this time, can consider as outpatient if symptoms recur. 6. Hyponatremia, present on admission and improved. - worsened to as low as 125, Urine sodium was 11, likely hypovolemic. Now improved but Continue to follow. 7. Urinary retention. Active. - attempted tapia removal, patient unable to void and had >1L urine output with tapia catheter. - continue tapia, recommend outpatient follow up with urology for further evaluation. Hospital Course: The patient was admitted with a hip dislocation which was relocated in the OR. The patient initially had hyponatremia which improved with fluids. The patient also had urinary retention and failed a voiding trial would be discharged with a Tapia catheter. In addition the patient had a sacral decubitus ulcer which was present on admission improved to be infected with Klebsiella and Pseudomonas. Ultimately this was debrided on February 08. The patient will be on levofloxacin for an additional 5 days from the time of discharge. The patient will require ongoing wound care. Wound vac will be continued at SNF. Status at Discharge Cognitive/behavioral status at discharge: at baseline, confused Functional status at discharge: uses cane/walker Overall status at discharge: patient is progressing back to baseline Time Spent with Patient Time spent: Greater than 30 minutes Exam Vital Signs (past 8 hours): - 02/11/24 05:00 Temperature 98.0 F Pulse Rate 85 Respiratory Rate 16 Blood Pressure 165/67 H Pulse Oximetry 93 Oxygen Flow Rate 0 Oxygen Delivery Method Room Air Oxygen Flow Rate 0 Narrative Exam Narrative: NAD, alert and oriented. Fluent speech. Lungs are clear, normal rate and effort. Heart is regular, no murmur gallop or rub. Abdomen is soft, non distended. Extremities are free of edema. Objective Labs 02/11/24 06:16 02/11/24 06:16 Labs: Laboratory Results - last 24 hr 02/11/24 06:16 WBC 13.3 H RBC 3.38 L Hgb 10.0 L Hct 30.0 L MCV 88.8 MCH 29.6 MCHC 33.3 RDW 15.1 H Plt Count 321 Neut % (Auto) 78.4 H Lymph % (Auto) 12.8 L Henry % (Auto) 8.3 Eos % (Auto) 0.2 L Baso % (Auto) 0.3 Neut # (Auto) 46278 H Lymph # (Auto) 1700 Henry # (Auto) 1100 H Eos # (Auto) 0 Baso # (Auto) 0 Sodium 130 L Potassium 4.1 Chloride 100 Carbon Dioxide 30 BUN 43 H Creatinine 0.90 Estimated GFR > 60 BUN/Creatinine Ratio 47.8 H Glucose 86 Calcium 8.3 L Magnesium 1.6 PFSH Social History household members: none Smoking Status: Never smoker alcohol intake: current Discharge Assessment & Plan Assessment and Plan Assessment: 1. Rhabdomyolysis likely secondary to fall with prolonged immobilization. Present on admission and resolved. - IV fluids have been stopped. CK was trended until <500 then stopped. Encourage oral intake. 2. 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 Present on admission and improved. - s/p closed reduction in OR with orthopedics 01/30/2024. -PT / OT complicated with lack of participation and compliance with immobilizer brace. Okay to continue with knee immobilizer per orthopedics team now. -posterior hip precautions per Orthopedics, outpatient follow-up with Dr. Rafael Herbert 3. Hypertension, present on admission and stable. -mildly elevated previously but adequate control now. Continue current medications. 4. Decubitus sacral ulcer, unknown chronicity, present on admission and increasing in size due to immobility, complicated by infection with Klebsiella and Pseudomonas. - continue wound vac therapy. - frequent turning - surgery consultation 02/03/2024, no debridement is indicated. Wound care recommended repeat evaluation, now surgery re-eval on 02/07 with wound vac placement and I&D of abscess on 02/09/24. - started Levaquin 500 mg daily for 7 days on 02/05/2024. 5. Chest pain on 02/04/2024, without recurrence, ruled out for [place] on initial troponin and followup and EKG, resolved - telemetry now stopped. - serial cardiac enzymes negative to date - no further evaluation warranted at this time, can consider as outpatient if symptoms recur. 6. Hyponatremia, present on admission and improved. - worsened to as low as 125, Urine sodium was 11, likely hypovolemic. Now improved but Continue to follow. 7. Urinary retention. Active. - attempted tapia removal, patient unable to void and had >1L urine output with tapia catheter. - continue tapia, recommend outpatient follow up with urology for further evaluation. Plan of Treatment: Discharge to SNF with PO antibiotics and wound care. Discharge Plan Discharge Plan Patient Disposition: [facility] Other facility: [facility] Under care of provider: [facility] physician Provider Discharge Comment: wound vac has a single black sponge and a bridge. Wound is 10cm x12cm x2cm (cavity) with undermining down toward the thigh. wound vac changes q4 days. continuous pressure at 125. Discharge orders & Medications Prescriptions: New cyclobenzaprine 10 mg Tablet 10 mg PO Q8HR PRN (Reason: Spasms) Qty: 20 0RF acetaminophen 325 mg Tablet 650 mg PO Q6H PRN (Reason: Fever/Mild Pain (1-3)) Qty: 30 0RF polyethylene glycol 3350 17 gram Powder In Packet 17 gm PO DAILY PRN (Reason: Constipation) Qty: 14 0RF levofloxacin 250 mg Tablet 750 mg PO Q48H 8 Days Qty: 4 0RF aspirin 81 mg Tablet,Delayed Release (Dr/Ec) 81 mg PO BID 42 Days Qty: 84 0RF lisinopril 10 mg Tablet 10 mg PO DAILY Qty: 30 0RF docusate sodium 100 mg Capsule 100 mg PO BID Qty: 30 0RF Continued levothyroxine [Synthroid] 75 mcg tablet 75 mcg PO DAILY famotidine 20 mg tablet 20 mg PO DAILY estradiol 1 mg tablet 1 mg PO DAILY montelukast 10 mg tablet 10 mg PO DAILY hydrocodone-acetaminophen 10-325 mg tablet 1 tab PO Q6H PRN (Reason: pain) Qty: 20 0RF Discontinued hydrocodone-acetaminophen 5-325 mg tablet 1 tab PO Q6H PRN (Reason: pain) Medication counseling provided by Pharmacist: No Follow up/Referrals: Osiel Mccarthy MD [Primary Care Provider] - Rafael Herbert MD [Physician] - None (Pt can follow up w/ Dr Herbert in at any time for further evaluation of left hip, if desired. There is no incision, so no wound check needs to be performed.) Discharge Health Status Multidrug resistant organism: No MDRO Precautions: [place] Diet/Activity/Treatments Diet: Regular Liquid consistency: Normal/Thin Food texture: Regular Activity: Weightbearing as tolerated to left leg. She should have a hip abduction pillow while in bed, but this can be discontinued if she doesn't typically sleep on her side. Knee immobilizer to left leg when walking. Posterior hip precautions. Catheter: 2-way Tapia Catheter comment: Placed 02/07 for urinary obstruction. Outpatient follow up with urology. Skin/Wound/Dressing Care Other wound treatment: Continue wound vac and recommend outpatient wound care following. Wound vac placed 02/09/24. Underlying cavity measures 10cm X 12 cm x2cm. Opening in the skin itself 8cm x 7cm per operative report. [facility] Reason for rehabilitation: Post-operative therapy and Recovery r/t decondition Rehab type: Physical therapy and Occupational therapy Visit Report/Discharge Packet Stand Alone Forms: Patient Portal/API Discharge Data Primary Care Provider: Osiel Mccarthy Quality VTE Deep Vein Thrombosis/Pulmonary Embolism Present on Admission: No
--- NOTE | 2024-02-11 08:27 | CM.DPC ---
DCP Cont. Reviewed EMR and team rounds for status updates. [facility] sc[facility] for 9:30am p/u. Discussed d/c plan w/son, Mario, who expressed understanding. No further DCP needs indicated at this time.
--- NOTE | 2024-02-11 09:48 | PC.NURSE ---
Pt preparing to D/C to [facility] in [place]. Wound vac D/C intact; new gauze dsg placed No drainage noted SL D/C intact. Leigh cath patent clear yellow urine. Discharging w/ F/C in place. Ambulance here to transport. Report called to center. Pt D/C in stable condition.
== END 2024-02-11 09:45 | DRG 463 ==
LOC: ED 18:22 → AC 01-30 01:10
PROVIDERS: Anesthesiology; Internal Medicine; Orthopaedic Surgery Adult Reconstructive Orthopaedic Surgery; Surgery; Admitting Provider Internal Medicine; Emergency Provider Emergency Medicine; PCP Internal Medicine; Referring Provider Emergency Medicine; Visit Provider Internal Medicine
PROC: 0SWBXJZ Revision of Synthetic Substitute in Left Hip Joint, External Approach (ICD-10-PCS; principal; 2024-01-30 12:45)
PROC: 0JB70ZZ Excision of Back Subcutaneous Tissue and Fascia, Open Approach (ICD-10-PCS; CPT 46040; principal; 2024-02-09 14:00)
DX: T79.6XXA Traumatic ischemia of muscle, initial encounter (principal); E43 Unspecified severe protein-calorie malnutrition; Z68.1 Body mass index [BMI] 19.9 or less, adult; T84.021A Dislocation of internal left hip prosthesis, initial encounter; I96 Gangrene, not elsewhere classified; I16.0 Hypertensive urgency; F41.9 Anxiety disorder, unspecified; I10 Essential (primary) hypertension; R07.9 Chest pain, unspecified; B96.5 Pseudomonas (aeruginosa) (mallei) (pseudomallei) as the cause of diseases classified elsewhere; B96.1 Klebsiella pneumoniae [K. pneumoniae] as the cause of diseases classified elsewhere; R62.7 Adult failure to thrive; R33.9 Retention of urine, unspecified; L89.150 Pressure ulcer of sacral region, unstageable; E07.9 Disorder of thyroid, unspecified; K21.9 Gastro-esophageal reflux disease without esophagitis; W18.30XA Fall on same level, unspecified, initial encounter
CPT/HCPCS: 27265; 36415; 36592; 70450; 71250; 72125; 73502; 73552; 74176; 76000; 80048; 80053; 80305; 80320; 81001; 81003; 82140; 82550; 82962; 83605; 83735; 83935; 84146; 84300; 84443; 84484; 85014; 85018; 85025; 85610; 85730; 87040; 87070; 87075; 87077; 87186; 87205; 93005; 94640; 94760; 96374; 97110; 97116; 97129; 97130; 97162; 97166; 97530; 97535; 99285; 99291; A9270; J0330; J0360; J1100; J1170; J2270; J2405; J2704; J3010; J7613